=== PATIENT | male | born 1970 | race American Indian/Alaskan Native ===

== ENCOUNTER 2017-05-06 20:19 | Emergency (ER) | payer SELFPAY ==
[2017-05-06 21:26] LABS: Basophils # (Auto) 0.1 K/mm3 (0.0-0.1); Basophils % (Auto) 0.6 % (0.0-1.8); Eosinophils # (Auto) 0.2 K/mm3 (0.0-0.4); Hematocrit 39.7 % (35.5-45.6); Hemoglobin 12.6 gm/dl (11.8-15.2); Lymphocytes # (Auto) 2.4 K/mm3 (1.2-5.4); Lymphocytes % (Auto) 24.9 % (13.4-35.0); Mean Corpuscular HGB Conc 32 % (32-34); Mean Corpuscular Hemoglobin 26 pg (28-32); Mean Corpuscular Volume 82 fl (84-94); Monocytes # (Auto) 0.9 K/mm3 (0.0-0.8); Platelet Count 189 K/mm3 (140-440); Red Blood Count 4.83 M/mm3 (3.65-5.03); Red Cell Distribution Width 14.3 % (13.2-15.2)
[2017-05-06 21:51] LABS: BUN/Creatinine Ratio 14; Blood Urea Nitrogen 20 mg/dL (9-20); Calcium 8.8 mg/dL (8.4-10.2); Hemolysis Index 5
--- NOTE | 2017-05-06 22:04 | XRay Report ---
FINAL REPORT PROCEDURE: XR CHEST ROUTINE 2V TECHNIQUE: PA and lateral chest radiographs were obtained. CPT 56726 HISTORY: Shortness of breath COMPARISON: No prior studies are available for comparison. FINDINGS: Heart: The cardiac silhouette is enlarged. Mediastinum/Vessels: Normal. Lungs/Pleural space: No pulmonary infiltrate, effusion, or pneumothorax. Bony thorax: No acute osseous abnormality. Other: IMPRESSION: Prominent cardiac silhouette.
[2017-05-07] MEDS ORDERED: CATAPRES PO ONE ×2 (03:16→12:15)
[2017-05-07] MEDS ORDERED: CATAPRES ONE (03:19)
[2017-05-07] MEDS ORDERED: NORVASC PO ONE (12:15)
[2017-05-07] MEDS ORDERED: LASIX IV ONE (14:22)
[2017-05-07 14:36] VITALS: BP 168/93
--- NOTE | 2017-05-07 16:02 | Emergency Department Report ---
ED Shortness of Breath HPI - General Chief Complaint: Dyspnea/Respdistress Stated Complaint: HEADACHE Source: patient Mode of arrival: Ambulatory Limitations: No Limitations - History of Present Illness Initial Comments: Mr. Power has hx of systolic HF. He presents to the ER because he feels the "fluid in my chest is backing up." He has run out of all his medications 3 weeks ago. He has PND, orthopnea, and leg edema. He denies chest pain. He denies any discomfort. MD Complaint: shortness of breath -: Gradual, week(s) (1) Pain Scale: 4 Consistency: constant Improves With: nothing Worsens With: lying flat, exertion Known History Of: congestive heart failure Treatments Prior to Arrival: none - Related Data Home Medications Medication Instructions Recorded Confirmed Last Taken Clonidine 0.2 mg PO BID 05/07/17 05/07/17 Unknown Losartan Potassium 50 mg PO DAILY 05/07/17 05/07/17 Unknown Previous Rx's Medication Instructions Recorded Last Taken Type Aspirin [Aspirin TAB] 325 mg PO QDAY #30 tablet 05/29/16 Unknown Rx AtorvaSTATin [Lipitor] 20 mg PO QHS #30 tablet 05/29/16 Unknown Rx Carvedilol [Coreg] 25 mg PO BID #60 tablet 05/29/16 Unknown Rx Clopidogrel [Plavix] 75 mg PO QDAY #30 tablet 05/29/16 Unknown Rx Furosemide [Lasix TAB] 40 mg PO BID #60 tablet 05/29/16 Unknown Rx Spironolactone [Aldactone] 25 mg PO QDAY #30 tablet 05/29/16 Unknown Rx amLODIPine [Norvasc] 5 mg PO QDAY #30 tablet 05/29/16 Unknown Rx hydrALAZINE [Apresoline TAB] 100 mg PO Q8HR #90 tab 05/29/16 Unknown Rx AtorvaSTATin [Lipitor] 20 mg PO QHS #30 tab 05/07/17 Unknown Rx Carvedilol [Coreg] 25 mg PO BID #60 tablet 05/07/17 Unknown Rx Clopidogrel [Plavix] 75 mg PO QDAY #30 tablet 05/07/17 Unknown Rx Furosemide [Lasix TAB] 40 mg PO BID #60 tablet 05/07/17 Unknown Rx Losartan [Cozaar] 50 mg PO QDAY #30 tablet 05/07/17 Unknown Rx amLODIPine [Norvasc] 5 mg PO DAILY #30 tab 05/07/17 Unknown Rx cloNIDine [Catapres] 0.2 mg PO BID #60 tablet 05/07/17 Unknown Rx hydrALAZINE [Apresoline TAB] 100 mg PO TID #90 tab 05/07/17 Unknown Rx Allergies Allergy/AdvReac Type Severity Reaction Status Date / Time No Known Allergies Allergy Verified 08/02/15 11:37 ED Review of Systems ROS: Stated complaint: HEADACHE Other details as noted in HPI Comment: All other systems reviewed and negative Constitutional: denies: chills, malaise Respiratory: denies: cough Cardiovascular: denies: chest pain ED Past Medical Hx - Past Medical History Hx Hypertension: Yes Hx Heart Attack/AMI: No Hx Congestive Heart Failure: Yes Hx Diabetes: Yes Hx Deep Vein Thrombosis: No Hx Asthma: No Hx COPD: No Hx HIV: No Additional medical history: OBESITY - Surgical History Hx Coronary Stent: No Hx Pacemaker: No Hx Internal Defibrillator: No Additional Surgical History: incision and drainage rectal area. - Social History Smoking Status: Former Smoker Substance Use Type: None - Medications Home Medications: Home Medications Medication Instructions Recorded Confirmed Last Taken Type Aspirin [Aspirin TAB] 325 mg PO QDAY #30 tablet 05/29/16 05/07/17 Unknown Rx AtorvaSTATin [Lipitor] 20 mg PO QHS #30 tablet 05/29/16 05/07/17 Unknown Rx Carvedilol [Coreg] 25 mg PO BID #60 tablet 05/29/16 05/07/17 Unknown Rx Clopidogrel [Plavix] 75 mg PO QDAY #30 tablet 05/29/16 05/07/17 Unknown Rx Furosemide [Lasix TAB] 40 mg PO BID #60 tablet 05/29/16 05/07/17 Unknown Rx Spironolactone [Aldactone] 25 mg PO QDAY #30 tablet 05/29/16 05/07/17 Unknown Rx amLODIPine [Norvasc] 5 mg PO QDAY #30 tablet 05/29/16 05/07/17 Unknown Rx hydrALAZINE [Apresoline TAB] 100 mg PO Q8HR #90 tab 05/29/16 05/07/17 Unknown Rx AtorvaSTATin [Lipitor] 20 mg PO QHS #30 tab 05/07/17 Unknown Rx Carvedilol [Coreg] 25 mg PO BID #60 tablet 05/07/17 Unknown Rx Clonidine 0.2 mg PO BID 05/07/17 05/07/17 Unknown History Clopidogrel [Plavix] 75 mg PO QDAY #30 tablet 05/07/17 Unknown Rx Furosemide [Lasix TAB] 40 mg PO BID #60 tablet 05/07/17 Unknown Rx Losartan Potassium 50 mg PO DAILY 05/07/17 05/07/17 Unknown History Losartan [Cozaar] 50 mg PO QDAY #30 tablet 05/07/17 Unknown Rx amLODIPine [Norvasc] 5 mg PO DAILY #30 tab 05/07/17 Unknown Rx cloNIDine [Catapres] 0.2 mg PO BID #60 tablet 05/07/17 Unknown Rx hydrALAZINE [Apresoline TAB] 100 mg PO TID #90 tab 05/07/17 Unknown Rx ED Physical Exam - General Limitations: No Limitations General appearance: alert, in no apparent distress - Head Head exam: Present: atraumatic, normocephalic - Eye Eye exam: Present: normal appearance - ENT ENT exam: Present: mucous membranes moist - Neck Neck exam: Present: normal inspection - Respiratory Respiratory exam: Present: normal lung sounds bilaterally. Absent: respiratory distress, wheezes, rales, rhonchi - Cardiovascular Cardiovascular Exam: Present: regular rate, normal rhythm, normal heart sounds. Absent: systolic murmur, diastolic murmur, rubs, gallop, S3 - GI/Abdominal GI/Abdominal exam: Present: soft, normal bowel sounds. Absent: distended, tenderness, guarding - Rectal Rectal exam: Present: deferred - Extremities Exam Extremities exam: Present: normal inspection, pedal edema - Back Exam Back exam: Present: normal inspection - Neurological Exam Neurological exam: Present: alert, oriented X3 - Psychiatric Psychiatric exam: Present: normal affect, normal mood - Skin Skin exam: Present: warm, dry, intact, normal color. Absent: rash ED Course Vital Signs 05/06/17 05/07/17 05/07/17 20:21 03:08 03:23 Temperature 98.8 F 98.8 F Pulse Rate 86 79 79 Respiratory 16 19 Rate Blood Pressure 190/117 198/129 198/129 Blood Pressure [Right] O2 Sat by Pulse 95 98 Oximetry 05/07/17 05/07/17 05/07/17 12:06 12:19 14:36 Temperature 98.8 F Pulse Rate 77 79 72 Respiratory 20 16 Rate Blood Pressure 191/128 Blood Pressure 191/128 168/93 [Right] O2 Sat by Pulse 98 95 Oximetry ED Medical Decision Making - Lab Data Result diagrams: 05/06/17 21:07 05/06/17 21:07 Laboratory Results - last 24 hr 05/06/17 05/06/17 05/06/17 21:07 21:07 21:07 WBC 9.8 RBC 4.83 Hgb 12.6 Hct 39.7 MCV 82 L MCH 26 L MCHC 32 RDW 14.3 Plt Count 189 Lymph % (Auto) 24.9 [place] % (Auto) 9.0 H Eos % (Auto) 2.0 Baso % (Auto) 0.6 Lymph # 2.4 [place] # 0.9 H Eos # 0.2 Baso # 0.1 Seg Neutrophils % 63.5 Seg Neutrophils # 6.2 Sodium 137 Potassium 3.7 Chloride 97.6 L Carbon Dioxide 27 Anion Gap 16 BUN 20 Creatinine 1.4 Estimated GFR > 60 BUN/Creatinine Ratio 14 Glucose 201 H Calcium 8.8 NT-Pro-B Natriuret Pep 1568 H - EKG Data 05/07/17 15:57 EKG NSR 80 bpm nl axis normal intervals positive LVH with nonspecific T-wave pattern and LVH repolarization abnormality unchanged from EKG obtained [address] elevation - Radiology Data Radiology results: report reviewed - Medical Decision Making Mr. Power presents with mild exacerbation of CHF without acute issues or ACS. He appears well. Able to lay in bed at 45 degrees without discomfort. I have refilled the following prescriptions: Hydralazine Carvedilol Amlodipine Losartan Furosemide Clopidogrel Atorvastatin Critical care attestation.: If time is entered above; I have spent that time in minutes in the direct care of this critically ill patient, excluding procedure time. ED Disposition Clinical Impression: Acute systolic CHF (congestive heart failure) Disposition: DC-01 TO HOME OR SELFCARE Is pt being admited?: No Does the pt Need Aspirin: No Condition: Good Prescriptions: AtorvaSTATin [Lipitor] 20 mg PO QHS #30 tab amLODIPine [Norvasc] 5 mg PO DAILY #30 tab Carvedilol [Coreg] 25 mg PO BID #60 tablet cloNIDine [Catapres] 0.2 mg PO BID #60 tablet Clopidogrel [Plavix] 75 mg PO QDAY #30 tablet Furosemide [Lasix TAB] 40 mg PO BID #60 tablet hydrALAZINE [Apresoline TAB] 100 mg PO TID #90 tab Losartan [Cozaar] 50 mg PO QDAY #30 tablet Referrals: TERESA FREY MD [Primary Care Provider] - 3-5 Days
== END 2017-05-07 16:34 | disposition home or self-care (01) ==
LOC: ED 20:19
DX: I11.0 Hypertensive heart disease with heart failure (principal); I50.21 Acute systolic (congestive) heart failure; E11.9 Type 2 diabetes mellitus without complications; Z87.891 Personal history of nicotine dependence
CPT/HCPCS: 36415; 71046; 80048; 83880; 85025; 93005; 93010; 96374; 99284; J1940

== ENCOUNTER 2017-05-24 02:15 | Inpatient (IN) | payer SELFPAY ==
[2017-05-24] MEDS ORDERED: CATAPRES ONE (02:53)
[2017-05-24 03:24] LABS: Basophils % (Auto) 0.3 % (0.0-1.8); Eosinophils # (Auto) 0.3 K/mm3 (0.0-0.4); Eosinophils % (Auto) 2.5 % (0.0-4.3); Hematocrit 39.8 % (35.5-45.6); Hemoglobin 12.9 gm/dl (11.8-15.2); Lymphocytes # (Auto) 2.8 K/mm3 (1.2-5.4); Lymphocytes % (Auto) 23.3 % (13.4-35.0); Mean Corpuscular HGB Conc 33 % (32-34); Mean Corpuscular Hemoglobin 27 pg (28-32); Mean Corpuscular Volume 83 fl (84-94); Monocytes # (Auto) 1.2 K/mm3 (0.0-0.8); Monocytes % (Auto) 10.4 % (0.0-7.3); Platelet Count 198 K/mm3 (140-440); Red Blood Count 4.81 M/mm3 (3.65-5.03); Red Cell Distribution Width 14.5 % (13.2-15.2)
[2017-05-24] MEDS ORDERED: CATAPRES PO ONE (03:30)
[2017-05-24 03:43] LABS: Calcium 9.1 mg/dL (8.4-10.2)
--- NOTE | 2017-05-24 04:08 | XRay Report ---
FINAL REPORT EXAM: XR CHEST ROUTINE 2V HISTORY: Shortness of breath TECHNIQUE: PA and lateral chest radiographs PRIORS: 05/06/2017 FINDINGS: No mediastinal shift. Cardiac silhouette is enlarged and unchanged. No pneumothorax, effusion, or focal pulmonary opacity. No acute skeletal finding. IMPRESSION: Unchanged enlargement of the cardiac silhouette compared to 05/06/2017, which may be secondary to primary cardiomegaly or pericardial effusion. Correlation with cardiac function is requested.
[2017-05-24 04:26] LABS: Chol/HDL Ratio 6.81 %
[2017-05-24] MEDS ORDERED: LASIX IV ONE ×2 (06:42→13:52)
[2017-05-24] MEDS ORDERED: BABY ASPIRIN PO ONE (06:42)
--- NOTE | 2017-05-24 06:47 | Emergency Department Report ---
ED Chest Pain HPI - General Chief Complaint: Chest Pain Stated Complaint: ANNELIESE; CP Time Seen by Provider: 05/24/17 06:31 Source: patient Mode of arrival: Ambulatory Limitations: No Limitations - History of Present Illness Initial Comments: This is a 46-year-old male presents to the emergency department with complaint of "CHF" as he says that he has "a lot of fluid building up in my body." He has a history of CHF, diabetes, hypertension. He was here in late April for a medication refill of his hypertensive meds, diabetic meds and diuretics but says that he does not get paid until tomorrow and therefore could not afford to refill those medications. He has a primary care physician through [facility], and says he used to see [facility]. He denies any tobacco or illicit drug use or abuse. He drove himself in to be seen today and did not take anything for her symptoms prior to presentation. No known aggravating or alleviating factors. He does feel that there is lower extremity swelling. He denies any nausea, vomiting, diaphoresis , back pain. - Related Data Previous Rx's Medication Instructions Recorded Last Taken Type Aspirin [Aspirin TAB] 325 mg PO QDAY #30 tablet 05/29/16 Unknown Rx Spironolactone [Aldactone] 25 mg PO QDAY #30 tablet 05/29/16 Unknown Rx AtorvaSTATin [Lipitor] 20 mg PO QHS #30 tab 05/07/17 Unknown Rx Carvedilol [Coreg] 25 mg PO BID #60 tablet 05/07/17 Unknown Rx Clopidogrel [Plavix] 75 mg PO QDAY #30 tablet 05/07/17 Unknown Rx Furosemide [Lasix TAB] 40 mg PO BID #60 tablet 05/07/17 Unknown Rx Losartan [Cozaar] 50 mg PO QDAY #30 tablet 05/07/17 Unknown Rx amLODIPine [Norvasc] 5 mg PO DAILY #30 tab 05/07/17 Unknown Rx cloNIDine [Catapres] 0.2 mg PO BID #60 tablet 05/07/17 Unknown Rx hydrALAZINE [Apresoline TAB] 100 mg PO TID #90 tab 05/07/17 Unknown Rx Allergies Allergy/AdvReac Type Severity Reaction Status Date / Time No Known Allergies Allergy Verified 08/02/15 11:37 Heart Score - HEART Score History: Slightly suspicious EKG: Non-specific Age: 45-65 Risk factors: 1-2 risk factors Troponin: < normal limit HEART Score: 3 - Critical Actions Critical Actions: 0-3 pts:0.9-1.7%risk of adverse cardiac event.Candidate for discharge ED Review of Systems ROS: Stated complaint: ANNELIESE; CP Other details as noted in HPI Comment: All other systems reviewed and negative Constitutional: denies: chills, fever Eyes: denies: eye pain, eye discharge, vision change ENT: denies: ear pain, throat pain Respiratory: shortness of breath. denies: cough Cardiovascular: chest pain, edema Gastrointestinal: denies: abdominal pain, nausea, diarrhea Genitourinary: denies: urgency, dysuria Musculoskeletal: denies: back pain, joint swelling, arthralgia Skin: denies: rash, lesions Neurological: denies: headache, weakness, paresthesias ED Past Medical Hx - Past Medical History Previous Medical History?: Yes Hx Hypertension: Yes Hx Heart Attack/AMI: No Hx Congestive Heart Failure: Yes Hx Diabetes: Yes Hx Deep Vein Thrombosis: No Hx Asthma: No Hx COPD: No Hx HIV: No Additional medical history: OBESITY - Surgical History Past Surgical History?: Yes Hx Coronary Stent: No Hx Pacemaker: No Hx Internal Defibrillator: No Additional Surgical History: incision and drainage rectal area. - Social History Smoking Status: Former Smoker Substance Use Type: None - Medications Home Medications: Home Medications Medication Instructions Recorded Confirmed Last Taken Type Aspirin [Aspirin TAB] 325 mg PO QDAY #30 tablet 05/29/16 05/07/17 Unknown Rx Spironolactone [Aldactone] 25 mg PO QDAY #30 tablet 05/29/16 05/07/17 Unknown Rx AtorvaSTATin [Lipitor] 20 mg PO QHS #30 tab 05/07/17 Unknown Rx Carvedilol [Coreg] 25 mg PO BID #60 tablet 05/07/17 Unknown Rx Clopidogrel [Plavix] 75 mg PO QDAY #30 tablet 05/07/17 Unknown Rx Furosemide [Lasix TAB] 40 mg PO BID #60 tablet 05/07/17 Unknown Rx Losartan [Cozaar] 50 mg PO QDAY #30 tablet 05/07/17 Unknown Rx amLODIPine [Norvasc] 5 mg PO DAILY #30 tab 05/07/17 Unknown Rx cloNIDine [Catapres] 0.2 mg PO BID #60 tablet 05/07/17 Unknown Rx hydrALAZINE [Apresoline TAB] 100 mg PO TID #90 tab 05/07/17 Unknown Rx ED Physical Exam - General Limitations: No Limitations - Other Other exam information: GENERAL: The patient is well-developed well-nourished. HENT: Normocephalic. Atraumatic. Patient has moist mucous membranes. EYES: Extraocular motions are intact. Pupils equal reactive to light bilaterally. NECK: Supple. Trachea is midline. CHEST/LUNGS: Coarse breath sounds throughout the chest. No tachypnea or accessory muscle use. There is no respiratory distress noted. HEART/CARDIOVASCULAR: Regular. There is no tachycardia. There is no murmur. ABDOMEN: Abdomen is soft, nontender. Patient has normal bowel sounds. Morbidly obese habitus. SKIN: Skin is warm and dry. 2+ pitting edema to bilateral lower extremities. NEURO: The patient is awake, alert, and oriented. The patient is cooperative. The patient has no focal neurologic deficits. The patient has normal speech. MUSCULOSKELETAL: There is no tenderness or deformity. There is no limitation range of motion. There is no evidence of acute injury. ED Course Vital Signs 05/24/17 05/24/17 02:37 06:35 Temperature 98.6 F 98.3 F Pulse Rate 84 76 Respiratory 20 12 Rate Blood Pressure 179/123 Blood Pressure 185/116 [Left] O2 Sat by Pulse 92 99 Oximetry MERVAT score - Mervat Score Age > 65: (0) No Aspirin use within the Past 7 Days: (0) No 3 or more CAD Risk Factors: (1) Yes 2 or more Angina events in past 24 hrs: (1) Yes Known CAD with more than 50% Stenosis: (0) No Elevated Cardiac Markers: (0) No ST Deviation Greater than 0.5mm: (0) No MERVAT Score: 2 ED Medical Decision Making - Lab Data Result diagrams: 05/24/17 02:52 05/24/17 02:52 - EKG Data -: EKG Interpreted by Me EKG shows normal: sinus rhythm, axis, intervals (prolonged IA interval), QRS complexes (incomplete left bundle branch block, LVH), ST-T waves (early repolarization) Rate: normal - EKG Data When compared to previous EKG there are: no significant change Interpretation: unchanged when compared t (05/06/17) - Radiology Data Radiology results: image reviewed interpreted by me: Chest x-ray shows moderate cardiomegaly. No obvious pleural effusion or pneumonia. - Medical Decision Making This patient presented with shortness of breath and chest pain and lower extremity swelling. He has a history of CHF and does appear to have an exacerbation with a BNP of November 1999. He also has elevated troponin that came in at 0.041 but has trended down into the normal range since he has been in the emergency department. He was given some Lasix for diuresis. He will be admitted to the hospital for further evaluation and cardiology consultation and was accepted for admission by the hospitalist service. I have discussed with the patient the lab and imaging results and the plan for admission to the hospital and he understands and agrees with plan. - Differential Diagnosis CHF, [place], pneumonia, venous stasis Critical Care Time: No Critical care attestation.: If time is entered above; I have spent that time in minutes in the direct care of this critically ill patient, excluding procedure time. ED Disposition Clinical Impression: Renal insufficiency Hypertension Qualifiers: Hypertension type: essential hypertension Qualified Code(s): I10 - Essential ( primary) hypertension CHF exacerbation Qualifiers: Congestive heart failure type: unspecified Qualified Code(s): I50.9 - Heart failure, unspecified Chest pain Qualifiers: Chest pain type: unspecified Qualified Code(s): R07.9 - Chest pain, unspecified Edema Qualifiers: Edema type: unspecified Qualified Code(s): R60.9 - Edema, unspecified Disposition: DC-09 OP ADMIT IP TO THIS HOSP Is pt being admited?: Yes Condition: Stable Instructions: Chest Pain (ED), Hypertension (ED) Time of Disposition: 10:48
[2017-05-24] MEDS: HEPARIN SUB-Q SCH ×2 (09:26→18:58)
[2017-05-24] MEDS ORDERED: TYLENOL PO PRN (13:05)
[2017-05-24] MEDS ORDERED: D50W (25GM) Syringe IV PRN (13:05)
[2017-05-24] MEDS ORDERED: MILK OF MAGNESIA PO PRN (13:05)
[2017-05-24] MEDS ORDERED: ZOFRAN IV PRN (13:05)
[2017-05-24] MEDS ORDERED: DULCOLAX PR PRN (13:05)
--- NOTE | 2017-05-24 13:25 | History and Physical Report ---
History of Present Illness Date of examination: 05/24/17 Date of admission: 05/24/17 Chief complaint: sob History of present illness: This is a 46-year-old -[place] male with significant past medical history CHF, diabetes mellitus type 2 and hypertension who presents to the emergency department with complaints of shortness of breath, orthopnea and lower extremity edema for the past 3 weeks. He was here in late April for a medication refill of his hypertensive meds, diabetic meds and diuretics but says that he does not get paid until tomorrow and therefore could not afford to refill those medications. He has a primary care physician through [facility] , and says he used to see [facility]. He denies any tobacco or illicit drug use or abuse. He drove himself in to be seen today and did not take anything for her symptoms prior to presentation. No known aggravating or alleviating factors. Patient reports that he was diagnosed with diabetes and CHF last year. Patient denies any chest pain, fever, chills, cough or cold symptoms. Past History Past Medical History: diabetes, heart failure, hypertension Past Surgical History: No surgical history Social history: no significant social history Family history: no significant family history Medications and Allergies Allergies Allergy/AdvReac Type Severity Reaction Status Date / Time No Known Allergies Allergy Verified 08/02/15 11:37 Home Medications Medication Instructions Recorded Confirmed Last Taken Type Aspirin [Aspirin TAB] 325 mg PO QDAY #30 tablet 05/29/16 05/24/17 Unknown Rx Spironolactone [Aldactone] 25 mg PO QDAY #30 tablet 05/29/16 05/24/17 Unknown Rx AtorvaSTATin [Lipitor] 20 mg PO QHS #30 tab 05/07/17 05/24/17 Unknown Rx Carvedilol [Coreg] 25 mg PO BID #60 tablet 05/07/17 05/24/17 Unknown Rx Clopidogrel [Plavix] 75 mg PO QDAY #30 tablet 05/07/17 05/24/17 Unknown Rx Furosemide [Lasix TAB] 40 mg PO BID #60 tablet 05/07/17 05/24/17 Unknown Rx Losartan [Cozaar] 50 mg PO QDAY #30 tablet 05/07/17 05/24/17 Unknown Rx amLODIPine [Norvasc] 5 mg PO DAILY #30 tab 05/07/17 05/24/17 Unknown Rx cloNIDine [Catapres] 0.2 mg PO BID #60 tablet 05/07/17 05/24/17 Unknown Rx hydrALAZINE [Apresoline TAB] 100 mg PO TID #90 tab 05/07/17 05/24/17 Unknown Rx Active Meds: Active Medications Acetaminophen (Tylenol) 650 mg PO Q4H PRN PRN Reason: Pain MILD(1-3)/Fever >100.5/SANTANA Bisacodyl (Dulcolax) 10 mg CO QDAY PRN PRN Reason: Constipation unrelieved by MOM Dextrose (D50w (25gm) Syringe) 50 ml IV PRN PRN PRN Reason: Hypoglycemia Heparin Sodium (Porcine) (Heparin) 5,000 unit SUB-Q Q8H MARIBEL Last Admin: 05/24/17 09:26 Dose: 5,000 unit Magnesium Hydroxide (Milk Of Magnesia) 30 ml PO Q4H PRN PRN Reason: Constipation Ondansetron HCl (Zofran) 4 mg IV Q8H PRN PRN Reason: N/V unrelieved by Reglan Review of Systems All systems: negative Exam - Constitutional Vitals: Temp Pulse Resp BP Pulse Ox 98.3 F 76 12 185/116 99 05/24/17 06:35 05/24/17 06:35 05/24/17 06:35 05/24/17 06:35 05/24/17 06:35 General appearance: Present: no acute distress, well-nourished - EENT Eyes: Present: PERRL ENT: hearing intact, clear oral mucosa - Neck Neck: Present: supple, normal ROM - Respiratory Respiratory effort: normal Respiratory: bilateral: rales - Cardiovascular Heart Sounds: Present: S1 & S2. Absent: rub, click - Extremities Extremities: pulses symmetrical, No edema Peripheral Pulses: within normal limits - Abdominal General gastrointestinal: Present: soft, non-tender, non-distended, normal bowel sounds Male genitourinary: Present: normal - Integumentary Integumentary: Present: clear, warm, dry - Musculoskeletal Musculoskeletal: gait normal, strength equal bilaterally - Psychiatric Psychiatric: appropriate mood/affect, intact judgment & insight - Neurologic Neurologic: CNII-XII intact, moves all extremities Results - Labs CBC & Chem 7: 05/24/17 02:52 05/24/17 02:52 Labs: Laboratory Last Values WBC 12.0 K/mm3 (4.5-11.0) H 05/24/17 02:52 RBC 4.81 M/mm3 (3.65-5.03) 05/24/17 02:52 Hgb 12.9 gm/dl (11.8-15.2) 05/24/17 02:52 Hct 39.8 % (35.5-45.6) 05/24/17 02:52 MCV 83 fl (84-94) L 05/24/17 02:52 MCH 27 pg (28-32) L 05/24/17 02:52 MCHC 33 % (32-34) 05/24/17 02:52 RDW 14.5 % (13.2-15.2) 05/24/17 02:52 Plt Count 198 K/mm3 (140-440) 05/24/17 02:52 Lymph % (Auto) 23.3 % (13.4-35.0) 05/24/17 02:52 [place] % (Auto) 10.4 % (0.0-7.3) H 05/24/17 02:52 Eos % (Auto) 2.5 % (0.0-4.3) 05/24/17 02:52 Baso % (Auto) 0.3 % (0.0-1.8) 05/24/17 02:52 Lymph # 2.8 K/mm3 (1.2-5.4) 05/24/17 02:52 [place] # 1.2 K/mm3 (0.0-0.8) H 05/24/17 02:52 Eos # 0.3 K/mm3 (0.0-0.4) 05/24/17 02:52 Baso # 0.0 K/mm3 (0.0-0.1) 05/24/17 02:52 Seg Neutrophils % 63.5 % (40.0-70.0) 05/24/17 02:52 Seg Neutrophils # 7.6 K/mm3 (1.8-7.7) 05/24/17 02:52 Sodium 138 mmol/L (137-145) 05/24/17 02:52 Potassium 4.0 mmol/L (3.6-5.0) 05/24/17 02:52 Chloride 97.1 mmol/L (98-107) L 02/09/18 02:52 Carbon Dioxide 25 mmol/L (22-30) 05/24/17 02:52 Anion Gap 20 mmol/L 05/24/17 02:52 BUN 23 mg/dL (9-20) H 05/24/17 02:52 Creatinine 1.6 mg/dL (0.8-1.5) H 05/24/17 02:52 Estimated GFR 57 ml/min 05/24/17 02:52 BUN/Creatinine Ratio 14 % 05/24/17 02:52 Glucose 151 mg/dL (75-100) H 05/24/17 02:52 Calcium 9.1 mg/dL (8.4-10.2) 05/24/17 02:52 Troponin T 0.024 ng/mL (0.00-0.029) 05/24/17 09:01 NT-Pro-B Natriuret Pep 1856 pg/mL (0-450) H 05/24/17 06:16 Triglycerides 196 mg/dL (2-149) H 05/24/17 02:52 Cholesterol 184 mg/dL (50-199) 05/24/17 02:52 LDL Cholesterol Direct 118 mg/dL (50-130) 05/24/17 02:52 HDL Cholesterol 27 mg/dL (40-59) L 05/24/17 02:52 Cholesterol/HDL Ratio 6.81 % 05/24/17 02:52 Assessment and Plan Assessment and plan: Acute combined systolic and diastolic heart failure with decompensation. Patient with echocardiogram in March 2016, which revealed severe global hypokinesis with EF 20-25% and systolic function that is severely decreased. Also, abnormal left ventricular diastolic filling consistent with impaired relaxation. Acute hypoxia respiratory failure. Etiology secondary to 1. Nonischemic cardiomyopathy. Patient with 4 chambered dilatation on echocardiogram. No ischemia by 2015. Elevated troponin. Patient denies any chest pain. Etiology likely secondary to heart failure/cardiomyopathy. CKD. Patient appears to be near baseline creatinine. History of CVA. Patient with small cortical CVA in the right cortical low. Continue Plavix daily. Medical noncompliance. Patient will be counseled with importance of medications.
[2017-05-24] MEDS ORDERED: LASIX ONE (15:39)
[2017-05-24] MEDS ORDERED: APRESOLINE ONE ×2 (15:40→21:24)
[2017-05-24] MEDS: APRESOLINE PO SCH ×2 (15:46→21:26)
[2017-05-24] MEDS ORDERED: HEPARIN ONE (18:54)
[2017-05-24] MEDS: COREG PO SCH (23:00)
[2017-05-24] MEDS: CATAPRES PO SCH (23:01)
[2017-05-25] MEDS: HEPARIN SUB-Q SCH ×3 (00:58→18:18)
[2017-05-25 06:35] LABS: Basophils % (Auto) 0.4 % (0.0-1.8); Eosinophils # (Auto) 0.3 K/mm3 (0.0-0.4); Eosinophils % (Auto) 3.1 % (0.0-4.3); Hematocrit 38.2 % (35.5-45.6); Hemoglobin 12.2 gm/dl (11.8-15.2); Lymphocytes # (Auto) 2.6 K/mm3 (1.2-5.4); Lymphocytes % (Auto) 29.3 % (13.4-35.0); Mean Corpuscular HGB Conc 32 % (32-34); Mean Corpuscular Hemoglobin 26 pg (28-32); Mean Corpuscular Volume 82 fl (84-94); Monocytes # (Auto) 0.9 K/mm3 (0.0-0.8); Platelet Count 214 K/mm3 (140-440); Red Blood Count 4.68 M/mm3 (3.65-5.03); Red Cell Distribution Width 14.6 % (13.2-15.2)
[2017-05-25 07:11] LABS: Calcium 8.6 mg/dL (8.4-10.2)
[2017-05-25] MEDS: APRESOLINE PO SCH ×3 (09:06→21:32)
[2017-05-25] MEDS: CATAPRES PO SCH ×2 (11:01→21:31)
[2017-05-25] MEDS: ASPIRIN PO SCH (11:01)
[2017-05-25] MEDS: ALDACTONE PO SCH (11:01)
[2017-05-25] MEDS: NORVASC PO SCH (11:02)
[2017-05-25] MEDS: COZAAR PO SCH (11:02)
[2017-05-25] MEDS: COREG PO SCH ×2 (11:02→21:32)
[2017-05-25] MEDS: PLAVIX PO SCH (11:03)
--- NOTE | 2017-05-25 11:14 | Consultation ---
History of Present Illness Consult date: 05/25/17 Consult reason: congestive heart failure History of present illness: This is a 46-year-old obese -[place] male with a history of dilated nonischemic cardiomyopathy presenting with shortness of breath and pedal edema. Patient gives a history of noncompliance of medication. Past History Past Medical History: diabetes, heart failure, hypertension Past Surgical History: No surgical history Social history: no significant social history Family history: no significant family history Medications and Allergies Allergies Allergy/AdvReac Type Severity Reaction Status Date / Time No Known Allergies Allergy Verified 08/02/15 11:37 Home Medications Medication Instructions Recorded Confirmed Last Taken Type Aspirin [Aspirin TAB] 325 mg PO QDAY #30 tablet 05/29/16 05/24/17 Unknown Rx Spironolactone [Aldactone] 25 mg PO QDAY #30 tablet 05/29/16 05/24/17 Unknown Rx AtorvaSTATin [Lipitor] 20 mg PO QHS #30 tab 05/07/17 05/24/17 Unknown Rx Carvedilol [Coreg] 25 mg PO BID #60 tablet 05/07/17 05/24/17 Unknown Rx Clopidogrel [Plavix] 75 mg PO QDAY #30 tablet 05/07/17 05/24/17 Unknown Rx Furosemide [Lasix TAB] 40 mg PO BID #60 tablet 05/07/17 05/24/17 Unknown Rx Losartan [Cozaar] 50 mg PO QDAY #30 tablet 05/07/17 05/24/17 Unknown Rx amLODIPine [Norvasc] 5 mg PO DAILY #30 tab 05/07/17 05/24/17 Unknown Rx cloNIDine [Catapres] 0.2 mg PO BID #60 tablet 05/07/17 05/24/17 Unknown Rx hydrALAZINE [Apresoline TAB] 100 mg PO TID #90 tab 05/07/17 05/24/17 Unknown Rx Active Meds: Active Medications Acetaminophen (Tylenol) 650 mg PO Q4H PRN PRN Reason: Pain MILD(1-3)/Fever >100.5/SANTANA Amlodipine Besylate (Norvasc) 5 mg PO DAILY [facility] Last Admin: 05/25/17 11:02 Dose: 5 mg Aspirin (Aspirin) 325 mg PO QDAY [facility] Last Admin: 05/25/17 11:01 Dose: 325 mg Atorvastatin Calcium (Lipitor) 20 mg PO QHS [facility] Last Admin: 05/24/17 23:01 Dose: 20 mg Bisacodyl (Dulcolax) 10 mg [place] QDAY PRN PRN Reason: Constipation unrelieved by MOM Carvedilol (Coreg) 25 mg PO BID [facility] Last Admin: 05/25/17 11:02 Dose: 25 mg Clonidine HCl (Catapres) 0.2 mg PO BID [facility] Last Admin: 05/25/17 11:01 Dose: 0.2 mg Clopidogrel Bisulfate (Plavix) 75 mg PO QDAY [facility] Last Admin: 05/25/17 11:03 Dose: 75 mg Dextrose (D50w (25gm) Syringe) 50 ml IV PRN PRN PRN Reason: Hypoglycemia Heparin Sodium (Porcine) (Heparin) 5,000 unit SUB-Q Q8H [facility] Last Admin: 05/25/17 09:06 Dose: 5,000 unit Hydralazine HCl (Apresoline) 100 mg PO TID [facility] Last Admin: 05/25/17 09:06 Dose: 100 mg Losartan Potassium (Cozaar) 50 mg PO QDAY [facility] Last Admin: 05/25/17 11:02 Dose: 50 mg Magnesium Hydroxide (Milk Of Magnesia) 30 ml PO Q4H PRN PRN Reason: Constipation Ondansetron HCl (Zofran) 4 mg IV Q8H PRN PRN Reason: N/V unrelieved by Reglan Spironolactone (Aldactone) 25 mg PO QDAY [facility] Last Admin: 05/25/17 11:01 Dose: 25 mg Review of Systems All systems: negative Cardiovascular: orthopnea, edema, shortness of breath, dyspnea on exertion Physical Examination Vital Signs Temp Pulse Resp BP Pulse Ox 98.6 F 84 20 179/123 92 05/24/17 02:37 05/24/17 02:37 05/24/17 02:37 05/24/17 02:37 05/24/17 02:37 General appearance: no acute distress, obese HEENT: Positive: PERRL, Normocephaly, Mucus Membranes Moist Neck: Positive: neck supple, trachea midline, JVD/HJR Cardiac: Positive: S1/S2, S3, Gallop, PMI, Dilated, Laterally Displaced Lungs: Positive: clear to auscultation, No Wheeze, Rales, Rhonchi Neuro: Positive: Grossly Intact Abdomen: Positive: Unremarkable, Soft, Active Bowel Sounds Extremities: Present: +1 Edema Results 05/25/17 06:04 05/25/17 06:04 CBC 05/25/17 Range/Units 06:04 WBC 8.9 (4.5-11.0) K/mm3 RBC 4.68 (3.65-5.03) M/mm3 Hgb 12.2 (11.8-15.2) gm/dl Hct 38.2 (35.5-45.6) % Plt Count 214 (140-440) K/mm3 Lymph # 2.6 (1.2-5.4) K/mm3 [place] # 0.9 H (0.0-0.8) K/mm3 Eos # 0.3 (0.0-0.4) K/mm3 Baso # 0.0 (0.0-0.1) K/mm3 Comprehensive Metabolic Panel 05/25/17 Range/Units 06:04 Sodium 137 (137-145) mmol/L Potassium 3.7 (3.6-5.0) mmol/L Chloride 95.0 L (98-107) mmol/L Carbon Dioxide 28 (22-30) mmol/L BUN 24 H (9-20) mg/dL Creatinine 1.6 H (0.8-1.5) mg/dL Glucose 118 H (75-100) mg/dL Calcium 8.6 (8.4-10.2) mg/dL EKG interpretations - Telemetry EKG Rhythm: Sinus Rhythm Assessment and Plan 1. 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 2. Dilated cardiomyopathy last LV ejection fraction documented in old records LV ejection fraction is 15% 3. Type 2 diabetes mellitus 4. Essential hypertension 5. Obesity Plan. Resume home medication follow-up Echocardiogram to assess current LV function
--- NOTE | 2017-05-25 11:26 | Progress Note ---
Assessment and Plan Assessment and plan: Acute combined systolic and diastolic heart failure with decompensation. Patient with echocardiogram in March 2016, which revealed severe global hypokinesis with EF 20-25% and systolic function that is severely decreased. Also, abnormal left ventricular diastolic filling consistent with impaired relaxation. Repeat echocardiogram pending. Acute hypoxic respiratory failure. Etiology secondary to 1. Nonischemic cardiomyopathy. Patient with 4 chambered dilatation on echocardiogram. No ischemia by 2015. Elevated troponin. Patient denies any chest pain. Etiology likely secondary to heart failure/cardiomyopathy. CKD. Patient appears to be near baseline creatinine. History of CVA. Patient with small cortical CVA in the right cortical low. Continue Plavix daily. Medical noncompliance. Patient will be counseled with importance of medications. History Interval history: No new issues overnight Hospitalist Physical - Constitutional Vitals: Temp Pulse Resp BP Pulse Ox 97.6 F 74 24 158/105 99 05/25/17 08:06 05/25/17 11:10 05/25/17 11:10 05/25/17 11:10 05/25/17 08:06 General appearance: Present: no acute distress, obese - EENT Eyes: Present: PERRL, EOM intact ENT: hearing intact, clear oral mucosa, dentition normal - Neck Neck: Present: supple, normal ROM - Respiratory Respiratory effort: normal Respiratory: bilateral: CTA - Cardiovascular Rhythm: regular Heart Sounds: Present: S1 & S2. Absent: gallop, rub - Extremities Extremities: no ischemia, No edema, Full ROM - Abdominal General gastrointestinal: soft, non-tender, non-distended, normal bowel sounds - Integumentary Integumentary: Present: clear, warm, dry - Neurologic Neurologic: CNII-XII intact, moves all extremities Results - Labs CBC & Chem 7: 05/25/17 06:04 05/25/17 06:04 Labs: Laboratory Last Values WBC 8.9 K/mm3 (4.5-11.0) 05/25/17 06:04 RBC 4.68 M/mm3 (3.65-5.03) 05/25/17 06:04 Hgb 12.2 gm/dl (11.8-15.2) 05/25/17 06:04 Hct 38.2 % (35.5-45.6) 05/25/17 06:04 MCV 82 fl (84-94) L 05/25/17 06:04 MCH 26 pg (28-32) L 05/25/17 06:04 MCHC 32 % (32-34) 05/25/17 06:04 RDW 14.6 % (13.2-15.2) 05/25/17 06:04 Plt Count 214 K/mm3 (140-440) 05/25/17 06:04 Lymph % (Auto) 29.3 % (13.4-35.0) 05/25/17 06:04 [place] % (Auto) 10.0 % (0.0-7.3) H 05/25/17 06:04 Eos % (Auto) 3.1 % (0.0-4.3) 05/25/17 06:04 Baso % (Auto) 0.4 % (0.0-1.8) 05/25/17 06:04 Lymph # 2.6 K/mm3 (1.2-5.4) 05/25/17 06:04 [place] # 0.9 K/mm3 (0.0-0.8) H 05/25/17 06:04 Eos # 0.3 K/mm3 (0.0-0.4) 05/25/17 06:04 Baso # 0.0 K/mm3 (0.0-0.1) 05/25/17 06:04 Seg Neutrophils % 57.2 % (40.0-70.0) 05/25/17 06:04 Seg Neutrophils # 5.1 K/mm3 (1.8-7.7) 05/25/17 06:04 Sodium 137 mmol/L (137-145) 05/25/17 06:04 Potassium 3.7 mmol/L (3.6-5.0) 05/25/17 06:04 Chloride 95.0 mmol/L (98-107) L 05/25/17 06:04 Carbon Dioxide 28 mmol/L (22-30) 05/25/17 06:04 Anion Gap 18 mmol/L 05/25/17 06:04 BUN 24 mg/dL (9-20) H 05/25/17 06:04 Creatinine 1.6 mg/dL (0.8-1.5) H 05/25/17 06:04 Estimated GFR 57 ml/min 05/25/17 06:04 BUN/Creatinine Ratio 15 % 05/25/17 06:04 Glucose 118 mg/dL (75-100) H 05/25/17 06:04 Calcium 8.6 mg/dL (8.4-10.2) 05/25/17 06:04 Troponin T 0.024 ng/mL (0.00-0.029) 05/24/17 09:01 NT-Pro-B Natriuret Pep 1856 pg/mL (0-450) H 05/24/17 06:16 Triglycerides 196 mg/dL (2-149) H 05/24/17 02:52 Cholesterol 184 mg/dL (50-199) 05/24/17 02:52 LDL Cholesterol Direct 118 mg/dL (50-130) 05/24/17 02:52 HDL Cholesterol 27 mg/dL (40-59) L 05/24/17 02:52 Cholesterol/HDL Ratio 6.81 % 05/24/17 02:52
[2017-05-26] MEDS: HEPARIN SUB-Q SCH (02:50)
[2017-05-26] MEDS: COZAAR PO SCH (09:14)
[2017-05-26] MEDS: APRESOLINE PO SCH (09:15)
[2017-05-26] MEDS: COREG PO SCH (09:15)
[2017-05-26] MEDS: ALDACTONE PO SCH (09:16)
[2017-05-26] MEDS: ASPIRIN PO SCH (09:17)
[2017-05-26] MEDS: PLAVIX PO SCH (09:17)
[2017-05-26] MEDS: CATAPRES PO SCH (09:17)
[2017-05-26] MEDS: NORVASC PO SCH (09:17)
[2017-05-26 09:20] VITALS: BP 129/92
--- NOTE | 2017-05-26 13:51 | Discharge Summary ---
Providers - Providers Date of Admission: 05/24/17 13:05 Date of discharge: 05/26/17 Attending physician: MASHA FRAUSTO 05/24/17 13:05 Consult to Physician [CONS] Routine Consulting Provider: WERNER DE LA ROSA Reason For Exam: chf Place consult to:: Dr. De La Rosa.Adalgisa Notified:: Office Phone number called:: [phone] Was contact made?: Yes If yes, spoke with:: office sent her a page Primary care physician: TERESA FREY Hospitalization Reason for admission: chf Condition: Stable Hospital course: This is a 46-year-old -[place] male with significant past medical history CHF, diabetes mellitus type 2 and hypertension who presented to the emergency department with complaints of shortness of breath, orthopnea and lower extremity edema for the past 3 weeks. The patient was admitted with acute on chronic CHF exacerbation. Patient received IV diuresis and conservative management. Patient seen by hydrogen power plant manager in consultation. The patient was noted to have medical noncompliance. Unfortunately, however, patient left AMA. Risks of leaving were discussed with the patient. Dedicated discharge time 32 minutes Disposition: DC-07 LEFT AGAINST MED ADVICE Core Measure Documentation - Palliative Care Palliative Care/ Comfort Measures: Not Applicable - Core Measures Any of the following diagnoses?: none Exam - Constitutional Vitals: Temp Pulse Resp BP Pulse Ox 98.4 F 129 H 20 129/92 99 05/26/17 05:47 05/26/17 09:35 05/26/17 05:47 05/26/17 09:17 05/26/17 05:47 General appearance: Present: no acute distress, well-nourished - EENT Eyes: Present: PERRL ENT: hearing intact, clear oral mucosa - Neck Neck: Present: supple, normal ROM - Respiratory Respiratory effort: normal Respiratory: bilateral: CTA - Cardiovascular Heart Sounds: Present: S1 & S2. Absent: rub, click - Extremities Extremities: pulses symmetrical, No edema Peripheral Pulses: within normal limits - Abdominal General gastrointestinal: Present: soft, non-tender, non-distended, normal bowel sounds Male genitourinary: Present: normal - Integumentary Integumentary: Present: clear, warm, dry - Musculoskeletal Musculoskeletal: gait normal, strength equal bilaterally - Psychiatric Psychiatric: appropriate mood/affect, intact judgment & insight - Neurologic Neurologic: CNII-XII intact, moves all extremities Plan Activity: no restrictions Weight Bearing Status: Full Weight Bearing Follow up with: TERESA FREY MD [Primary Care Provider] - 3-5 Days Forms: AMA Form
== END 2017-05-26 09:45 | disposition left against medical advice (07) | DRG 291 ==
LOC: ED 02:15 → 4A 13:05
PROVIDERS: ADMIT Hospitalist; ATTEND Hospitalist
DX: I13.0 Hypertensive heart and chronic kidney disease with heart failure and stage 1 through stage 4 chronic kidney disease, or unspecified chronic kidney disease (principal); J96.01 Acute respiratory failure with hypoxia; I50.43 Acute on chronic combined systolic (congestive) and diastolic (congestive) heart failure; Z68.41 Body mass index [BMI] 40.0-44.9, adult; E66.9 Obesity, unspecified; N28.9 Disorder of kidney and ureter, unspecified; N18.9 Chronic kidney disease, unspecified; I42.0 Dilated cardiomyopathy; E11.22 Type 2 diabetes mellitus with diabetic chronic kidney disease; Z91.14 Patient's other noncompliance with medication regimen; Z79.82 Long term (current) use of aspirin; Z79.899 Other long term (current) drug therapy; Z86.73 Personal history of transient ischemic attack (TIA), and cerebral infarction without residual deficits; Z71.89 Other specified counseling
CPT/HCPCS: 36415; 71046; 80048; 80061; 82962; 83880; 84484; 85025; 93005; 93010; A9270-GY; J1644; J1940

== ENCOUNTER 2017-06-27 12:34 | Emergency (ER) | payer SELFPAY ==
[2017-06-27] MEDS ORDERED: ULTRAM PO ONE (16:19)
[2017-06-27] MEDS ORDERED: LASIX PO ONE (16:19)
--- NOTE | 2017-06-27 16:22 | Emergency Department Report ---
Chief Complaint: Extremity Injury, Lower Time Seen by Provider: 06/27/17 15:58 - HPI History of Present Illness: The patient is a 46-year-old male who presents for evaluation of left lower leg swelling for the past 3 days. He states that his pain and swelling has been worsening from his baseline, and has been constant, pain currently moderate in severity, exacerbated with weightbearing and ambulation, and improved with elevation of the leg. The patient denies trauma to the leg, penetrating wound, redness, bruising, warmth, dyspnea, chest pain. MSE screening note: Focused history and physical exam performed. Due to findings the following was ordered: ED Disposition for MSE Condition: Stable Referrals: TERESA FREY MD [Primary Care Provider] - 3-5 Days
--- NOTE | 2017-06-27 16:32 | Emergency Department Report ---
ED Lower Extremity HPI - General Chief Complaint: Extremity Injury, Lower Time Seen by Provider: 06/27/17 15:58 - History of Present Illness Initial Comments: This is a 46-year-old male nontoxic, well nourished in appearance, no acute signs of distress presents to the ED with c/o of acute on chronic left leg swelling. Patient stated 3 days ago swelling of the leg increased. Patient denies any trauma. Patient statedhe missed a dose of his "water pills" because he ran out. Patient stated that he takes "8 pills" daily and is all out. Patient stated has history of CHF, DM, and HTN. Patient denies any numbness, tingling, pain, redness, erythema, chest pain, shortness of breathe, fever, chills, headache, nausea, or vomiting. Patient denies any allergies. Patient denies any calf pain or tenderness. MD Complaint: leg injury -: days(s) (3) Injury: Leg: Left Severity scale (0 -10): 0 Associated Symptoms: swelling, able to partially bear weight, ambulatory. denies: snap/pop sensation, numbness, tingling, unable to bear weight - Related Data Previous Rx's Medication Instructions Recorded Last Taken Type Aspirin [Aspirin TAB] 325 mg PO QDAY #30 tablet 05/29/16 Unknown Rx Spironolactone [Aldactone] 25 mg PO QDAY #30 tablet 05/29/16 Unknown Rx AtorvaSTATin [Lipitor] 20 mg PO QHS #30 tab 05/07/17 Unknown Rx Carvedilol [Coreg] 25 mg PO BID #60 tablet 05/07/17 Unknown Rx Clopidogrel [Plavix] 75 mg PO QDAY #30 tablet 05/07/17 Unknown Rx Furosemide [Lasix TAB] 40 mg PO BID #60 tablet 05/07/17 Unknown Rx Losartan [Cozaar] 50 mg PO QDAY #30 tablet 05/07/17 Unknown Rx amLODIPine [Norvasc] 5 mg PO DAILY #30 tab 05/07/17 Unknown Rx cloNIDine [Catapres] 0.2 mg PO BID #60 tablet 05/07/17 Unknown Rx hydrALAZINE [Apresoline TAB] 100 mg PO TID #90 tab 05/07/17 Unknown Rx AtorvaSTATin [Lipitor] 20 mg PO QHS #30 tab 06/27/17 Unknown Rx Carvedilol [Coreg] 25 mg PO BID #60 tablet 06/27/17 Unknown Rx Clopidogrel [Plavix] 75 mg PO QDAY #30 tablet 06/27/17 Unknown Rx Furosemide [Lasix TAB] 40 mg PO BID #60 tablet 06/27/17 Unknown Rx Losartan [Cozaar] 50 mg PO QDAY #30 tablet 06/27/17 Unknown Rx amLODIPine [Norvasc] 5 mg PO DAILY #30 tab 06/27/17 Unknown Rx cloNIDine [Catapres] 0.2 mg PO BID #60 tablet 06/27/17 Unknown Rx hydrALAZINE [Apresoline TAB] 100 mg PO TID #90 tab 06/27/17 Unknown Rx Allergies Allergy/AdvReac Type Severity Reaction Status Date / Time No Known Allergies Allergy Verified 08/02/15 11:37 ED Review of Systems ROS: Stated complaint: Other details as noted in HPI Constitutional: denies: chills, fever Eyes: denies: eye pain, eye discharge, vision change ENT: denies: ear pain, throat pain Respiratory: denies: cough, shortness of breath, wheezing Cardiovascular: denies: chest pain, palpitations Endocrine: no symptoms reported Gastrointestinal: denies: abdominal pain, nausea, diarrhea Genitourinary: denies: urgency, dysuria Musculoskeletal: denies: back pain, joint swelling, arthralgia Skin: denies: rash, lesions Neurological: denies: headache, weakness, paresthesias Psychiatric: denies: anxiety, depression Hematological/Lymphatic: denies: easy bleeding, easy bruising ED Past Medical Hx - Past Medical History Hx Hypertension: Yes Hx Heart Attack/AMI: No Hx Congestive Heart Failure: Yes Hx Diabetes: Yes Hx Deep Vein Thrombosis: No Hx Asthma: No Hx COPD: No Hx HIV: No Additional medical history: OBESITY - Surgical History Hx Coronary Stent: No Hx Pacemaker: No Hx Internal Defibrillator: No Additional Surgical History: incision and drainage rectal area. - Social History Smoking Status: Former Smoker - Medications Home Medications: Home Medications Medication Instructions Recorded Confirmed Last Taken Type Aspirin [Aspirin TAB] 325 mg PO QDAY #30 tablet 05/29/16 05/24/17 Unknown Rx Spironolactone [Aldactone] 25 mg PO QDAY #30 tablet 05/29/16 05/24/17 Unknown Rx AtorvaSTATin [Lipitor] 20 mg PO QHS #30 tab 05/07/17 05/24/17 Unknown Rx Carvedilol [Coreg] 25 mg PO BID #60 tablet 05/07/17 05/24/17 Unknown Rx Clopidogrel [Plavix] 75 mg PO QDAY #30 tablet 05/07/17 05/24/17 Unknown Rx Furosemide [Lasix TAB] 40 mg PO BID #60 tablet 05/07/17 05/24/17 Unknown Rx Losartan [Cozaar] 50 mg PO QDAY #30 tablet 05/07/17 05/24/17 Unknown Rx amLODIPine [Norvasc] 5 mg PO DAILY #30 tab 05/07/17 05/24/17 Unknown Rx cloNIDine [Catapres] 0.2 mg PO BID #60 tablet 05/07/17 05/24/17 Unknown Rx hydrALAZINE [Apresoline TAB] 100 mg PO TID #90 tab 05/07/17 05/24/17 Unknown Rx AtorvaSTATin [Lipitor] 20 mg PO QHS #30 tab 06/27/17 Unknown Rx Carvedilol [Coreg] 25 mg PO BID #60 tablet 06/27/17 Unknown Rx Clopidogrel [Plavix] 75 mg PO QDAY #30 tablet 06/27/17 Unknown Rx Furosemide [Lasix TAB] 40 mg PO BID #60 tablet 06/27/17 Unknown Rx Losartan [Cozaar] 50 mg PO QDAY #30 tablet 06/27/17 Unknown Rx amLODIPine [Norvasc] 5 mg PO DAILY #30 tab 06/27/17 Unknown Rx cloNIDine [Catapres] 0.2 mg PO BID #60 tablet 06/27/17 Unknown Rx hydrALAZINE [Apresoline TAB] 100 mg PO TID #90 tab 06/27/17 Unknown Rx ED Physical Exam - General General appearance: alert, in no apparent distress - Head Head exam: Present: atraumatic, normocephalic - Eye Eye exam: Present: normal appearance, PERRL, EOMI Pupils: Present: normal accommodation - ENT ENT exam: Present: normal exam, normal orophraynx, mucous membranes moist, TM's normal bilaterally, normal external ear exam - Neck Neck exam: Present: normal inspection, full ROM. Absent: tenderness, meningismus, lymphadenopathy, thyromegaly - Respiratory Respiratory exam: Present: normal lung sounds bilaterally. Absent: respiratory distress, wheezes, rales, rhonchi, stridor, chest wall tenderness, accessory muscle use, decreased breath sounds, prolonged expiratory - Cardiovascular Cardiovascular Exam: Present: regular rate, normal rhythm, normal heart sounds. Absent: irregular rhythm, systolic murmur, diastolic murmur, rubs, gallop - GI/Abdominal GI/Abdominal exam: Present: soft, normal bowel sounds. Absent: distended, tenderness, guarding, rebound, rigid, diminished bowel sounds - Rectal Rectal exam: Present: deferred - Extremities Exam Extremities exam: Present: normal inspection, full ROM, normal capillary refill , pedal edema. Absent: tenderness, joint swelling, calf tenderness - Expanded Lower Extremity Exam Left Hip exam: Present: normal inspection, full ROM, external rotation, internal rotation, pelvic stability. Absent: tenderness, swelling, abrasion, laceration , ecchymosis, deformity, crepidus, dislocation, erythema, shortening Upper Leg exam: Present: normal inspection, full ROM. Absent: tenderness, swelling, abrasion, laceration, ecchymosis, deformity, crepidus, dislocation, erythema Knee exam: Present: normal inspection, full ROM, full knee extension. Absent: tenderness, swelling, abrasion, laceration, ecchymosis, deformity, crepidus, dislocation, erythema, effusion, pain w/ pronation/supination, posterior draw sign, pain/laxity with valgus, pain/laxity with varus Lower Leg exam: Present: normal inspection, full ROM, swelling. Absent: tenderness, abrasion, laceration, ecchymosis, deformity, crepidus, dislocation, erythema, palpable cord, Priscilla's sign Ankle exam: Present: normal inspection, full ROM, swelling. Absent: tenderness , abrasion, laceration, ecchymosis, deformity, crepidus, dislocation, erythema, anterior draw sign Foot/Toe exam: Present: normal inspection, full ROM, swelling. Absent: tenderness, abrasion, laceration, ecchymosis, deformity, crepidus, dislocation, erythema, amputation, puncture wound, foreign body, calcaneal tenderness, tenderness at base of 5th metatarsal, nail avulsion, subungual hematoma Neuro vascular tendon exam: Present: no vascular compromise. Absent: pulse deficit, abnormal cap refill, motor deficit, sensory deficit, tendon deficit, extremity cold to touch, pallor, abnormal 2-point discrimination, decreased fine /light touch, foot drop, peroneal nerve deficit, significant pain with passive ROM of distal joint Gait: Positive: observed and limited by pain - Back Exam Back exam: Present: normal inspection, full ROM. Absent: tenderness, CVA tenderness (R), CVA tenderness (L), muscle spasm, paraspinal tenderness, vertebral tenderness, rash noted - Neurological Exam Neurological exam: Present: alert, oriented X3, CN II-XII intact, normal gait, reflexes normal - Psychiatric Psychiatric exam: Present: normal affect, normal mood - Skin Skin exam: Present: warm, dry, intact, normal color. Absent: rash ED Course - Reevaluation(s) Reevaluation #1: 06/27/17 16:40 Patient is speaking in full sentences with no signs of distress noted. - Consultations Consultation #1: 06/27/17 16:41 Patient has been consulted with Dr. Myrick about patient history, physical exam, and labs and examined and screened patient and agrees to ED plan of care and discharge plan of care. ED Lower Extremity MDM - Medical Decision Making This is 46-year-old male that presents with left lower leg edema. Patient is stable and was examined by me and Dr. Myrick. Upon exam, there is no signs of cellulitis. No erythema present. No induration or flutance noted. No pain. Not warm to touch. PAtient is out of all his medication so I believe this is related to CHF. Patient is asymptomiac. denies any chest pain, SOB, or wheezing. There is no calf pain or tenderness. Negative doppler ultrasound for DVT/SVT. Vital signs are stable. Patients medications was looked at pervious visit and all 8 medications was printed out for the patient and patient wants all medications refill. Patient was instructed to Follow-up with a primary care doctor in 3-5 days or if symptoms worsen and continue return to emergency room as soon as possible. At time of discharge, the patient does not seem toxic or ill in appearance. No acute signs of distress noted. Patient agrees to discharge treatment plan of care. No further questions noted by the patient. Critical care attestation.: If time is entered above; I have spent that time in minutes in the direct care of this critically ill patient, excluding procedure time. ED Disposition Clinical Impression: Left leg swelling Disposition: DC-01 TO HOME OR SELFCARE Is pt being admited?: No Does the pt Need Aspirin: No Condition: Stable Instructions: Heart Failure (ED) Additional Instructions: Follow-up with a primary care doctor in 3-5 days or if symptoms worsen and continue return to emergency room as soon as possible. Prescriptions: AtorvaSTATin [Lipitor] 20 mg PO QHS #30 tab amLODIPine [Norvasc] 5 mg PO DAILY #30 tab Carvedilol [Coreg] 25 mg PO BID #60 tablet cloNIDine [Catapres] 0.2 mg PO BID #60 tablet Clopidogrel [Plavix] 75 mg PO QDAY #30 tablet Furosemide [Lasix TAB] 40 mg PO BID #60 tablet hydrALAZINE [Apresoline TAB] 100 mg PO TID #90 tab Losartan [Cozaar] 50 mg PO QDAY #30 tablet Referrals: TERESA FREY MD [Primary Care Provider] - 3-5 Days MAGALIS ALFONSO MD [Staff Physician] - [facility] - [facility] Days [facility] [Outside] - 3-[address] [facility] [Outside] - 3-5 Days
[2017-06-27 16:53] LABS: Alanine Aminotransferase 17 units/L (7-56); Albumin 3.8 g/dL (3.9-5); BUN/Creatinine Ratio 13; Blood Urea Nitrogen 19 mg/dL (9-20); Calcium 9.1 mg/dL (8.4-10.2); Hemolysis Index 1
[2017-06-27 16:55] VITALS: BP 148/91
[2017-06-27 17:10] LABS: Basophils % (Auto) 0.5 % (0.0-1.8); Eosinophils # (Auto) 0.2 K/mm3 (0.0-0.4); Eosinophils % (Auto) 2.7 % (0.0-4.3); Hematocrit 40.8 % (35.5-45.6); Hemoglobin 13.2 gm/dl (11.8-15.2); Lymphocytes % (Auto) 26.8 % (13.4-35.0); Mean Corpuscular HGB Conc 32 % (32-34); Mean Corpuscular Hemoglobin 26 pg (28-32); Mean Corpuscular Volume 80 fl (84-94); Monocytes # (Auto) 0.9 K/mm3 (0.0-0.8); Monocytes % (Auto) 11.5 % (0.0-7.3); Platelet Count 206 K/mm3 (140-440); Red Blood Count 5.09 M/mm3 (3.65-5.03); Red Cell Distribution Width 14.8 % (13.2-15.2)
== END 2017-06-27 17:00 | disposition home or self-care (01) ==
LOC: ED 12:34
DX: M79.89 Other specified soft tissue disorders (principal); M79.605 Pain in left leg
CPT/HCPCS: 36415; 80053; 85025

== ENCOUNTER 2018-01-18 13:19 | Emergency (ER) | payer SELFPAY ==
--- NOTE | 2018-01-18 14:49 | Cat Scan Report ---
FINAL REPORT PROCEDURE: CT HEAD/BRAIN WO CON TECHNIQUE: Computerized tomography of the head was performed without contrast material. HISTORY: neuro deficits < 6hrs or sx present upon awakening COMPARISON: No prior studies are available for comparison. FINDINGS: There is no evidence of intracranial hemorrhage. No parenchymal hemorrhage mass lesions are identified. There is decreased density seen laterally anteriorly in the right parietal lobe and also a small patchy area of decreased density posterior aspect right frontal lobe laterally. I cannot exclude subacute ischemic change in these areas given the clinical history. There is no significant mass effect. Brain density otherwise appears normal. Ventricles are normal size and are midline. No abnormal extra-axial fluid collections or masses are seen. Visualized portions of the paranasal sinuses are clear. Mastoid air cells are clear. No evidence of skull fracture. IMPRESSION: Small areas of decreased density seen right frontal and right parietal lobe as described. These are fairly well defined. I cannot exclude subacute ischemic change given the clinical history. Consider MRI of the brain for further characterization.. Critical value: These findings were discussed in detail with Betty Felix RN on 01/18/2018 at 2:43 p.m. [place] standard time
--- NOTE | 2018-01-18 15:13 | Emergency Department Report ---
ED Neuro Deficit HPI - General Chief Complaint: Neuro Symptoms/Deficit Stated Complaint: STROKE SYMPTONS Time Seen by Provider: 01/18/18 15:07 Source: patient Mode of arrival: Ambulatory Limitations: No Limitations - History of Present Illness Initial Comments: Patient is 47 years old male with history of stroke 2 years ago with complete recovery, congestive heart failure, hypertension and diabetes. Patient is also blind in the left eye. Patient presented to the ER stating that he has weakness and numbness to his left upper extremity, left facial droop and difficulty speaking. Patient stated the symptoms started yesterday morning. Patient did not seek any medical attention yesterday. He stated that his symptoms significantly improved since yesterday but he is still having difficulty with speaking. Patient denied any headache, chest pain, abdominal pain, nausea or vomiting. Location: speech, left face, left arm Presenting Symptoms: Present: Weak/Paralyzed One Side, Facial Droop/Numbness, Unable to Speak Clearly History of same: Yes Place: home Associated Symptoms: denies other symptoms - Related Data Home Medications: Previous Rx's Medication Instructions Recorded Last Taken Type Aspirin [Aspirin TAB] 325 mg PO QDAY #30 tablet 05/29/16 Unknown Rx Spironolactone [Aldactone] 25 mg PO QDAY #30 tablet 05/29/16 Unknown Rx AtorvaSTATin [Lipitor] 20 mg PO QHS #30 tab 05/07/17 Unknown Rx Carvedilol [Coreg] 25 mg PO BID #60 tablet 05/07/17 Unknown Rx Clopidogrel [Plavix] 75 mg PO QDAY #30 tablet 05/07/17 Unknown Rx Furosemide [Lasix TAB] 40 mg PO BID #60 tablet 05/07/17 Unknown Rx Losartan [Cozaar] 50 mg PO QDAY #30 tablet 05/07/17 Unknown Rx amLODIPine [Norvasc] 5 mg PO DAILY #30 tab 05/07/17 Unknown Rx cloNIDine [Catapres] 0.2 mg PO BID #60 tablet 05/07/17 Unknown Rx hydrALAZINE [Apresoline TAB] 100 mg PO TID #90 tab 05/07/17 Unknown Rx AtorvaSTATin [Lipitor] 20 mg PO QHS #30 tab 06/27/17 Unknown Rx Carvedilol [Coreg] 25 mg PO BID #60 tablet 06/27/17 Unknown Rx Clopidogrel [Plavix] 75 mg PO QDAY #30 tablet 06/27/17 Unknown Rx Furosemide [Lasix TAB] 40 mg PO BID #60 tablet 06/27/17 Unknown Rx Losartan [Cozaar] 50 mg PO QDAY #30 tablet 06/27/17 Unknown Rx amLODIPine [Norvasc] 5 mg PO DAILY #30 tab 06/27/17 Unknown Rx cloNIDine [Catapres] 0.2 mg PO BID #60 tablet 06/27/17 Unknown Rx hydrALAZINE [Apresoline TAB] 100 mg PO TID #90 tab 06/27/17 Unknown Rx Allergies/Adverse Reactions: Allergies Allergy/AdvReac Type Severity Reaction Status Date / Time No Known Allergies Allergy Verified 08/02/15 11:37 ED Review of Systems ROS: Stated complaint: STROKE SYMPTONS Other details as noted in HPI Comment: All other systems reviewed and negative Constitutional: denies: chills, fever Respiratory: denies: cough, orthopnea, shortness of breath, SOB with exertion Cardiovascular: denies: chest pain, palpitations Gastrointestinal: denies: abdominal pain, nausea, vomiting, diarrhea, constipation, hematemesis Musculoskeletal: denies: back pain Neurological: weakness, numbness. denies: headache, paresthesias, confusion ED Past Medical Hx - Past Medical History Hx Hypertension: Yes Hx Heart Attack/AMI: No Hx Congestive Heart Failure: Yes Hx Diabetes: Yes Hx Deep Vein Thrombosis: No Hx Asthma: No Hx COPD: No Hx HIV: No Additional medical history: OBESITY - Surgical History Hx Coronary Stent: No Hx Pacemaker: No Hx Internal Defibrillator: No Additional Surgical History: incision and drainage rectal area. - Social History Smoking Status: Never Smoker Substance Use Type: None - Medications Home Medications: Home Medications Medication Instructions Recorded Confirmed Last Taken Type Aspirin [Aspirin TAB] 325 mg PO QDAY #30 tablet 05/29/16 05/24/17 Unknown Rx Spironolactone [Aldactone] 25 mg PO QDAY #30 tablet 05/29/16 05/24/17 Unknown Rx AtorvaSTATin [Lipitor] 20 mg PO QHS #30 tab 05/07/17 05/24/17 Unknown Rx Carvedilol [Coreg] 25 mg PO BID #60 tablet 05/07/17 05/24/17 Unknown Rx Clopidogrel [Plavix] 75 mg PO QDAY #30 tablet 05/07/17 05/24/17 Unknown Rx Furosemide [Lasix TAB] 40 mg PO BID #60 tablet 05/07/17 05/24/17 Unknown Rx Losartan [Cozaar] 50 mg PO QDAY #30 tablet 05/07/17 05/24/17 Unknown Rx amLODIPine [Norvasc] 5 mg PO DAILY #30 tab 05/07/17 05/24/17 Unknown Rx cloNIDine [Catapres] 0.2 mg PO BID #60 tablet 05/07/17 05/24/17 Unknown Rx hydrALAZINE [Apresoline TAB] 100 mg PO TID #90 tab 05/07/17 05/24/17 Unknown Rx AtorvaSTATin [Lipitor] 20 mg PO QHS #30 tab 06/27/17 Unknown Rx Carvedilol [Coreg] 25 mg PO BID #60 tablet 06/27/17 Unknown Rx Clopidogrel [Plavix] 75 mg PO QDAY #30 tablet 06/27/17 Unknown Rx Furosemide [Lasix TAB] 40 mg PO BID #60 tablet 06/27/17 Unknown Rx Losartan [Cozaar] 50 mg PO QDAY #30 tablet 06/27/17 Unknown Rx amLODIPine [Norvasc] 5 mg PO DAILY #30 tab 06/27/17 Unknown Rx cloNIDine [Catapres] 0.2 mg PO BID #60 tablet 06/27/17 Unknown Rx hydrALAZINE [Apresoline TAB] 100 mg PO TID #90 tab 06/27/17 Unknown Rx ED Neuro Physical Exam - General Limitations: No Limitations General appearance: alert, in no apparent distress Suspected Stroke: Yes - Head Head exam: Present: atraumatic, normocephalic, normal inspection - Eye Eye exam: Present: normal appearance, PERRL - ENT ENT exam: Present: normal exam, normal orophraynx, mucous membranes moist - Neck Neck exam: Present: normal inspection, full ROM. Absent: tenderness, meningismus, lymphadenopathy, thyromegaly - Respiratory Respiratory exam: Present: normal lung sounds bilaterally - Cardiovascular Cardiovascular Exam: Present: regular rate, normal rhythm, normal heart sounds - GI/Abdominal GI/Abdominal exam: Present: soft, normal bowel sounds. Absent: distended, tenderness, guarding, rebound, rigid - Extremities Exam Extremities exam: Present: normal inspection, full ROM, normal capillary refill. Absent: calf tenderness - Back Exam Back exam: Present: normal inspection, full ROM. Absent: tenderness, CVA tenderness (R), CVA tenderness (L), muscle spasm, paraspinal tenderness, vertebral tenderness - Neurological Exam Neurological exam: Present: alert, oriented X3, CN II-XII intact, normal gait, reflexes normal - NIHSS Assessment Interval: 24 hours post onset of symptoms +-20 minutes 1a. Level of Consciousness: alert/keenly responsive 1b. LOC Questions: answers both correctly 1c. LOC Commands: performs tasks correctly 2. Best Gaze: normal 3. Visual: no visual loss 4. Facial Palsy: normal symmetrical movement 5b. Motor Arm Right: no drift 5a. Motor Arm Left: no drift 6a. Motor Leg Left: no drift 6b. Motor Leg Right: no drift 7. Limb Ataxia: absent 8. Sensory: normal 9. Best Language: mild/moderate aphasia 10. Dysarthria: mild/moderate dysarthria 11. Extinction/Inattention: no abnormality Total Score: 2 Stroke Severity: Minor Stroke - Psychiatric Psychiatric exam: Present: normal affect - Skin Skin exam: Present: warm, intact, normal color ED Course Vital Signs 01/18/18 01/18/18 01/18/18 13:30 14:56 15:00 Temperature 97.7 F Pulse Rate 64 73 70 Respiratory 16 14 17 Rate Blood Pressure 141/86 139/91 O2 Sat by Pulse 97 Oximetry 01/18/18 01/18/18 01/18/18 15:02 15:16 15:30 Temperature Pulse Rate 69 65 Respiratory 17 21 15 Rate Blood Pressure 139/91 139/91 O2 Sat by Pulse Oximetry 01/18/18 01/18/18 01/18/18 15:46 16:00 16:30 Temperature Pulse Rate 63 61 67 Respiratory 15 15 22 Rate Blood Pressure 139/91 136/83 136/83 O2 Sat by Pulse Oximetry 01/18/18 01/18/18 01/18/18 17:03 18:43 19:01 Temperature Pulse Rate Respiratory Rate Blood Pressure 151/94 139/77 O2 Sat by Pulse 98 Oximetry - Lab Data Result diagrams: 01/18/18 16:59 01/18/18 16:59 Lab Results 01/18/18 01/18/18 01/18/18 Range/Units 13:39 16:59 16:59 WBC 9.8 (4.5-11.0) K/mm3 RBC 4.67 (3.65-5.03) M/mm3 Hgb 13.2 (11.8-15.2) gm/dl Hct 39.6 (35.5-45.6) % MCV 85 (84-94) fl MCH 28 (28-32) pg MCHC 33 (32-34) % RDW 14.4 (13.2-15.2) % Plt Count 172 (140-440) K/mm3 Lymph % (Auto) 30.4 (13.4-35.0) % Mora % (Auto) 9.8 H (0.0-7.3) % Eos % (Auto) 2.6 (0.0-4.3) % Baso % (Auto) 0.4 (0.0-1.8) % Lymph # 3.0 (1.2-5.4) K/mm3 Mora # 1.0 H (0.0-0.8) K/mm3 Eos # 0.3 (0.0-0.4) K/mm3 Baso # 0.0 (0.0-0.1) K/mm3 Seg Neutrophils % 56.8 (40.0-70.0) % Seg Neutrophils # 5.6 (1.8-7.7) K/mm3 PT 16.1 H (12.2-14.9) Sec. INR 1.24 H (0.87-1.13) APTT 28.7 (24.2-36.6) Sec. Thrombin Time (15.1-19.6) Sec. Sodium (137-145) mmol/L Potassium (3.6-5.0) mmol/L Chloride (98-107) mmol/L Carbon Dioxide (22-30) mmol/L Anion Gap mmol/L BUN (9-20) mg/dL Creatinine (0.8-1.5) mg/dL Estimated GFR ml/min BUN/Creatinine Ratio % Glucose (75-100) mg/dL POC Glucose 125 H (70-105) Calcium (8.4-10.2) mg/dL Troponin T (0.00-0.029) ng/mL Triglycerides (2-149) mg/dL Cholesterol (50-199) mg/dL LDL Cholesterol Direct (50-130) mg/dL HDL Cholesterol (40-59) mg/dL Cholesterol/HDL Ratio % 01/18/18 01/18/18 Range/Units 16:59 16:59 WBC (4.5-11.0) K/mm3 RBC (3.65-5.03) M/mm3 Hgb (11.8-15.2) gm/dl Hct (35.5-45.6) % MCV (84-94) fl MCH (28-32) pg MCHC (32-34) % RDW (13.2-15.2) % Plt Count (140-440) K/mm3 Lymph % (Auto) (13.4-35.0) % Mora % (Auto) (0.0-7.3) % Eos % (Auto) (0.0-4.3) % Baso % (Auto) (0.0-1.8) % Lymph # (1.2-5.4) K/mm3 Mora # (0.0-0.8) K/mm3 Eos # (0.0-0.4) K/mm3 Baso # (0.0-0.1) K/mm3 Seg Neutrophils % (40.0-70.0) % Seg Neutrophils # (1.8-7.7) K/mm3 PT (12.2-14.9) Sec. INR (0.87-1.13) APTT (24.2-36.6) Sec. Thrombin Time 16.6 (15.1-19.6) Sec. Sodium 142 (137-145) mmol/L Potassium 3.3 L (3.6-5.0) mmol/L Chloride 100.5 (98-107) mmol/L Carbon Dioxide 29 (22-30) mmol/L Anion Gap 16 mmol/L BUN 20 (9-20) mg/dL Creatinine 1.7 H (0.8-1.5) mg/dL Estimated GFR 53 ml/min BUN/Creatinine Ratio 12 % Glucose 105 H (75-100) mg/dL POC Glucose (70-105) Calcium 9.0 (8.4-10.2) mg/dL Troponin T 0.037 H (0.00-0.029) ng/mL Triglycerides 168 H (2-149) mg/dL Cholesterol 174 (50-199) mg/dL LDL Cholesterol Direct 128 (50-130) mg/dL HDL Cholesterol 25 L (40-59) mg/dL Cholesterol/HDL Ratio 6.96 % - Radiology Data Radiology results: report reviewed Acute ischemic changes in the right frontal and right parietal region on CT brain. - Medical Decision Making Patient is 47 years old male with history of stroke 2 years ago with complete recovery, congestive heart failure, hypertension and diabetes. Patient is also blind in the left eye. Patient presented to the ER stating that he has weakness and numbness to his left upper extremity, left facial droop and difficulty speaking. Patient stated the symptoms started yesterday morning. Patient did not seek any medical attention yesterday. He stated that his symptoms significantly improved since yesterday but he is still having difficulty with speaking. Patient denied any headache, chest pain, abdominal pain, nausea or vomiting. Acute ischemic changes in the right frontal and right parietal region on CT brain. Patient remained stable through the ER course. I discussed the patient with Dr. Li, he agreed to admit the patient to medical service. Critical Care Time: Yes Critical care time in (mins) excluding proc time.: 30 Critical care attestation.: If time is entered above; I have spent that time in minutes in the direct care of this critically ill patient, excluding procedure time. ED Disposition Clinical Impression: CVA (cerebral vascular accident) Disposition: DC-09 OP ADMIT IP TO THIS HOSP Is pt being admited?: Yes Condition: Stable Referrals: PRIMARY CARE,MD [Primary Care Provider] - 3-5 Days
[2018-01-18 17:36] LABS: Basophils % (Auto) 0.4 % (0.0-1.8); Eosinophils # (Auto) 0.3 K/mm3 (0.0-0.4); Eosinophils % (Auto) 2.6 % (0.0-4.3); Hematocrit 39.6 % (35.5-45.6); Hemoglobin 13.2 gm/dl (11.8-15.2); Lymphocytes % (Auto) 30.4 % (13.4-35.0); Mean Corpuscular HGB Conc 33 % (32-34); Mean Corpuscular Hemoglobin 28 pg (28-32); Mean Corpuscular Volume 85 fl (84-94); Monocytes % (Auto) 9.8 % (0.0-7.3); Platelet Count 172 K/mm3 (140-440); Red Blood Count 4.67 M/mm3 (3.65-5.03); Red Cell Distribution Width 14.4 % (13.2-15.2)
[2018-01-18 17:48] LABS: INR 1.24 (0.87-1.13)
[2018-01-18 17:49] LABS: Partial Thromboplastin Time 28.7 Sec. (24.2-36.6)
[2018-01-18 18:08] LABS: Chol/HDL Ratio 6.96 %
--- NOTE | 2018-01-18 20:08 | Consultation ---
History of Present Illness - Reason for Consult Consult date: 01/18/18 Requesting physician: GIL SAMPSON - History of Present Illness 47 YO Male with Medication Noncompliance, CHF, HTN, DM,Obesity presents to ED for evaluation of Left hand weakness, and slurred speech 2 days ago which lasted around 30 minutes, and subsequently resolved. Pt seen and evaluated in ED and found to be outside therapeutic window for TPA. Pt denies symptoms at time of my evaluation. Pt acknowledges medication noncompliance and would like a refill on his prescriptions- which was the reason for his visit. Pt restarted on DAPT and counseled regarding risk factor reduction. Pt medically optimzied and discharged home. Pt passed bedside swallow evaluation, and does not exhibit any focal neurologic deficit. Pt medially optimized, and discharged home and instructed to f/u with PCP within 3-5 days with blood pressure and blood glucose log. Pt also instructed to F/U with Cardiology within 1 wk for further care and evaluation. Pt to f/u with neurology PRN. Past History Past Medical History: diabetes, heart failure, hypertension, other (Obesity, noncompliance) Past Surgical History: Other (I&D rectal abscess) Social history: , lives with family. denies: smoking, alcohol abuse, prescription drug abuse Family history: diabetes, hypertension Medications and Allergies Allergies Allergy/AdvReac Type Severity Reaction Status Date / Time No Known Allergies Allergy Verified 08/02/15 11:37 Home Medications Medication Instructions Recorded Confirmed Last Taken Type Spironolactone [Aldactone] 25 mg PO QDAY #30 tablet 05/29/16 01/18/18 Unknown Rx Carvedilol [Coreg] 25 mg PO BID #60 tablet 05/07/17 01/18/18 Unknown Rx Furosemide [Lasix TAB] 40 mg PO BID #60 tablet 05/07/17 01/18/18 Unknown Rx Losartan [Cozaar] 50 mg PO QDAY #30 tablet 05/07/17 01/18/18 Unknown Rx cloNIDine [Catapres] 0.2 mg PO BID #60 tablet 05/07/17 01/18/18 Unknown Rx hydrALAZINE [Apresoline TAB] 100 mg PO TID #90 tab 05/07/17 01/18/18 Unknown Rx AtorvaSTATin [Lipitor] 20 mg PO QHS #30 tab 01/18/18 Unknown Rx Clopidogrel [Plavix] 75 mg PO QDAY #30 tablet 01/18/18 Unknown Rx amLODIPine [Norvasc] 5 mg PO DAILY #30 tab 01/18/18 Unknown Rx Review of Systems Constitutional: no weight loss, no weight gain, no fever, no chills Ears, nose, mouth and throat: no ear pain, no ear discharge, no tinnitis, no decreased hearing, no nose pain, no nasal congestion Cardiovascular: no chest pain, no orthopnea, no palpitations, no lightheadedness , no shortness of breath, no dyspnea on exertion, no paroxysmal nocturnal dyspnea, no phlebitis, no high blood pressure, no leg edema Respiratory: no cough, no cough with sputum, no excessive sputum, no hemoptysis , no shortness of breath, no dyspnea on exertion Gastrointestinal: no nausea, no vomiting, no diarrhea, no constipation, no change in bowel habits, no hematemesis Genitourinary Male: no hematuria, no flank pain, no discharge, no urinary frequency, no urinary hesitancy, no nocturia, no incontinence Rectal: no pain, no incontinence, no bleeding Musculoskeletal: no neck stiffness, no neck pain, no shooting arm pain, no low back pain, no shooting leg pain, no leg numbness/tingling, no muscle cramps, no myalgias, no atrophy Integumentary: no rash, no pruritis, no redness, no sores, no wounds, no blisters, no darkening of skin, no depigmentation Neurological: weakness, change in speech, no head injury, no seizures, no syncope, no tremors, no ataxia, no vertigo, no headaches, no convulsions, no confusion, no memory loss, no changes in smell/taste, no gait dysfunction, no double vision, no loss of vision Psychiatric: no anxiety, no memory loss, no change in sleep habits, no sleep disturbances, no insomnia, no hypersomnia, no change in appetite, no change in libido, no suicidal ideation, no disorientation Endocrine: no cold intolerance, no heat intolerance, no polyphagia, no excessive thirst, no polydipsia, no nocturia Hematologic/Lymphatic: no easy bruising, no easy bleeding, no lymphadenopathy Allergic/Immunologic: no urticaria, no allergic rhinitis, no wheezing, no persistent infections, no anaphylaxis, no angioedema Exam - Constitutional Vitals: Temp Pulse Resp BP Pulse Ox 97.7 F 73 20 149/84 98 01/18/18 13:30 01/18/18 19:00 01/18/18 19:00 01/18/18 19:31 01/18/18 19:00 General appearance: Present: no acute distress, well-nourished - EENT Eyes: Present: PERRL ENT: hearing intact, clear oral mucosa - Neck Neck: Present: supple, normal ROM - Respiratory Respiratory effort: normal Respiratory: bilateral: CTA - Cardiovascular Heart Sounds: Present: S1 & S2. Absent: rub, click - Extremities Extremities: pulses symmetrical, No edema Peripheral Pulses: within normal limits - Abdominal General gastrointestinal: Present: soft, non-tender, non-distended, normal bowel sounds Male genitourinary: Present: normal - Integumentary Integumentary: Present: clear, warm, dry - Musculoskeletal Musculoskeletal: gait normal, strength equal bilaterally - Psychiatric Psychiatric: appropriate mood/affect, intact judgment & insight - Neurologic Neurologic: CNII-XII intact, moves all extremities Results - Labs CBC & Chem 7: 01/18/18 16:59 01/18/18 16:59 Labs: Abnormal lab results 01/18/18 01/18/18 01/18/18 Range/Units 13:39 16:59 16:59 [place] % (Auto) 9.8 H (0.0-7.3) % [place] # 1.0 H (0.0-0.8) K/mm3 PT 16.1 H (12.2-14.9) Sec. INR 1.24 H (0.87-1.13) Potassium (3.6-5.0) mmol/L Creatinine (0.8-1.5) mg/dL Glucose (75-100) mg/dL POC Glucose 125 H (70-105) Troponin T (0.00-0.029) ng/mL Triglycerides (2-149) mg/dL HDL Cholesterol (40-59) mg/dL 01/18/18 Range/Units 16:59 [place] % (Auto) (0.0-7.3) % [place] # (0.0-0.8) K/mm3 PT (12.2-14.9) Sec. INR (0.87-1.13) Potassium 3.3 L (3.6-5.0) mmol/L Creatinine 1.7 H (0.8-1.5) mg/dL Glucose 105 H (75-100) mg/dL POC Glucose (70-105) Troponin T 0.037 H (0.00-0.029) ng/mL Triglycerides 168 H (2-149) mg/dL HDL Cholesterol 25 L (40-59) mg/dL Assessment and Plan - Patient Problems (1) TIA (transient ischemic attack) Current Visit: Yes Status: Acute Plan to address problem: Resume DAPT, Pt counseled regarding risk factor reduction. Resume prehospital medication.
[2018-01-18] MEDS ORDERED: ASPIRIN PO ONE (20:11)
[2018-01-18] MEDS ORDERED: PLAVIX PO ONE (20:11)
[2018-01-18 22:30] VITALS: BP 132/76
== END 2018-01-18 21:30 | disposition admitted as inpatient to this hospital (09) ==
LOC: ED 13:19
DX: I63.9 Cerebral infarction, unspecified (principal); I11.0 Hypertensive heart disease with heart failure; I50.9 Heart failure, unspecified; E11.9 Type 2 diabetes mellitus without complications; Z79.899 Other long term (current) drug therapy
CPT/HCPCS: 36415; 70450; 80048; 80061; 82962; 84484; 85025; 85610; 85670; 85730; 93005; 93010

== ENCOUNTER 2018-04-30 14:01 | Inpatient (IN) | payer MEDICAID ==
[2018-04-30 14:58] LABS: Hematocrit 38.6 % (35.5-45.6); Hemoglobin 12.5 gm/dl (11.8-15.2); Mean Corpuscular HGB Conc 32 % (32-34); Mean Corpuscular Volume 83 fl (84-94); Platelet Count 198 K/mm3 (140-440); Red Blood Count 4.63 M/mm3 (3.65-5.03); Red Cell Distribution Width 15.6 % (13.2-15.2)
[2018-04-30] MEDS ORDERED: BABY ASPIRIN PO ONE (15:13)
[2018-04-30] MEDS ORDERED: NITRO-BID 2% TP ONE (15:13)
[2018-04-30 15:15] LABS: Albumin 3.7 g/dL (3.9-5); Calcium 8.8 mg/dL (8.4-10.2)
--- NOTE | 2018-04-30 15:19 | Emergency Department Report ---
Chief Complaint: Dyspnea/Respdistress Stated Complaint: SOB Time Seen by Provider: 04/30/18 14:37 - HPI History of Present Illness: 47 YO AA MALE TO ER WITH SOB BECAUSE HE HAS BEEN OUT OF HIS MEDS FOR OVER A WEEK. NO FEVER CO PRODUCTIVE COUGH SWELLING IN LEGS BLOATING OF ABDOMEN EXTENSIVE PMH A/C HF CKD BASELINE CR 1.7 MED NONADHERENCE SEE EMR DISCUSSED WITH DR CHAMBERS PT TO MAIN ED REPORT TO DR BORRERO - Exam Vital Signs: Vital Signs 04/30/18 04/30/18 14:07 14:30 Temperature 98.1 F 98.0 F Pulse Rate 77 115 H Respiratory 20 20 Rate Blood Pressure 161/116 162/86 O2 Sat by Pulse 92 100 Oximetry MSE screening note: Focused history and physical exam performed. Due to findings the following was ordered: ED Medical Decision Making - Lab Data Result diagrams: 04/30/18 14:36 04/30/18 14:36 ED Disposition for MSE Condition: Stable Referrals: CHERIE DORANTES MD [Primary Care Provider] - 3-5 Days
--- NOTE | 2018-04-30 15:54 | XRay Report ---
FINAL REPORT EXAM: XR CHEST ROUTINE 2V HISTORY: SOB COMPARISON: Chest radiograph performed on 05/24/2017 TECHNIQUE: Frontal and lateral views of the chest FINDINGS: Stable marked cardiomegaly. Mild interstitial thickening. No focal consolidation. No pleural effusion or pneumothorax. No acute bony or soft tissue abnormality. IMPRESSION: Stable marked cardiomegaly. Recommend correlation with echocardiogram if not already performed. Mild interstitial thickening, that may represent interstitial edema.
[2018-04-30 16:05] LABS: Chol/HDL Ratio 5.33 %
--- NOTE | 2018-04-30 16:22 | Emergency Department Report ---
ED Shortness of Breath HPI - General Chief Complaint: Dyspnea/Respdistress Stated Complaint: SOB Time Seen by Provider: 04/30/18 14:37 Source: patient Mode of arrival: Ambulatory Limitations: No Limitations - History of Present Illness Initial Comments: Mr. Power is a very pleasant 47-year-old male with a history of systolic/diastolic congestive heart failure, nonischemic cardiomyopathy, diabetes mellitus, CVA and hypertension who presents with shortness of breath for past one week. +Severe shortness of breath with exertion. Has been without his medications last week. He doesn't have a PCP. However he is followed at [facility] on [facility]. He denies any chest pain or abdominal pain. Denies any headache. However is unable to walk 3 steps without shortness of breath. He has PND. He has abdominal swelling. He has chronic leg swelling. According to EMR, echocardiogram 2016 revealed EF 20-25%. MD Complaint: shortness of breath -: week(s) (1) Severity: moderate Worsens With: exertion Known History Of: congestive heart failure Treatments Prior to Arrival: none - Related Data Previous Rx's Medication Instructions Recorded Last Taken Type Spironolactone [Aldactone] 25 mg PO QDAY #30 tablet 05/29/16 Unknown Rx Carvedilol [Coreg] 25 mg PO BID #60 tablet 05/07/17 Unknown Rx Furosemide [Lasix TAB] 40 mg PO BID #60 tablet 05/07/17 Unknown Rx Losartan [Cozaar] 50 mg PO QDAY #30 tablet 05/07/17 Unknown Rx cloNIDine [Catapres] 0.2 mg PO BID #60 tablet 05/07/17 Unknown Rx hydrALAZINE [Apresoline TAB] 100 mg PO TID #90 tab 05/07/17 Unknown Rx AtorvaSTATin [Lipitor] 20 mg PO QHS #30 tab 01/18/18 Unknown Rx Clopidogrel [Plavix] 75 mg PO QDAY #30 tablet 01/18/18 Unknown Rx amLODIPine [Norvasc] 5 mg PO DAILY #30 tab 01/18/18 Unknown Rx Allergies Allergy/AdvReac Type Severity Reaction Status Date / Time No Known Allergies Allergy Verified 08/02/15 11:37 ED Review of Systems ROS: Stated complaint: SOB Other details as noted in HPI Comment: All other systems reviewed and negative Constitutional: malaise. denies: fever Cardiovascular: dyspnea on exertion, orthopnea, edema, paroxysmal nocturnal dyspnea. denies: chest pain Gastrointestinal: denies: abdominal pain ED Past Medical Hx - Past Medical History Previous Medical History?: Yes Hx Hypertension: Yes Hx Heart Attack/AMI: No Hx Congestive Heart Failure: Yes Hx Diabetes: Yes Hx Deep Vein Thrombosis: No Hx Asthma: No Hx COPD: No Hx HIV: No Additional medical history: OBESITY - Surgical History Past Surgical History?: Yes Hx Coronary Stent: No Hx Pacemaker: No Hx Internal Defibrillator: No Additional Surgical History: incision and drainage rectal area. - Family History Family history: CAD/CT (sudden mother and grandmother mother in her 40's, grandmother in her 50's) - Social History Smoking Status: Never Smoker Substance Use Type: None - Medications Home Medications: Home Medications Medication Instructions Recorded Confirmed Last Taken Type Spironolactone [Aldactone] 25 mg PO QDAY #30 tablet 05/29/16 01/18/18 Unknown Rx Carvedilol [Coreg] 25 mg PO BID #60 tablet 05/07/17 01/18/18 Unknown Rx Furosemide [Lasix TAB] 40 mg PO BID #60 tablet 05/07/17 01/18/18 Unknown Rx Losartan [Cozaar] 50 mg PO QDAY #30 tablet 05/07/17 01/18/18 Unknown Rx cloNIDine [Catapres] 0.2 mg PO BID #60 tablet 05/07/17 01/18/18 Unknown Rx hydrALAZINE [Apresoline TAB] 100 mg PO TID #90 tab 05/07/17 01/18/18 Unknown Rx AtorvaSTATin [Lipitor] 20 mg PO QHS #30 tab 01/18/18 Unknown Rx Clopidogrel [Plavix] 75 mg PO QDAY #30 tablet 01/18/18 Unknown Rx amLODIPine [Norvasc] 5 mg PO DAILY #30 tab 01/18/18 Unknown Rx ED Physical Exam - General Limitations: No Limitations General appearance: alert, in no apparent distress - Head Head exam: Present: atraumatic, normocephalic - Eye Eye exam: Present: normal appearance - ENT ENT exam: Present: mucous membranes moist - Neck Neck exam: Present: normal inspection, full ROM. Absent: tenderness, meningismus - Respiratory Respiratory exam: Present: respiratory distress (after exertion), rales, decreased breath sounds. Absent: wheezes, rhonchi, accessory muscle use - Cardiovascular Cardiovascular Exam: Present: regular rate, normal rhythm, rubs - GI/Abdominal GI/Abdominal exam: Present: soft, distended. Absent: tenderness, guarding, rebound - Rectal Rectal exam: Present: deferred - Extremities Exam Extremities exam: Present: pedal edema, other (tense edema lower extremities) - Neurological Exam Neurological exam: Present: alert, oriented X3 - Psychiatric Psychiatric exam: Present: normal affect, normal mood - Skin Skin exam: Present: warm, dry, intact, normal color. Absent: rash ED Course Vital Signs 04/30/18 04/30/18 04/30/18 14:07 14:30 15:33 Temperature 98.1 F 98.0 F Pulse Rate 77 115 H 75 Respiratory 20 20 14 Rate Blood Pressure 161/116 162/86 O2 Sat by Pulse 92 100 98 Oximetry ED Medical Decision Making - Lab Data Result diagrams: 04/30/18 14:36 04/30/18 14:36 Laboratory Results - last 24 hr 04/30/18 04/30/18 14:36 14:36 WBC 9.6 RBC 4.63 Hgb 12.5 Hct 38.6 MCV 83 L MCH 27 L MCHC 32 RDW 15.6 H Plt Count 198 Sodium 137 Potassium 3.7 Chloride 99.6 Carbon Dioxide 25 Anion Gap 16 BUN 33 H Creatinine 2.2 H Estimated GFR 39 BUN/Creatinine Ratio 15 Glucose 110 H Calcium 8.8 Total Bilirubin 0.60 AST 36 ALT 47 Alkaline Phosphatase 50 Troponin T 0.049 H NT-Pro-B Natriuret Pep 1035 H Total Protein 6.9 Albumin 3.7 L Albumin/Globulin Ratio 1.2 Triglycerides 152 H Cholesterol 144 LDL Cholesterol Direct 104 HDL Cholesterol 27 L Cholesterol/HDL Ratio 5.33 - EKG Data 04/30/18 16:24 Time Obtained 14:17 Normal sinus rhythm rate 70 bpm normal axis prolonged SC interval positive LVH no significant ST elevation nonspecific T wave pattern prolonged QT interval - Radiology Data Radiology results: report reviewed, image reviewed Severe cardiomegaly with interstitial edema - Medical Decision Making Ms. Powre presents with severe dyspnea on exertion. With ambulation oxygen saturation decreases to 88%. Patient is unable to walk. Steps without severe shortness of breath. He also had shortness of breath when speaking at rest. Labs reviewed with equivocal troponin level, positive elevated BNP. +acute on chronic kidney injury . Mr. Power would need gentle monitor diuresis. I highly appreciate the assistance of hospitalist Dr. Ladd who readily agreed to admit the patient for acute CHF exacerbation to remote telemetry. Critical care attestation.: If time is entered above; I have spent that time in minutes in the direct care of this critically ill patient, excluding procedure time. ED Disposition Clinical Impression: Acute systolic CHF (congestive heart failure), Acute combined systolic and diastolic congestive heart failure, Acute kidney injury superimposed on CKD Disposition: OP ADMIT IP TO THIS HOSP Is pt being admited?: Yes Does the pt Need Aspirin: No Condition: Stable Referrals: CHERIE DORANTES MD [Primary Care Provider] - 3-5 Days
[2018-04-30] MEDS ORDERED: LASIX IV ONE (16:29)
[2018-04-30 17:33] LABS: Bilirubin,Urine NEG (Negative); Blood,Urine NEG (Negative); Color,Urine Straw (Yellow); Protein,Urine <15 mg/dL mg/dL (Negative); Urobilinogen,Urine < 2.0 mg/dL (<2.0)
[2018-04-30 17:39] LABS: RBC,Urine < 1.0 /HPF (0.0-6.0)
--- NOTE | 2018-04-30 18:05 | History and Physical Report ---
History of Present Illness Date of examination: 04/30/18 Date of admission: 04/30/18 16:11 Chief complaint: Shortness of breath for 1 week History of present illness: 47-year-old -[place] male with history of CHF, hypertension, hyperlipidemia and coronary artery disease comes in for increasing shortness of breath of one-week duration. Patient has been getting short of breath on walking about 50 yards and also on lying down. No diaphoresis or palpitations. No chest pain. Patient has not been taking his medications for the last 1 week. Exacerbating factors noncompliance. Relieving factors is taking medications regularly. No fever or chills. No paroxysmal nocturnal dyspnea. Patient has class IV NYHA symptoms. Patient apparently had an echocardiogram in 2016 and the ejection fraction was around 20-25%. Past Medical History Previous Medical History?: Yes Hypertension: Yes Congestive Heart Failure: Yes Diabetes: Yes Additional medical history: OBESITY Surgical History Past Surgical History?: Yes Additional Surgical History: incision and drainage rectal area. Family History Family history: CAD/AK (sudden mother and grandmother mother in her 40's, grandmother in her 50's) Social History Smoking Status: Never Smoker Substance Use Type: None On 08 and in the Medications Home Medications: Home Medications Medication Instructions Recorded Confirmed Last Taken Type Spironolactone [Aldactone] 25 mg PO QDAY #30 tablet 05/29/16 01/18/18 Unknown Rx Carvedilol [Coreg] 25 mg PO BID #60 tablet 05/07/17 01/18/18 Unknown Rx Furosemide [Lasix TAB] 40 mg PO BID #60 tablet 05/07/17 01/18/18 Unknown Rx Losartan [Cozaar] 50 mg PO QDAY #30 tablet 05/07/17 01/18/18 Unknown Rx cloNIDine [Catapres] 0.2 mg PO BID #60 tablet 05/07/17 01/18/18 Unknown Rx hydrALAZINE [Apresoline TAB] 100 mg PO TID #90 tab 05/07/17 01/18/18 Unknown Rx AtorvaSTATin [Lipitor] 20 mg PO QHS #30 tab 01/18/18 Unknown Rx Clopidogrel [Plavix] 75 mg PO QDAY #30 tablet 01/18/18 Unknown Rx amLODIPine [Norvasc] 5 mg PO DAILY #30 tab 01/18/18 Unknown Rx Review of Systems ROS: Stated complaint: SOB Other details as noted in HPI Comment: All other systems reviewed and negative Constitutional: malaise. denies: fever Cardiovascular: dyspnea on exertion, orthopnea, edema, denies: chest pain Gastrointestinal: denies: abdominal pain Medications and Allergies Allergies Allergy/AdvReac Type Severity Reaction Status Date / Time No Known Allergies Allergy Verified 08/02/15 11:37 Home Medications Medication Instructions Recorded Confirmed Last Taken Type Spironolactone [Aldactone] 25 mg PO QDAY #30 tablet 05/29/16 04/30/18 1 Week Ago Rx ~04/23/18 Carvedilol [Coreg] 25 mg PO BID #60 tablet 05/07/17 04/30/18 1 Week Ago Rx ~04/23/18 Furosemide [Lasix TAB] 40 mg PO BID #60 tablet 05/07/17 04/30/18 1 Week Ago Rx ~04/23/18 Losartan [Cozaar] 50 mg PO QDAY #30 tablet 05/07/17 04/30/18 1 Week Ago Rx ~04/23/18 cloNIDine [Catapres] 0.2 mg PO BID #60 tablet 05/07/17 04/30/18 1 Week Ago Rx ~04/23/18 hydrALAZINE [Apresoline TAB] 100 mg PO TID #90 tab 05/07/17 04/30/18 1 Week Ago Rx ~04/23/18 AtorvaSTATin [Lipitor] 20 mg PO QHS #30 tab 01/18/18 04/30/18 1 Week Ago Rx ~04/23/18 Clopidogrel [Plavix] 75 mg PO QDAY #30 tablet 01/18/18 04/30/18 1 Week Ago Rx ~04/23/18 amLODIPine [Norvasc] 5 mg PO DAILY #30 tab 01/18/18 04/30/18 1 Week Ago Rx ~04/23/18 Review of Systems All systems: negative Cardiovascular: orthopnea, shortness of breath, dyspnea on exertion Respiratory: dyspnea on exertion Exam - Physical Exam Narrative exam: Lying in bed in mild distress - Constitutional Vitals: Temp Pulse Resp BP Pulse Ox 98.0 F 75 14 162/86 98 04/30/18 14:30 04/30/18 15:33 04/30/18 15:33 04/30/18 14:30 04/30/18 15:33 General appearance: Present: no acute distress, mild distress, well-nourished - EENT Eyes: Present: PERRL ENT: hearing intact, clear oral mucosa - Neck Neck: Present: supple, normal ROM - Respiratory Respiratory effort: normal Respiratory: bilateral: CTA - Cardiovascular Rhythm: regular Heart Sounds: Present: S1 & S2. Absent: rub, click - Extremities Extremities: pulses symmetrical, No edema Peripheral Pulses: within normal limits - Abdominal General gastrointestinal: Present: soft, non-tender, non-distended, normal bowel sounds Male genitourinary: Present: normal - Integumentary Integumentary: Present: clear, warm, dry - Musculoskeletal Musculoskeletal: gait normal, strength equal bilaterally - Psychiatric Psychiatric: appropriate mood/affect, intact judgment & insight - Neurologic Neurologic: CNII-XII intact, moves all extremities Results - Labs CBC & Chem 7: 04/30/18 14:36 04/30/18 14:36 Labs: Laboratory Last Values WBC 9.6 K/mm3 (4.5-11.0) 04/30/18 14:36 RBC 4.63 M/mm3 (3.65-5.03) 04/30/18 14:36 Hgb 12.5 gm/dl (11.8-15.2) 04/30/18 14:36 Hct 38.6 % (35.5-45.6) 04/30/18 14:36 MCV 83 fl (84-94) L 04/30/18 14:36 MCH 27 pg (28-32) L 04/30/18 14:36 MCHC 32 % (32-34) 04/30/18 14:36 RDW 15.6 % (13.2-15.2) H 04/30/18 14:36 Plt Count 198 K/mm3 (140-440) 04/30/18 14:36 Sodium 137 mmol/L (137-145) 04/30/18 14:36 Potassium 3.7 mmol/L (3.6-5.0) 04/30/18 14:36 Chloride 99.6 mmol/L (98-107) 04/30/18 14:36 Carbon Dioxide 25 mmol/L (22-30) 04/30/18 14:36 Anion Gap 16 mmol/L 04/30/18 14:36 BUN 33 mg/dL (9-20) H 04/30/18 14:36 Creatinine 2.2 mg/dL (0.8-1.5) H 04/30/18 14:36 Estimated GFR 39 ml/min 04/30/18 14:36 BUN/Creatinine Ratio 15 % 04/30/18 14:36 Glucose 110 mg/dL (75-100) H 04/30/18 14:36 Calcium 8.8 mg/dL (8.4-10.2) 04/30/18 14:36 Total Bilirubin 0.60 mg/dL (0.1-1.2) 04/30/18 14:36 AST 36 units/L (5-40) 04/30/18 14:36 ALT 47 units/L (7-56) 04/30/18 14:36 Alkaline Phosphatase 50 units/L (35-129) 04/30/18 14:36 Troponin T 0.049 ng/mL (0.00-0.029) H 04/30/18 14:36 NT-Pro-B Natriuret Pep 1035 pg/mL (0-450) H 04/30/18 14:36 Total Protein 6.9 g/dL (6.3-8.2) 04/30/18 14:36 Albumin 3.7 g/dL (3.9-5) L 04/30/18 14:36 Albumin/Globulin Ratio 1.2 % 04/30/18 14:36 Triglycerides 152 mg/dL (2-149) H 04/30/18 14:36 Cholesterol 144 mg/dL (50-199) 04/30/18 14:36 LDL Cholesterol Direct 104 mg/dL (50-130) 04/30/18 14:36 HDL Cholesterol 27 mg/dL (40-59) L 04/30/18 14:36 Cholesterol/HDL Ratio 5.33 % 04/30/18 14:36 Urine Color Straw (Yellow) 04/30/18 17:14 Urine Turbidity Clear (Clear) 04/30/18 17:14 Urine pH 6.0 (5.0-7.0) 04/30/18 17:14 Ur Specific [place] 1.005 (1.003-1.030) 04/30/18 17:14 Urine Protein <15 mg/dl mg/dL (Negative) 04/30/18 17:14 Urine Glucose (UA) Neg mg/dL (Negative) 04/30/18 17:14 Urine Ketones Neg mg/dL (Negative) 04/30/18 17:14 Urine Blood Neg (Negative) 04/30/18 17:14 Urine Nitrite Neg (Negative) 04/30/18 17:14 Urine Bilirubin Neg (Negative) 04/30/18 17:14 Urine Urobilinogen < 2.0 mg/dL (<2.0) 04/30/18 17:14 Ur Leukocyte Esterase Neg (Negative) 04/30/18 17:14 Urine WBC (Auto) 1.0 /HPF (0.0-6.0) 04/30/18 17:14 Urine RBC (Auto) < 1.0 /HPF (0.0-6.0) 04/30/18 17:14 U Epithel Cells (Auto) < 1.0 /HPF (0-13.0) 04/30/18 17:14 Short CBC 04/30/18 Range/Units 14:36 WBC 9.6 (4.5-11.0) K/mm3 Hgb 12.5 (11.8-15.2) gm/dl Hct 38.6 (35.5-45.6) % Plt Count 198 (140-440) K/mm3 BMP 04/30/18 14:36 Sodium 137 Potassium 3.7 Chloride 99.6 Carbon Dioxide 25 BUN 33 H Creatinine 2.2 H Glucose 110 H Calcium 8.8 Cardiac Enzymes 04/30/18 Range/Units 14:36 Troponin T 0.049 H (0.00-0.029) ng/mL Liver Function 04/30/18 Range/Units 14:36 Total Bilirubin 0.60 (0.1-1.2) mg/dL AST 36 (5-40) units/L ALT 47 (7-56) units/L Alkaline Phosphatase 50 (35-129) units/L Albumin 3.7 L (3.9-5) g/dL Urine 04/30/18 Range/Units 17:14 Urine Color Straw (Yellow) Urine pH 6.0 (5.0-7.0) Ur Specific [place] 1.005 (1.003-1.030) Urine Protein <15 mg/dl (Negative) mg/dL Urine Glucose (UA) Neg (Negative) mg/dL - Imaging and Cardiology EKG: report reviewed Imaging and Cardiology: EKG Normal sinus rhythm rate 70 bpm normal axis prolonged AL interval positive LVH no significant ST elevation nonspecific T wave pattern prolonged QT interval CXR Stable marked cardiomegaly. Recommend correlation with echocardiogram if not already performed. Mild interstitial thickening, that may represent interstitial edema. Assessment and Plan Advance Directives: Yes (full code) VTE prophylaxis?: Chemical Plan of care discussed with patient/family: Yes - Patient Problems (1) Acute combined systolic and diastolic congestive heart failure Current Visit: Yes Status: Acute Plan to address problem: Patient initiated on IV Lasix and it hasn't been symptomatic blockers and beta blockers Echocardiogram ordered for ejection fraction Cardiology consult requested Daily weights and daily intake and output (2) Hypertension Current Visit: Yes Status: Chronic Qualifiers: Hypertension type: essential hypertension Qualified Code(s): I10 - Essential (primary) hypertension Plan to address problem: Continue antihypertensives (3) Coronary artery disease Current Visit: Yes Status: Chronic Qualifiers: Coronary Disease-Associated Artery/Lesion type: [place] artery [place] vs. t ransplanted heart: [place] heart Associated angina: without angina Qualified Code(s): I25.10 - Atherosclerotic heart disease of [place] coronary artery without angina pectoris Plan to address problem: Continue Plavix (4) Hyperlipidemia Current Visit: Yes Status: Chronic Qualifiers: Hyperlipidemia type: mixed hyperlipidemia Qualified Code(s): E78.2 - Mixed hyperlipidemia Plan to address problem: Continue statins (5) Chronic kidney disease Current Visit: Yes Status: Chronic Qualifiers: Chronic kidney disease stage: stage 3 (moderate) Qualified Code(s): N18.3 - Chronic kidney disease, stage 3 (moderate) Plan to address problem: Patient has stable chronic kidney disease Nephrology follow-up as outpatient (6) Type 2 diabetes mellitus Current Visit: Yes Status: Chronic Qualifiers: Diabetes mellitus correction insulin use: without ad terminal makeup operator use Plan to address problem: Patient not on any oral hypoglycemics Check hemoglobin A1c Initiate oral hypoglycemics if necessary (7) DVT prophylaxis Current Visit: Yes Status: Acute Plan to address problem: Patient on Lovenox and GI prophylaxis
[2018-04-30] MEDS ORDERED: PERCOCET 5/325 PO PRN (18:41)
[2018-04-30] MEDS ORDERED: DILAUDID IV PRN (18:41)
[2018-04-30] MEDS ORDERED: TYLENOL PO PRN ×2 (18:41→19:59)
[2018-04-30] MEDS ORDERED: SODIUM CHLORIDE FLUSH SYRINGE 10 ML IV PRN ×2 (18:41→19:59)
[2018-04-30] MEDS ORDERED: ZOFRAN IV PRN ×2 (18:41→19:59)
[2018-04-30] MEDS ORDERED: NORVASC ONE (19:51)
[2018-04-30] MEDS ORDERED: PLAVIX ONE (19:52)
[2018-04-30] MEDS ORDERED: COZAAR ONE (19:52)
[2018-04-30] MEDS: COZAAR PO SCH (19:53)
[2018-04-30] MEDS: NORVASC PO SCH (19:53)
[2018-04-30] MEDS: PLAVIX PO SCH (19:53)
[2018-04-30] MEDS: K-DUR PO SCH (21:53)
[2018-04-30] MEDS: HumaLOG SUB-Q SCH (21:53)
[2018-04-30] MEDS: APRESOLINE PO SCH (21:53)
[2018-04-30] MEDS: ALDACTONE PO SCH (21:54)
[2018-04-30] MEDS: CATAPRES PO SCH (21:55)
[2018-04-30] MEDS: COREG PO SCH (21:55)
[2018-04-30] MEDS: SODIUM CHLORIDE FLUSH SYRINGE 10 ML IV SCH ×2 (21:56→21:57)
[2018-04-30] MEDS: PEPCID PO SCH (21:56)
[2018-05-01] MEDS ORDERED: LASIX IV SCH (06:00)
[2018-05-01 06:31] LABS: Hematocrit 38.1 % (35.5-45.6); Hemoglobin 12.6 gm/dl (11.8-15.2); Mean Corpuscular HGB Conc 33 % (32-34); Mean Corpuscular Volume 83 fl (84-94); Platelet Count 203 K/mm3 (140-440); Red Blood Count 4.57 M/mm3 (3.65-5.03); Red Cell Distribution Width 15.3 % (13.2-15.2)
[2018-05-01 06:52] LABS: Albumin 3.9 g/dL (3.9-5); Calcium 8.8 mg/dL (8.4-10.2)
[2018-05-01] MEDS: APRESOLINE PO SCH ×2 (08:21→14:05)
[2018-05-01] MEDS: HumaLOG SUB-Q SCH ×2 (08:23→12:50)
[2018-05-01 08:32] LABS: Basophils % (Manual) 0 % (0.0-1.8); Total Cells Counted 100
[2018-05-01 08:33] LABS: Ovalocytes Few; Platelet Estimate Consistent w Auto; Poikilocytosis 1+
[2018-05-01] MEDS: K-DUR PO SCH (10:48)
[2018-05-01] MEDS: ALDACTONE PO SCH (10:48)
[2018-05-01] MEDS: PEPCID PO SCH (10:48)
[2018-05-01] MEDS: PLAVIX PO SCH (10:48)
[2018-05-01] MEDS: COREG PO SCH (10:49)
[2018-05-01] MEDS: NORVASC PO SCH (10:49)
[2018-05-01] MEDS: CATAPRES PO SCH (10:50)
[2018-05-01] MEDS: COZAAR PO SCH (10:50)
[2018-05-01] MEDS: SODIUM CHLORIDE FLUSH SYRINGE 10 ML IV SCH ×2 (10:51→11:00)
--- NOTE | 2018-05-01 11:31 | Consultation ---
Addendum entered and electronically signed by WERNER DE LA ROSA MD 05/01/18 17:17: 47-year-old man with a history of a dilated nonischemic cardiomyopathy diagnosed in July 2015. He also has chronic hypertension. He presented to the hospital at this time with shortness of breath, mild fluid overload, uncontrolled hypertension. He admits to noncompliance with his medical therapy, noncompliance with outpatient medical visits, and noncompliance with dietary s alt restriction. After intravenous diuretic therapy, he states that he feels better, wants to go home because he has 4 young children residing in a daycare setting while he is hospitalized. He has no chest pain, shortness of breath has improved and he comments to being more compliant with his dietary salt restriction and medical therapy. Recommendations: Medical therapy should include furosemide, metolazone, spironolactone, afterload agent, carvedilol, aspirin. Follow-up in our office and with his primary care doctor in 3-5 days. Original Note: History of Present Illness Consult date: 05/01/18 Consult reason: congestive heart failure History of present illness: Patient is a 47 year old man with a history of known, dilated nonischemic cardiomyopathy who has been lost to outpatient cardiac follow ups. His cardiomyopathy was first diagnosed in July 2015. An echocardiogram at that time revealed ejection fraction 10-15% and a persantine thallium was negative for ischemia. More recently, in March 2016 a follow-up echocardiogram showed ejection fraction mostly unchanged at 20%. Patient also has a prior history of CVA, previously prescribed plavix for medical management. Co-morbidities includes diabetes, hypertension, chronic renal failure and hyperlipidemia. The patient presented with shortness of breath, abdominal distension, admitted to the hospital with CHF. Cardiac consultation was requested. Patient reports he has been out of his medications for 1-2 weeks. He denies chest pain and palpitations. Initial labs shows a creatinine of 2.2. Chest x-ray reports a marked cardiomegaly with mild interstitial edema. An EKG is sinus rhythm with LVH and nonspecific Twave abnormalities. Past History Past Medical History: diabetes, heart failure, hypertension Medications and Allergies Allergies Allergy/AdvReac Type Severity Reaction Status Date / Time No Known Allergies Allergy Verified 08/02/15 11:37 Home Medications Medication Instructions Recorded Confirmed Last Taken Type Spironolactone [Aldactone] 25 mg PO QDAY #30 tablet 05/29/16 04/30/18 1 Week Ago Rx ~04/23/18 Carvedilol [Coreg] 25 mg PO BID #60 tablet 05/07/17 04/30/18 1 Week Ago Rx ~04/23/18 Furosemide [Lasix TAB] 40 mg PO BID #60 tablet 05/07/17 04/30/18 1 Week Ago Rx ~04/23/18 Losartan [Cozaar] 50 mg PO QDAY #30 tablet 05/07/17 04/30/18 1 Week Ago Rx ~04/23/18 cloNIDine [Catapres] 0.2 mg PO BID #60 tablet 05/07/17 04/30/18 1 Week Ago Rx ~04/23/18 hydrALAZINE [Apresoline TAB] 100 mg PO TID #90 tab 05/07/17 04/30/18 1 Week Ago Rx ~04/23/18 AtorvaSTATin [Lipitor] 20 mg PO QHS #30 tab 01/18/18 04/30/18 1 Week Ago Rx ~04/23/18 Clopidogrel [Plavix] 75 mg PO QDAY #30 tablet 01/18/18 04/30/18 1 Week Ago Rx ~04/23/18 amLODIPine [Norvasc] 5 mg PO DAILY #30 tab 01/18/18 04/30/18 1 Week Ago Rx ~04/23/18 Active Meds: Active Medications Acetaminophen (Tylenol) 650 mg PO Q4H PRN PRN Reason: Pain MILD(1-3)/Fever >100.5/[facility] Acetaminophen (Tylenol) 650 mg PO Q4H PRN PRN Reason: Pain MILD(1-3)/Fever >100.5/[facility] Amlodipine Besylate (Norvasc) 5 mg PO DAILY [facility] Last Admin: 05/01/18 10:49 Dose: 5 mg Documented by: Atorvastatin Calcium (Lipitor) 20 mg PO QHS [facility] Last Admin: 04/30/18 21:53 Dose: 20 mg Documented by: Carvedilol (Coreg) 25 mg PO BID [facility] Last Admin: 05/01/18 10:49 Dose: 25 mg Documented by: Clonidine HCl (Catapres) 0.2 mg PO BID [facility] Last Admin: 05/01/18 10:50 Dose: 0.2 mg Documented by: Clopidogrel Bisulfate (Plavix) 75 mg PO QDAY [facility] Last Admin: 05/01/18 10:48 Dose: 75 mg Documented by: Famotidine (Pepcid) 20 mg PO BID [facility] Last Admin: 05/01/18 10:48 Dose: 20 mg Documented by: Furosemide (Lasix) 40 mg IV 0600,1800 [facility] Last Admin: 05/01/18 05:19 Dose: 40 mg Documented by: Hydralazine HCl (Apresoline) 100 mg PO TID [facility] Last Admin: 05/01/18 08:21 Dose: 100 mg Documented by: Hydromorphone HCl (Dilaudid) 0.25 mg IV Q3H PRN PRN Reason: Pain, Moderate (4-6) Insulin Human Lispro (Humalog) 0 unit SUB-Q ACHS [facility]; Protocol Last Admin: 05/01/18 08:23 Dose: Not Given Documented by: Losartan Potassium (Cozaar) 50 mg PO QDAY [facility] Last Admin: 05/01/18 10:50 Dose: 50 mg Documented by: Ondansetron HCl (Zofran) 4 mg IV Q8H PRN PRN Reason: Nausea And Vomiting Ondansetron HCl (Zofran) 4 mg IV Q8H PRN PRN Reason: Nausea And Vomiting Oxycodone/Acetaminophen (Percocet 5/325) 1 tab PO Q6H PRN PRN Reason: Pain, Moderate (4-6) Potassium Chloride (K-Dur) 20 meq PO Q12HR [facility] Last Admin: 05/01/18 10:48 Dose: 20 meq Documented by: Sodium Chloride (Sodium Chloride Flush Syringe 10 Ml) 10 ml IV BID [facility] Last Admin: 05/01/18 10:51 Dose: 10 ml Documented by: Sodium Chloride (Sodium Chloride Flush Syringe 10 Ml) 10 ml IV BID [facility] Last Admin: 05/01/18 11:00 Dose: Not Given Documented by: Sodium Chloride (Sodium Chloride Flush Syringe 10 Ml) 10 ml IV PRN PRN PRN Reason: LINE FLUSH Spironolactone (Aldactone) 25 mg PO QDAY [facility] Last Admin: 05/01/18 10:48 Dose: 25 mg Documented by: Physical Examination Vital Signs Temp Pulse Resp BP Pulse Ox 98.1 F 77 20 161/116 92 04/30/18 14:07 04/30/18 14:07 04/30/18 14:07 04/30/18 14:07 04/30/18 14:07 General appearance: no acute distress HEENT: Positive: PERRL Neck: Positive: trachea midline Cardiac: Positive: Reg Rate and Rhythm Lungs: Positive: Decreased Breath Sounds Neuro: Positive: Grossly Intact Abdomen: Positive: Distended Extremities: Present: +1 Edema Results 05/01/18 04:43 05/01/18 04:43 Cardiac Enzymes 04/30/18 04/30/18 04/30/18 Range/Units 14:36 14:36 14:36 WBC 9.6 (4.5-11.0) K/mm3 RBC 4.63 (3.65-5.03) M/mm3 Hgb 12.5 (11.8-15.2) gm/dl Hct 38.6 (35.5-45.6) % MCV 83 L (84-94) fl MCH 27 L (28-32) pg MCHC 32 (32-34) % RDW 15.6 H (13.2-15.2) % Plt Count 198 (140-440) K/mm3 [place] % (Auto) Add Manual Diff Total Counted Seg Neutrophils % Seg Neuts % (Manual) (40.0-70.0) % Band Neutrophils % % Lymphocytes % (Manual) (13.4-35.0) % Reactive Lymphs % (Man) % Monocytes % (Manual) (0.0-7.3) % Eosinophils % (Manual) (0.0-4.3) % Basophils % (Manual) (0.0-1.8) % Metamyelocytes % % Myelocytes % % Promyelocytes % % Blast Cells % % Nucleated RBC % Seg Neutrophils # Man (1.8-7.7) K/mm3 Band Neutrophils # K/mm3 Lymphocytes # (Manual) (1.2-5.4) K/mm3 Abs React Lymphs (Man) K/mm3 Monocytes # (Manual) (0.0-0.8) K/mm3 Eosinophils # (Manual) (0.0-0.4) K/mm3 Basophils # (Manual) (0.0-0.1) K/mm3 Metamyelocytes # K/mm3 Myelocytes # K/mm3 Promyelocytes # K/mm3 Blast Cells # K/mm3 WBC Morphology Hypersegmented Neuts Hyposegmented Neuts Hypogranular Neuts Smudge Cells Toxic Granulation Toxic Vacuolation Dohle Bodies Pelger-Huet Anomaly Skip Rods Platelet Estimate Clumped Platelets Plt Clumps, EDTA Large Platelets Giant Platelets Platelet Satelliting Plt Morphology Comment RBC Morphology Dimorphic RBCs Polychromasia Hypochromasia Poikilocytosis Anisocytosis Microcytosis Macrocytosis Spherocytes Pappenheimer Bodies Sickle Cells Target Cells Tear Drop Cells Ovalocytes Helmet Cells Maria-[place] Bodies Dunreith Rings Acme Cells Bite Cells Crenated Cell Elliptocytes Acanthocytes (Spur) Rouleaux Hemoglobin C Crystals Schistocytes Malaria parasites Walter Bodies Hem Pathologist Commnt Sodium 137 (137-145) mmol/L Potassium 3.7 (3.6-5.0) mmol/L Chloride 99.6 (98-107) mmol/L Carbon Dioxide 25 (22-30) mmol/L Anion Gap 16 mmol/L BUN 33 H (9-20) mg/dL Creatinine 2.2 H (0.8-1.5) mg/dL Estimated GFR 39 ml/min BUN/Creatinine Ratio 15 % Glucose 110 H (75-100) mg/dL POC Glucose (70-105) Hemoglobin A1c 8.5 H (4-6) % Calcium 8.8 (8.4-10.2) mg/dL Phosphorus (2.5-4.5) mg/dL Magnesium (1.7-2.3) mg/dL Total Bilirubin 0.60 (0.1-1.2) mg/dL AST 36 (5-40) units/L ALT 47 (7-56) units/L Alkaline Phosphatase 50 (35-129) units/L Troponin T 0.049 H (0.00-0.029) ng/mL NT-Pro-B Natriuret Pep 1035 H (0-450) pg/mL Total Protein 6.9 (6.3-8.2) g/dL Albumin 3.7 L (3.9-5) g/dL Albumin/Globulin Ratio 1.2 % Triglycerides 152 H (2-149) mg/dL Cholesterol 144 (50-199) mg/dL LDL Cholesterol Direct 104 (50-130) mg/dL HDL Cholesterol 27 L (40-59) mg/dL Cholesterol/HDL Ratio 5.33 % Urine Color (Yellow) Urine Turbidity (Clear) Urine pH (5.0-7.0) Ur Specific [place] (1.003-1.030) Urine Protein (Negative) mg/dL Urine Glucose (UA) (Negative) mg/dL Urine Ketones (Negative) mg/dL Urine Blood (Negative) Urine Nitrite (Negative) Urine Bilirubin (Negative) Urine Urobilinogen (<2.0) mg/dL Ur Leukocyte Esterase (Negative) Urine WBC (Auto) (0.0-6.0) /HPF Urine RBC (Auto) (0.0-6.0) /HPF U Epithel Cells (Auto) (0-13.0) /HPF 04/30/18 04/30/18 04/30/18 Range/Units 15:14 15:17 17:14 WBC (4.5-11.0) K/mm3 RBC (3.65-5.03) M/mm3 Hgb (11.8-15.2) gm/dl Hct (35.5-45.6) % MCV (84-94) fl MCH (28-32) pg MCHC (32-34) % RDW (13.2-15.2) % Plt Count (140-440) K/mm3 [place] % (Auto) Add Manual Diff Total Counted Seg Neutrophils % Seg Neuts % (Manual) (40.0-70.0) % Band Neutrophils % % Lymphocytes % (Manual) (13.4-35.0) % Reactive Lymphs % (Man) % Monocytes % (Manual) (0.0-7.3) % Eosinophils % (Manual) (0.0-4.3) % Basophils % (Manual) (0.0-1.8) % Metamyelocytes % % Myelocytes % % Promyelocytes % % Blast Cells % % Nucleated RBC % Seg Neutrophils # Man (1.8-7.7) K/mm3 Band Neutrophils # K/mm3 Lymphocytes # (Manual) (1.2-5.4) K/mm3 Abs React Lymphs (Man) K/mm3 Monocytes # (Manual) (0.0-0.8) K/mm3 Eosinophils # (Manual) (0.0-0.4) K/mm3 Basophils # (Manual) (0.0-0.1) K/mm3 Metamyelocytes # K/mm3 Myelocytes # K/mm3 Promyelocytes # K/mm3 Blast Cells # K/mm3 WBC Morphology Hypersegmented Neuts Hyposegmented Neuts Hypogranular Neuts Smudge Cells Toxic Granulation Toxic Vacuolation Dohle Bodies Pelger-Huet Anomaly Skip Rods Platelet Estimate Clumped Platelets Plt Clumps, EDTA Large Platelets Giant Platelets Platelet Satelliting Plt Morphology Comment RBC Morphology Dimorphic RBCs Polychromasia Hypochromasia Poikilocytosis Anisocytosis Microcytosis Macrocytosis Spherocytes Pappenheimer Bodies Sickle Cells Target Cells Tear Drop Cells Ovalocytes Helmet Cells Maria-[place] Bodies [place] Rings Ella Cells Bite Cells Crenated Cell Elliptocytes Acanthocytes (Spur) Rouleaux Hemoglobin C Crystals Schistocytes Malaria parasites Walter Bodies Hem Pathologist Commnt Sodium (137-145) mmol/L Potassium (3.6-5.0) mmol/L Chloride (98-107) mmol/L Carbon Dioxide (22-30) mmol/L Anion Gap mmol/L BUN (9-20) mg/dL Creatinine (0.8-1.5) mg/dL Estimated GFR ml/min BUN/Creatinine Ratio % Glucose (75-100) mg/dL POC Glucose (70-105) Hemoglobin A1c (4-6) % Calcium (8.4-10.2) mg/dL Phosphorus 4.00 (2.5-4.5) mg/dL Magnesium 2.00 (1.7-2.3) mg/dL Total Bilirubin (0.1-1.2) mg/dL AST (5-40) units/L ALT (7-56) units/L Alkaline Phosphatase (35-129) units/L Troponin T (0.00-0.029) ng/mL NT-Pro-B Natriuret Pep (0-450) pg/mL Total Protein (6.3-8.2) g/dL Albumin (3.9-5) g/dL Albumin/Globulin Ratio % Triglycerides (2-149) mg/dL Cholesterol (50-199) mg/dL LDL Cholesterol Direct (50-130) mg/dL HDL Cholesterol (40-59) mg/dL Cholesterol/HDL Ratio % Urine Color Straw (Yellow) Urine Turbidity Clear (Clear) Urine pH 6.0 (5.0-7.0) Ur Specific [place] 1.005 (1.003-1.030) Urine Protein <15 mg/dl (Negative) mg/dL Urine Glucose (UA) Neg (Negative) mg/dL Urine Ketones Neg (Negative) mg/dL Urine Blood Neg (Negative) Urine Nitrite Neg (Negative) Urine Bilirubin Neg (Negative) Urine Urobilinogen < 2.0 (<2.0) mg/dL Ur Leukocyte Esterase Neg (Negative) Urine WBC (Auto) 1.0 (0.0-6.0) /HPF Urine RBC (Auto) < 1.0 (0.0-6.0) /HPF U Epithel Cells (Auto) < 1.0 (0-13.0) /HPF 04/30/18 04/30/18 05/01/18 Range/Units 20:57 22:16 04:43 WBC 10.0 (4.5-11.0) K/mm3 RBC 4.57 (3.65-5.03) M/mm3 Hgb 12.6 (11.8-15.2) gm/dl Hct 38.1 (35.5-45.6) % MCV 83 L (84-94) fl MCH 28 (28-32) pg MCHC 33 (32-34) % RDW 15.3 H (13.2-15.2) % Plt Count 203 (140-440) K/mm3 [place] % (Auto) Naval Architect Add Manual Diff Complete Total Counted 100 Seg Neutrophils % Naval Architect Seg Neuts % (Manual) 55.0 (40.0-70.0) % Band Neutrophils % 0 % Lymphocytes % (Manual) 20.0 (13.4-35.0) % Reactive Lymphs % (Man) 0 % Monocytes % (Manual) 24.0 H (0.0-7.3) % Eosinophils % (Manual) 1.0 (0.0-4.3) % Basophils % (Manual) 0 (0.0-1.8) % Metamyelocytes % 0 % Myelocytes % 0 % Promyelocytes % 0 % Blast Cells % 0 % Nucleated RBC % Not Reportable Seg Neutrophils # Man 5.5 (1.8-7.7) K/mm3 Band Neutrophils # 0.0 K/mm3 Lymphocytes # (Manual) 2.0 (1.2-5.4) K/mm3 Abs React Lymphs (Man) 0.0 K/mm3 Monocytes # (Manual) 2.4 H (0.0-0.8) K/mm3 Eosinophils # (Manual) 0.1 (0.0-0.4) K/mm3 Basophils # (Manual) 0.0 (0.0-0.1) K/mm3 Metamyelocytes # 0.0 K/mm3 Myelocytes # 0.0 K/mm3 Promyelocytes # 0.0 K/mm3 Blast Cells # 0.0 K/mm3 WBC Morphology Not Reportable Hypersegmented Neuts Not Reportable Hyposegmented Neuts Not Reportable Hypogranular Neuts Not Reportable Smudge Cells Not Reportable Toxic Granulation Not Reportable Toxic Vacuolation Not Reportable Dohle Bodies Not Reportable Pelger-Huet Anomaly Not Reportable Skip Rods Not Reportable Platelet Estimate Consistent w auto Clumped Platelets Not Reportable Plt Clumps, EDTA Not Reportable Large Platelets Not Reportable Giant Platelets Not Reportable Platelet Satelliting Not Reportable Plt Morphology Comment Not Reportable RBC Morphology Not Reportable Dimorphic RBCs Not Reportable Polychromasia Not Reportable Hypochromasia Not Reportable Poikilocytosis 1+ Anisocytosis Not Reportable Microcytosis Not Reportable Macrocytosis Not Reportable Spherocytes Not Reportable Pappenheimer Bodies Not Reportable Sickle Cells Not Reportable Target Cells Not Reportable Tear Drop Cells Not Reportable Ovalocytes Few Helmet Cells Not Reportable Maria-[place] Bodies Not Reportable Dunreith Rings Not Reportable Ella Cells Not Reportable Bite Cells Not Reportable Crenated Cell Not Reportable Elliptocytes Not Reportable Acanthocytes (Spur) Not Reportable Rouleaux Not Reportable Hemoglobin C Crystals Not Reportable Schistocytes Not Reportable Malaria parasites Not Reportable Walter Bodies Not Reportable Hem Pathologist Commnt No Sodium (137-145) mmol/L Potassium (3.6-5.0) mmol/L Chloride (98-107) mmol/L Carbon Dioxide (22-30) mmol/L Anion Gap mmol/L BUN (9-20) mg/dL Creatinine (0.8-1.5) mg/dL Estimated GFR ml/min BUN/Creatinine Ratio % Glucose (75-100) mg/dL POC Glucose 156 H (70-105) Hemoglobin A1c (4-6) % Calcium (8.4-10.2) mg/dL Phosphorus (2.5-4.5) mg/dL Magnesium (1.7-2.3) mg/dL Total Bilirubin (0.1-1.2) mg/dL AST (5-40) units/L ALT (7-56) units/L Alkaline Phosphatase (35-129) units/L Troponin T 0.043 H (0.00-0.029) ng/mL NT-Pro-B Natriuret Pep (0-450) pg/mL Total Protein (6.3-8.2) g/dL Albumin (3.9-5) g/dL Albumin/Globulin Ratio % Triglycerides (2-149) mg/dL Cholesterol (50-199) mg/dL LDL Cholesterol Direct (50-130) mg/dL HDL Cholesterol (40-59) mg/dL Cholesterol/HDL Ratio % Urine Color (Yellow) Urine Turbidity (Clear) Urine pH (5.0-7.0) Ur Specific [place] (1.003-1.030) Urine Protein (Negative) mg/dL Urine Glucose (UA) (Negative) mg/dL Urine Ketones (Negative) mg/dL Urine Blood (Negative) Urine Nitrite (Negative) Urine Bilirubin (Negative) Urine Urobilinogen (<2.0) mg/dL Ur Leukocyte Esterase (Negative) Urine WBC (Auto) (0.0-6.0) /HPF Urine RBC (Auto) (0.0-6.0) /HPF U Epithel Cells (Auto) (0-13.0) /HPF 05/01/18 05/01/18 Range/Units 04:43 06:15 WBC (4.5-11.0) K/mm3 RBC (3.65-5.03) M/mm3 Hgb (11.8-15.2) gm/dl Hct (35.5-45.6) % MCV (84-94) fl MCH (28-32) pg MCHC (32-34) % RDW (13.2-15.2) % Plt Count (140-440) K/mm3 [place] % (Auto) Add Manual Diff Total Counted Seg Neutrophils % Seg Neuts % (Manual) (40.0-70.0) % Band Neutrophils % % Lymphocytes % (Manual) (13.4-35.0) % Reactive Lymphs % (Man) % Monocytes % (Manual) (0.0-7.3) % Eosinophils % (Manual) (0.0-4.3) % Basophils % (Manual) (0.0-1.8) % Metamyelocytes % % Myelocytes % % Promyelocytes % % Blast Cells % % Nucleated RBC % Seg Neutrophils # Man (1.8-7.7) K/mm3 Band Neutrophils # K/mm3 Lymphocytes # (Manual) (1.2-5.4) K/mm3 Abs React Lymphs (Man) K/mm3 Monocytes # (Manual) (0.0-0.8) K/mm3 Eosinophils # (Manual) (0.0-0.4) K/mm3 Basophils # (Manual) (0.0-0.1) K/mm3 Metamyelocytes # K/mm3 Myelocytes # K/mm3 Promyelocytes # K/mm3 Blast Cells # K/mm3 WBC Morphology Hypersegmented Neuts Hyposegmented Neuts Hypogranular Neuts Smudge Cells Toxic Granulation Toxic Vacuolation Dohle Bodies Pelger-Huet Anomaly Skip Rods Platelet Estimate Clumped Platelets Plt Clumps, EDTA Large Platelets Giant Platelets Platelet Satelliting Plt Morphology Comment RBC Morphology Dimorphic RBCs Polychromasia Hypochromasia Poikilocytosis Anisocytosis Microcytosis Macrocytosis Spherocytes Pappenheimer Bodies Sickle Cells Target Cells Tear Drop Cells Ovalocytes Helmet Cells Maria-[place] Bodies Dunre[place] Rings Ella Cells Bite Cells Crenated Cell Elliptocytes Acanthocytes (Spur) Rouleaux Hemoglobin C Crystals Schistocytes Malaria parasites Walter Bodies Hem Pathologist Commnt Sodium 138 (137-145) mmol/L Potassium 4.0 (3.6-5.0) mmol/L Chloride 97.2 L (98-107) mmol/L Carbon Dioxide 27 (22-30) mmol/L Anion Gap 18 mmol/L BUN 32 H (9-20) mg/dL Creatinine 2.0 H (0.8-1.5) mg/dL Estimated GFR 44 ml/min BUN/Creatinine Ratio 16 % Glucose 133 H (75-100) mg/dL POC Glucose 134 H (70-105) Hemoglobin A1c (4-6) % Calcium 8.8 (8.4-10.2) mg/dL Phosphorus (2.5-4.5) mg/dL Magnesium (1.7-2.3) mg/dL Total Bilirubin 0.50 (0.1-1.2) mg/dL AST 30 (5-40) units/L ALT 46 (7-56) units/L Alkaline Phosphatase 53 (35-129) units/L Troponin T (0.00-0.029) ng/mL NT-Pro-B Natriuret Pep (0-450) pg/mL Total Protein 6.8 (6.3-8.2) g/dL Albumin 3.9 (3.9-5) g/dL Albumin/Globulin Ratio 1.3 % Triglycerides (2-149) mg/dL Cholesterol (50-199) mg/dL LDL Cholesterol Direct (50-130) mg/dL HDL Cholesterol (40-59) mg/dL Cholesterol/HDL Ratio % Urine Color (Yellow) Urine Turbidity (Clear) Urine pH (5.0-7.0) Ur Specific [place] (1.003-1.030) Urine Protein (Negative) mg/dL Urine Glucose (UA) (Negative) mg/dL Urine Ketones (Negative) mg/dL Urine Blood (Negative) Urine Nitrite (Negative) Urine Bilirubin (Negative) Urine Urobilinogen (<2.0) mg/dL Ur Leukocyte Esterase (Negative) Urine WBC (Auto) (0.0-6.0) /HPF Urine RBC (Auto) (0.0-6.0) /HPF U Epithel Cells (Auto) (0-13.0) /HPF Lipids 04/30/18 Range/Units 14:36 Triglycerides 152 H (2-149) mg/dL Cholesterol 144 (50-199) mg/dL HDL Cholesterol 27 L (40-59) mg/dL Cholesterol/HDL Ratio 5.33 % CBC 04/30/18 05/01/18 Range/Units 14:36 04:43 WBC 9.6 10.0 (4.5-11.0) K/mm3 RBC 4.63 4.57 (3.65-5.03) M/mm3 Hgb 12.5 12.6 (11.8-15.2) gm/dl Hct 38.6 38.1 (35.5-45.6) % Plt Count 198 203 (140-440) K/mm3 Comprehensive Metabolic Panel 04/30/18 05/01/18 Range/Units 14:36 04:43 Sodium 137 138 (137-145) mmol/L Potassium 3.7 4.0 (3.6-5.0) mmol/L Chloride 99.6 97.2 L (98-107) mmol/L Carbon Dioxide 25 27 (22-30) mmol/L BUN 33 H 32 H (9-20) mg/dL Creatinine 2.2 H 2.0 H (0.8-1.5) mg/dL Glucose 110 H 133 H (75-100) mg/dL Calcium 8.8 8.8 (8.4-10.2) mg/dL AST 36 30 (5-40) units/L ALT 47 46 (7-56) units/L Alkaline Phosphatase 50 53 (35-129) units/L Total Protein 6.9 6.8 (6.3-8.2) g/dL Albumin 3.7 L 3.9 (3.9-5) g/dL Assessment and Plan Acute on chronic CHF s/t noncompliance with medications Diabetes Non-ischemic cardiomyopathy, LVEF 20% No ischemia by MPI 2015 History of CVA -on plavix Hypertension Chronic renal failure
--- NOTE | 2018-05-01 13:18 | Discharge Summary ---
Providers - Providers Date of Admission: 04/30/18 16:11 Date of discharge: 05/01/18 Attending physician: TANVIR EGAN MD 04/30/18 18:41 Consult to Physician [CONS] Routine Comment: Consulting Provider: ROSS MARTELL Physician Instructions: Reason For Exam: chf exacerbation Primary care physician: CHERIE DORANTES Hospitalization Reason for admission: acute on chronic systolic CHF exacerbation Condition: Stable Pertinent studies: Echo 10-15% Hospital course: 47-year-old -[place] male with past medical history significant for hypertension, hyperlipidemia, systolic CHF with ejection fraction of 20-25% was presented to the emergency department complaining of shortness of breath. Patient has been out of his medication for a while. Patient didn't have any primary care physician/ no insurance. Patient was admitted and he was managed with IV Lasix and on other appropriate CHF medications were continued. This morning patient's symptoms have resolved and was seen by cardiology. Cardiology said okay to discharge with follow-up appointment was in 1 week, optimize his CHF medications. Patient is hemodynamically stable as a time of discharge. Discussed his to his center human resources manager to discuss about options of getting disability. Patient discharged home. I will give him one month supply of his medications. Patient has acute renal failure and held his ARB/ACEI. Disposition: TO HOME OR SELFCARE Time spent for discharge: 32 minutes - Discharge Diagnoses (1) Acute combined systolic and diastolic congestive heart failure Status: Acute (2) Acute kidney injury superimposed on CKD Status: Acute (3) Hyperlipidemia Status: Chronic Qualifiers: Hyperlipidemia type: mixed hyperlipidemia Qualified Code(s): E78.2 - Mixed hyperlipidemia (4) HTN (hypertension) Status: Chronic Qualifiers: Hypertension type: essential hypertension Qualified Code(s): I10 - Essential (primary) hypertension (5) Obesity Status: Chronic (6) Acute on chronic combined systolic and diastolic CHF (congestive heart failure) Status: Acute Core Measure Documentation - Palliative Care Palliative Care/ Comfort Measures: Not Applicable - Core Measures Any of the following diagnoses?: heart failure - Heart Failure Discharge Requirements RADHA/ARB for LVSD if EF <40%: No Reason for no RADHA/ARB: Renal impairment Beta wandy at discharge: Yes Exam - Physical Exam Narrative exam: Not in cardiopulmonary distress. The patient appeared well nourished and normally developed. Vital signs as documented. Head exam is unremarkable. No scleral icterus . Neck is without jugular venous distension, thyromegaly, or carotid bruits. Lungs are clear to auscultation. Cardiac exam reveals regular rate and Rhythm. First and second heart sounds normal. No murmurs, rubs or gallops. Abdominal exam reveals normal bowel sounds, no masses, no organomegaly and no aortic enlargement. Extremities trace edema. BACKEND DEVELOPER: Alert and oriented 3. No focal weakness. - Constitutional Vitals: Temp Pulse Resp BP Pulse Ox 97.7 F 70 20 144/86 94 05/01/18 08:29 05/01/18 10:50 05/01/18 08:29 05/01/18 10:50 05/01/18 08:29 Plan Activity: no restrictions Weight Bearing Status: Full Weight Bearing Diet: low cholesterol, low salt Follow up with: CHERIE DORANTES MD [Primary Care Provider] - 3-5 Days WERNER DE LA ROSA MD [Staff Physician] - 7 Days Prescriptions: AtorvaSTATin [Lipitor] 20 mg PO QHS #30 tab amLODIPine [Norvasc] 5 mg PO DAILY #30 tab Carvedilol [Coreg] 25 mg PO BID #60 tablet cloNIDine [Catapres] 0.2 mg PO BID #60 tablet Clopidogrel [Plavix] 75 mg PO QDAY #30 tablet Furosemide [Lasix TAB] 40 mg PO BID #60 tablet hydrALAZINE [Apresoline TAB] 100 mg PO TID #90 tab metOLazone [Metolazone] 5 mg PO DAILY #30 tablet Spironolactone [Aldactone] 25 mg PO QDAY #30 tablet
[2018-05-01 14:16] VITALS: BP 122/86
== END 2018-05-01 14:45 | disposition home or self-care (01) | DRG 682 ==
LOC: ED 14:01 → 4A 16:11
PROVIDERS: ADMIT Internal Medicine; ATTEND Internal Medicine
DX: N17.9 Acute kidney failure, unspecified (principal); I50.43 Acute on chronic combined systolic (congestive) and diastolic (congestive) heart failure; I13.0 Hypertensive heart and chronic kidney disease with heart failure and stage 1 through stage 4 chronic kidney disease, or unspecified chronic kidney disease; Z68.42 Body mass index [BMI] 45.0-49.9, adult; I42.0 Dilated cardiomyopathy; N18.9 Chronic kidney disease, unspecified; E78.2 Mixed hyperlipidemia; E11.22 Type 2 diabetes mellitus with diabetic chronic kidney disease; I25.10 Atherosclerotic heart disease of native coronary artery without angina pectoris; E66.9 Obesity, unspecified; Z91.14 Patient's other noncompliance with medication regimen; Z79.899 Other long term (current) drug therapy; Z86.73 Personal history of transient ischemic attack (TIA), and cerebral infarction without residual deficits; Z82.49 Family history of ischemic heart disease and other diseases of the circulatory system
CPT/HCPCS: 36415; 71046; 80053; 80061; 81001; 82962; 83036; 83735; 83880; 84100; 84484; 85007; 85025; 85027; 93005; 93010; 93306; 96374; G0378; A9270-GY; J1940

== ENCOUNTER 2019-07-06 16:38 | Observation (INO) | payer MEDICAID ==
--- NOTE | 2019-07-06 16:57 | Emergency Department Report ---
Blank Doc - Documentation Documentation: 48-year-old male that presents with difficulty speaking with one sided weakness x3 days. HX of stroke. This initial assessment/diagnostic orders/clinical plan/treatment(s) is/are subject to change based on patient's health status, clinical progression and re- assessment by fellow clinical providers in the ED. Further treatment and workup at subsequent clinical providers discretion. Patient/guardians urged not to elope from the ED as their condition may be serious if not clinically assessed and managed. Initial orders include: 1- Patient sent to [facility] for further evaluation and treatment 2- stroke protocol
[2019-07-06 18:10] LABS: Basophils # (Auto) 0.1 K/mm3 (0.0-0.1); Basophils % (Auto) 0.6 % (0.0-1.8); Eosinophils # (Auto) 0.1 K/mm3 (0.0-0.4); Eosinophils % (Auto) 0.6 % (0.0-4.3); Hematocrit 46.4 % (35.5-45.6); Hemoglobin 15.2 gm/dl (11.8-15.2); Lymphocytes # (Auto) 2.1 K/mm3 (1.2-5.4); Lymphocytes % (Auto) 23.1 % (13.4-35.0); Mean Corpuscular HGB Conc 33 % (32-34); Mean Corpuscular Volume 86 fl (84-94); Monocytes # (Auto) 0.8 K/mm3 (0.0-0.8); Monocytes % (Auto) 8.2 % (0.0-7.3); Platelet Count 211 K/mm3 (140-440); Red Blood Count 5.39 M/mm3 (3.65-5.03); Red Cell Distribution Width 12.8 % (13.2-15.2)
[2019-07-06 18:21] LABS: Creatine Kinase MB 1.8 ng/mL (0.0-4.0)
[2019-07-06 18:22] LABS: Alanine Aminotransferase 10 units/L (7-56); Albumin 4.1 g/dL (3.9-5); BUN/Creatinine Ratio 17; Blood Urea Nitrogen 26 mg/dL (9-20); Calcium 9.6 mg/dL (8.4-10.2); Hemolysis Index 5
[2019-07-06 18:44] LABS: INR 1.1 (0.87-1.13)
[2019-07-06 18:45] LABS: Partial Thromboplastin Time 25.2 Sec. (24.2-36.6); Thrombin Time 17.8 Sec. (15.1-19.6)
[2019-07-06] MEDS ORDERED: INSULIN REGULAR, HUMAN 100 UNITS/1 ML IV ONE (20:16)
--- NOTE | 2019-07-06 20:18 | Emergency Department Report ---
ED General Adult HPI - General Chief complaint: Neuro Symptoms/Deficit Stated complaint: WEAKNESS Time Seen by Provider: 07/06/19 16:55 Source: patient, RN notes reviewed, old records reviewed Mode of arrival: Ambulatory Limitations: No Limitations - History of Present Illness Initial comments: The patient is a pleasant 48-year-old gentleman. He has a past medical history of hypertension, diabetes, CHF, ejection fraction 10 to 15%, stroke, renal insu fficiency Patient reports his local primary care doctor is at [facility]. He denies confirmed exposure to coronavirus. He presents to the ER with a primary complaint of of slurred speech. He reports this happened 3 days ago. He reports he had word finding difficulty and speech difficulty. He contacted 911, and was advised to present to the emergency room for "mini stroke." His symptoms resolved that day. However, he does feel mildly thirsty, has increased urination, and also complains of monocular blurry vision. He has no physical pain at this time. He reports that he ran out of his insulin 70/30 a few days ago. -: days(s) (3) Consistency: now resolved Improves with: none Worsens with: none - Related Data Previous Rx's Medication Instructions Recorded Last Taken Type AtorvaSTATin [Lipitor] 20 mg PO QHS #30 tab 01/06/19 Unknown Rx Clopidogrel [Plavix] 75 mg PO QDAY #30 tablet 01/06/19 Unknown Rx Insulin NPH/Regular [NovoLIN 70/30] 45 unit SUB-Q BIDDIAB #30 units 01/06/19 Unknown Rx Insulin Regular, Human [Novolin R] 1 dose SQ TIDAC PRN #1 vial 01/06/19 Unknown Rx Torsemide [Demadex] 20 mg PO BID@0600,1800 #60 tablet 01/06/19 Unknown Rx amLODIPine 5 mg PO DAILY #30 tab 01/06/19 Unknown Rx carvediloL [Coreg] 25 mg PO BID #60 tablet 01/06/19 Unknown Rx cloNIDine [Catapres] 0.2 mg PO BID #60 tablet 01/06/19 Unknown Rx hydrALAZINE [Apresoline TAB] 100 mg PO TID #90 tab 01/06/19 Unknown Rx Allergies Allergy/AdvReac Type Severity Reaction Status Date / Time No Known Allergies Allergy Verified 08/02/15 11:37 ED Review of Systems ROS: Stated complaint: WEAKNESS Other details as noted in HPI Constitutional: denies: fever Eyes: vision change. denies: eye pain ENT: denies: congestion Respiratory: denies: cough Cardiovascular: denies: chest pain, syncope Gastrointestinal: denies: abdominal pain Genitourinary: as per HPI. denies: dysuria Musculoskeletal: as per HPI Skin: as per HPI Neurological: as per HPI Psychiatric: as per HPI Hematological/Lymphatic: as per HPI ED Past Medical Hx - Past Medical History Previous Medical History?: Yes Hx Hypertension: Yes Hx Heart Attack/AMI: No Hx Congestive Heart Failure: Yes Hx Diabetes: Yes Hx Deep Vein Thrombosis: No Hx Asthma: No Hx COPD: No Hx HIV: No Additional medical history: OBESITY - Surgical History Past Surgical History?: Yes Hx Coronary Stent: No Hx Pacemaker: No Hx Internal Defibrillator: No Additional Surgical History: incision and drainage rectal area. - Social History Smoking Status: Never Smoker Substance Use Type: None - Medications Home Medications: Home Medications Medication Instructions Recorded Confirmed Last Taken Type AtorvaSTATin [Lipitor] 20 mg PO QHS #30 tab 01/06/19 Unknown Rx Clopidogrel [Plavix] 75 mg PO QDAY #30 tablet 01/06/19 Unknown Rx Insulin NPH/Regular [NovoLIN 70/30] 45 unit SUB-Q BIDDIAB #30 units 01/06/19 Unknown Rx Insulin Regular, Human [Novolin R] 1 dose SQ TIDAC PRN #1 vial 01/06/19 Unknown Rx Torsemide [Demadex] 20 mg PO BID@0600,1800 #60 tablet 01/06/19 Unknown Rx amLODIPine 5 mg PO DAILY #30 tab 01/06/19 Unknown Rx carvediloL [Coreg] 25 mg PO BID #60 tablet 01/06/19 Unknown Rx cloNIDine [Catapres] 0.2 mg PO BID #60 tablet 01/06/19 Unknown Rx hydrALAZINE [Apresoline TAB] 100 mg PO TID #90 tab 01/06/19 Unknown Rx ED Physical Exam - General Limitations: No Limitations General appearance: alert, in no apparent distress - Head Head exam: Present: atraumatic, normocephalic - Eye Eye exam: Present: normal appearance (Left ocular exam shows a cloudy cornea, with a pupil that is minimally reactive to light), PERRL, EOMI, other (Visual acuity is intact to finger counting and color perception at close distance in the right eye. Left eye has no visual acuity at baseline.). Absent: nystagmus - ENT ENT exam: Present: normal exam, normal orophraynx, mucous membranes moist, normal external ear exam - Neck Neck exam: Present: normal inspection, full ROM. Absent: tenderness, meningismus - Respiratory Respiratory exam: Present: normal lung sounds bilaterally. Absent: respiratory distress - Cardiovascular Cardiovascular Exam: Present: regular rate, normal rhythm, normal heart sounds. Absent: bradycardia, tachycardia, irregular rhythm, systolic murmur, diastolic murmur, rubs, gallop - GI/Abdominal GI/Abdominal exam: Present: soft, normal bowel sounds. Absent: distended, tenderness, guarding, rebound, rigid, pulsatile mass - Rectal Rectal exam: Present: deferred - Extremities Exam Extremities exam: Present: normal inspection, full ROM, other (2+ pulses noted in the bilateral upper and lower extremities. There is no palpable cord. negative Homans sign. Muscular compartments are soft. The pelvis is stable.). Absent: pedal edema, calf tenderness - Back Exam Back exam: Present: normal inspection, full ROM. Absent: tenderness, CVA tender ness (R), CVA tenderness (L), paraspinal tenderness, vertebral tenderness - Neurological Exam Neurological exam: Present: alert, normal gait, other (There is no facial droop. The tongue is midline. Extraocular movements are intact bilaterally. There is 5 out of 5 strength in bilateral upper and lower extremities. Sensation is intact to light touch bilateral upper and lower extremities. There is a normal gait.). Absent: motor sensory deficit - Psychiatric Psychiatric exam: Present: normal affect, normal mood - Skin Skin exam: Present: warm, dry, intact, normal color. Absent: rash ED Course Vital Signs 07/06/19 07/06/19 07/06/19 16:54 19:14 20:00 Temperature 98.1 F 98.1 F Pulse Rate 92 H 87 Respiratory 20 18 Rate Blood Pressure 190/111 Blood Pressure 140/95 [Left] O2 Sat by Pulse 97 100 Oximetry 07/06/19 07/06/19 20:42 20:46 Temperature Pulse Rate 84 90 Respiratory 15 17 Rate Blood Pressure Blood Pressure [Left] O2 Sat by Pulse 98 99 Oximetry - Reevaluation(s) Reevaluation #1: 03/23/20 21:33 CT scan of the brain is negative for acute disease. Hospital physician, Dr. Gee to admit patient to the medical service ED Medical Decision Making - Lab Data Result diagrams: 07/06/19 17:52 07/06/19 17:52 Vital Signs 07/06/19 07/06/19 16:54 19:14 Temperature 98.1 F Pulse Rate 92 H 87 Respiratory 20 18 Rate Blood Pressure 190/111 Blood Pressure 140/95 [Left] O2 Sat by Pulse 97 100 Oximetry Lab Results 07/06/19 07/06/19 07/06/19 Range/Units 17:52 17:52 17:52 WBC 9.2 (4.5-11.0) K/mm3 RBC 5.39 H (3.65-5.03) M/mm3 Hgb 15.2 (11.8-15.2) gm/dl Hct 46.4 H (35.5-45.6) % MCV 86 (84-94) fl MCH 28 (28-32) pg MCHC 33 (32-34) % RDW 12.8 L (13.2-15.2) % Plt Count 211 (140-440) K/mm3 Lymph % (Auto) 23.1 (13.4-35.0) % Chase % (Auto) 8.2 H (0.0-7.3) % Eos % (Auto) 0.6 (0.0-4.3) % Baso % (Auto) 0.6 (0.0-1.8) % Lymph # 2.1 (1.2-5.4) K/mm3 Chase # 0.8 (0.0-0.8) K/mm3 Eos # 0.1 (0.0-0.4) K/mm3 Baso # 0.1 (0.0-0.1) K/mm3 Seg Neutrophils % 67.5 (40.0-70.0) % Seg Neutrophils # 6.2 (1.8-7.7) K/mm3 PT 14.3 (12.2-14.9) Sec. INR 1.10 (0.87-1.13) APTT 25.2 (24.2-36.6) Sec. Thrombin Time 17.8 (15.1-19.6) Sec. VBG pH (7.320-7.420) Sodium (137-145) mmol/L Potassium (3.6-5.0) mmol/L Chloride (98-107) mmol/L Carbon Dioxide (22-30) mmol/L Anion Gap mmol/L BUN (9-20) mg/dL Creatinine (0.8-1.5) mg/dL Estimated GFR ml/min BUN/Creatinine Ratio % Glucose (75-100) mg/dL Calcium (8.4-10.2) mg/dL Total Bilirubin (0.1-1.2) mg/dL AST (5-40) units/L ALT (7-56) units/L Alkaline Phosphatase (35-129) units/L Total Creatine Kinase 86 (55-170) units/L CK-MB (CK-2) 1.8 (0.0-4.0) ng/mL CK-MB (CK-2) Rel Index 2.0 (0-4) Troponin T 0.017 (0.00-0.029) ng/mL Total Protein (6.3-8.2) g/dL Albumin (3.9-5) g/dL Albumin/Globulin Ratio % Urine Bilirubin (Negative) Urine RBC (Auto) (0.0-6.0) /HPF 07/06/19 07/06/19 07/06/19 Range/Units 17:52 19:49 20:40 WBC (4.5-11.0) K/mm3 RBC (3.65-5.03) M/mm3 Hgb (11.8-15.2) gm/dl Hct (35.5-45.6) % MCV (84-94) fl MCH (28-32) pg MCHC (32-34) % RDW (13.2-15.2) % Plt Count (140-440) K/mm3 Lymph % (Auto) (13.4-35.0) % Chase % (Auto) (0.0-7.3) % Eos % (Auto) (0.0-4.3) % Baso % (Auto) (0.0-1.8) % Lymph # (1.2-5.4) K/mm3 Chase # (0.0-0.8) K/mm3 Eos # (0.0-0.4) K/mm3 Baso # (0.0-0.1) K/mm3 Seg Neutrophils % (40.0-70.0) % Seg Neutrophils # (1.8-7.7) K/mm3 PT (12.2-14.9) Sec. INR (0.87-1.13) APTT (24.2-36.6) Sec. Thrombin Time (15.1-19.6) Sec. VBG pH 7.415 (7.320-7.420) Sodium 122 L (137-145) mmol/L Potassium 4.3 (3.6-5.0) mmol/L Chloride 83.8 L (98-107) mmol/L Carbon Dioxide 23 (22-30) mmol/L Anion Gap 20 mmol/L BUN 26 H (9-20) mg/dL Creatinine 1.5 (0.8-1.5) mg/dL Estimated GFR > 60 ml/min BUN/Creatinine Ratio 17 % Glucose 702 H* (75-100) mg/dL Calcium 9.6 (8.4-10.2) mg/dL Total Bilirubin 0.50 (0.1-1.2) mg/dL AST 13 (5-40) units/L ALT 10 (7-56) units/L Alkaline Phosphatase 80 (35-129) units/L Total Creatine Kinase (55-170) units/L CK-MB (CK-2) (0.0-4.0) ng/mL CK-MB (CK-2) Rel Index (0-4) Troponin T (0.00-0.029) ng/mL Total Protein 8.4 H (6.3-8.2) g/dL Albumin 4.1 (3.9-5) g/dL Albumin/Globulin Ratio 1.0 % Urine Bilirubin Neg (Negative) Urine RBC (Auto) 1.0 (0.0-6.0) /HPF - EKG Data -: EKG Interpreted by Me - EKG Data 07/06/19 20:59 The EKG today shows a sinus rhythm, 83 bpm, left axis deviation, first-degree AV block, left anterior fascicular block, poor R wave progression, nonspecific interventricular conduction delay, left ventricular hypertrophy, no endorsement of chest pain, the EKG is abnormal, it is not a STEMI - Radiology Data Radiology results: image reviewed interpreted by me: Noncontrast CT scan of the brain negative for acute findings, chronic findings noted - Medical Decision Making Differential diagnosis, including but not limited to: Transient ischemic attack, intracranial lesion, diabetic retinopathy, Bladimir's paralysis Hyperosmolar state, diabetic ketoacidosis Assessment and plan: 48-year-old gentleman with NIH score of 0, resolved neurologic complaint from 3 days ago, found to have hyperglycemia, pseudohyponatremia, without anion gap acidosis. Given underlying known cardiomyopathy, we will give insulin but hold fluids. CT scan of the brain inte rpretation is pending at this time. Not a TPA candidate given resolution of symptoms, NIH score of 0. His examination at this time is not consistent with a large vessel occlusion. He has chronic poor vision at baseline in his left eye, right-sided visual acuity is intact to finger counting, color perception and reading at a close distance. We have advised admission to the medical service for further work-up and evaluation of TIA, and further management of his hyperglycemic crisis. Discussed this with the patient who verbalized understanding, who is amenable to this plan of care. We will discuss with the hospital physician once CT scan has been formally resulted Critical Care Time: Yes Critical care time in (mins) excluding proc time.: 35 Critical care attestation.: If time is entered above; I have spent that time in minutes in the direct care of this critically ill patient, excluding procedure time. ED Disposition Clinical Impression: TIA (transient ischemic attack), Hyperglycemia Disposition: [id number] OP ADMIT IP TO THIS HOSP Is pt being admited?: Yes Condition: Good Referrals: PRIMARY CARE, [Primary Care Provider] - 3-5 Days
[2019-07-06 20:56] LABS: Bilirubin,Urine NEG (Negative); Blood,Urine NEG (Negative); Color,Urine Straw (Yellow); Mucus,Urine FEW /HPF; Protein,Urine <15 mg/dL mg/dL (Negative); Urobilinogen,Urine < 2.0 mg/dL (<2.0); WBC,Urine < 1.0 /HPF (0.0-6.0)
--- NOTE | 2019-07-06 21:01 | Cat Scan Report ---
CT head/brain wo con INDICATION / CLINICAL INFORMATION: 48 years Male; Stroke symptoms. TECHNIQUE: Routine CT head without contrast. All CT scans at this location are performed using CT dos e reduction for ALARA by means of automated exposure control. COMPARISON: 01/18/2018 FINDINGS: BRAIN / INTRACRANIAL CONTENTS: Old, small branch infarct suspected in the postcentral gyral region of the MCA territory on the right. Old, small branch PICA territory infarct seen posteriorly in the cerebellar hemispheres bilaterally. Similar findings seen on prior. There may be a mild component of atrophy in the anterior temporal lobe on the right, which may be rel ated to old trauma or prior MCA infarct. I do not appreciate this finding on prior exam. Otherwise, no acute hemorrhage, mass effect, midline shift, hydrocephalus, or acute, large territori al infarct. There are [id number] areas of decreased attenuation in the white matter of the cerebral hemisph eres. These are nonspecific findings and may be related to microangiopathy (hypertension, diabetes, a therosclerosis), given the patient's age. It might be difficult to evaluate for small areas of ischem ia without diffusion imaging by MRI. CRANIOCERVICAL JUNCTION: No significant abnormality. ORBITS: No significant abnormality of visualized orbits. SINUSES / MASTOIDS: No significant abnormality the visualized paranasal sinuses or mastoid air cells. ADDITIONAL FINDINGS: None. IMPRESSION: 1. No focal mass, hemorrhage, hydrocephalus, or acute, large territorial infarct. Follow-up with diff usion imaging by MRI, as clinically warranted. Signer Name: Carmine Farr MD, III Signed: 07/06/2019 8:56 PM Workstation Name: [id number]
[2019-07-06] MEDS ORDERED: ASPIRIN 81 MG TAB CHEW PO ONE (21:33)
--- NOTE | 2019-07-06 23:00 | History and Physical Report ---
History of Present Illness History of present illness: 48-year-old man with a history of hypertension, diabetes, congestive heart failure,CVA, chronic kidney disease comes to the emergency room for evaluation. He states that 2 days ago he started having slurred speech and dysarthria, symptoms have improved .also states that his machine has been reading a sugar high at home, he ran out of 1 of his insulin, 70/30 4 days ago. Complains that his hands were tingling. In the emergency room his sugar was very elevated, he was given insulin, IV fluid, blood sugar is now improved. Patient will be admitted for rule out TIA Review Of Systems: Constitutional: no weight loss, fever, chills Ears, eyes, nose, mouth and throat: no nasal congestion, no nasal discharge, no sinus pressure, blurry vision, diplopia Neck: No neck pain or rigidity. Cardiovascular: No palpitations, chest pain Respiratory: No shortness of breath, cough Gastrointestinal: No hematochezia, abdominal pain Genitourinary : no dysuria, frequency , hematuria Musculoskeletal: no muscle ache , joint pain Integumentary: no rash, no pruritis Neurological: no parathesias, focal weakness Endocrine: no cold or heat intolerance, no polyuria or polydipsia Hematologic/Lymphatic: no easy bruising, no easy bleeding, no gland swelling Allergic/Immunologic: no urticaria, no angioedema. PAST MEDICAL HISTORY:hypertension, diabetes, CHF, recent CVA, CKD PAST SURGICAL HISTORY: None SOCIAL HISTORY: Denies alcohol, tobacco, drugs FAMILY HISTORY: Hypertension Medications and Allergies Allergies Allergy/AdvReac Type Severity Reaction Status Date / Time No Known Allergies Allergy Verified 08/02/15 11:37 Home Medications Medication Instructions Recorded Confirmed Last Taken Type AtorvaSTATin [Lipitor] 20 mg PO QHS #30 tab 01/06/19 Unknown Rx Clopidogrel [Plavix] 75 mg PO QDAY #30 tablet 01/06/19 Unknown Rx Insulin NPH/Regular [NovoLIN 70/30] 45 unit SUB-Q BIDDIAB #30 units 01/06/19 Unknown Rx Insulin Regular, Human [Novolin R] 1 dose SQ TIDAC PRN #1 vial 01/06/19 Unknown Rx Torsemide [Demadex] 20 mg PO BID@0600,1800 #60 tablet 01/06/19 Unknown Rx amLODIPine 5 mg PO DAILY #30 tab 01/06/19 Unknown Rx carvediloL [Coreg] 25 mg PO BID #60 tablet 01/06/19 Unknown Rx cloNIDine [Catapres] 0.2 mg PO BID #60 tablet 01/06/19 Unknown Rx hydrALAZINE [Apresoline TAB] 100 mg PO TID #90 tab 01/06/19 Unknown Rx Exam - Physical Exam Narrative exam: Gen. appearance: Patient lying in bed, no apparent distress HEENT: Normocephalic, atraumatic, pupils equally round and reactive to light, extraocular movement intact, and no sclericterus,. No JVD or thyromegaly or nodule,neck supple, no carotid bruit ,mucous membranes moist, no exudate or erythema Heart: S1, S2, regular rate and rhythm Lungs: Clear to auscultation bilaterally, breathing comfortable Abdomen: Positive bowel sounds, nontender, nondistended, no organomegaly Extremity: No edema, cyanosis, clubbing Skin: No rash, nodules, warm, dry Neuro: Oriented 3, cranial nerves II-12 intact, speech is fluent, motor and sensory intact - Constitutional Vitals: Temp Pulse Resp BP Pulse Ox 98.1 F 86 13 140/95 97 07/06/19 20:00 07/06/19 21:16 07/06/19 21:16 07/06/19 19:14 07/06/19 21:46 Results - Labs CBC & Chem 7: 07/06/19 17:52 07/06/19 17:52 Labs: Abnormal lab results 07/06/19 07/06/19 Range/Units 17:52 17:52 RBC 5.39 H (3.65-5.03) M/mm3 Hct 46.4 H (35.5-45.6) % RDW 12.8 L (13.2-15.2) % Loup % (Auto) 8.2 H (0.0-7.3) % Sodium 122 L (137-145) mmol/L Chloride 83.8 L (98-107) mmol/L BUN 26 H (9-20) mg/dL Glucose 702 H* (75-100) mg/dL Total Protein 8.4 H (6.3-8.2) g/dL - Imaging and Cardiology CT Scan - head: report reviewed Assessment and Plan Assessment TIA Obtain MRI of the head, carotid Doppler, echo Start aspirin, statin Do neuro checks, swallow screen Consult neurology, physical, occupational therapy Diabetes uncontrolled Check fingersticks and start insulin sliding scale Restart outpatient medications Hypertension IV hydralazine as needed for blood pressure control chronic CHF, stable Chronic renal dysfunction Stable, continue to monitor Start DVT prophylaxis
[2019-07-07] MEDS ORDERED: METOCLOPRAMIDE 10 MG TAB PO PRN (00:15)
[2019-07-07] MEDS ORDERED: MAGNESIUM HYDROXIDE (MOM) ORAL LIQD UDC PO PRN (00:15)
[2019-07-07] MEDS ORDERED: ACETAMINOPHEN 325 MG TAB PO PRN (00:15)
[2019-07-07] MEDS ORDERED: ONDANSETRON 4 MG/2 ML INJ IV PRN (00:15)
[2019-07-07] MEDS ORDERED: DEXTROSE 50% IN WATER (25GM) 50 ML SYRINGE IV PRN (00:28)
[2019-07-07] MEDS ORDERED: INSULIN GLARGINE 100 UNITS/ML SUB-Q ONE (01:00)
[2019-07-07] MEDS ORDERED: SODIUM CHLORIDE 0.45% 1000 ML 1,000 ML IV SCH (01:00)
[2019-07-07] MEDS ORDERED: ENOXAPARIN 40 MG/0.4 ML INJ SUB-Q SCH (10:00)
[2019-07-07] MEDS ORDERED: ASPIRIN 325 MG TAB PO SCH ×2 (10:00→14:49)
[2019-07-07] MEDS: INSULIN LISPRO 100 UNIT/ML SUB-Q SCH ×2 (10:52→11:42)
[2019-07-07 10:55] VITALS: BP 160/100
--- NOTE | 2019-07-07 10:56 | Vascular Lab Report ---
"DUPLEX DOPPLER ULTRASOUND CAROTID, BILATERAL INDICATION: stroke. FINDINGS: RIGHT CAROTID: No significant atherosclerotic plaque. Right CCA velocity: 95 cm/sec. Right ICA peak systolic velocity: 61 cm/sec. ICA/CCA PSV Ratio: 0.6. Right Vertebral Artery: Antegrade flow. LEFT CAROTID: No significant atherosclerotic plaque. Left CCA velocity: 79 cm/sec. Left ICA peak systolic velocity: 46 cm/sec. ICA/CCA PSV Ratio: 0.6. Left Vertebral Artery: Antegrade flow. IMPRESSION: 1. Right Internal Carotid Artery: Less than 50% diameter stenosis. 2. Left Internal Carotid Artery: Less than 50% diameter stenosis. Velocity criteria are extrapolated from diameter data as defined by the Society of Radiologists in Ul trasound Consensus Conference, Radiology 2003; 229;340-346. Degree of || ICA PSV || Plaque || ICA/CCA Stenosis (%) || (cm/sec) || estimate (%) || PSV Ratio - Normal...............<125..............None.................<2.0 - <50....................<125..............<50....................<2.0 - 50-69................125-230.........>50....................2.0-4.0 - >70 but <100....>230..............>50....................>4.0 - Near...................High, low, .....visible................variable occlusion or none - Total...................None.............visible;................N/A occlusion no lumen Signer Name: Marshall Sanchez MD Signed: 07/07/2019 10:51 AM Workstation Name: [id number]"
--- NOTE | 2019-07-07 10:58 | Magnetic Resonance Report ---
MR brain wo con INDICATION / CLINICAL INFORMATION: 48 years Male; MAIN: stroke, SLURRED SPEECH. TECHNIQUE: Multiplanar, multisequence MR images of the brain were obtained. COMPARISON: CT - 07/06/2019 FINDINGS: BRAIN / INTRACRANIAL CONTENTS: There are ischemic changes in the posterior insular cortex on the left , as well as in the cortex of the adjacent anterior parietal lobe. These findings are positive on the ADC map, suggesting they are acute/early subacute in age. There may be minimal involvement of the ad jacent precentral gyrus on the left as well. Findings appear to be concentrated within cortex with re lative sparing of the adjacent white matter, which suggest blood flow demand to this region may be li mited, supplying metabolic needs for white matter, but not watt matter. MRA of the brain may be helpf ul for further evaluation to evaluate for stenoses in the left MCA region. There may be a small focus of ischemia rightward of midline in the tunde as well. This finding would r aise the question of embolic phenomenon. Old, branch PICA infarcts seen bilaterally. Lacunar infarcts seen in the tunde rightward of midline. Old branch MCA infarct seen in the postcentral gyral region on the right. Encephalomalacia seen in the anterior temporal lobe on the right, which may be related to prior traum a or perhaps branch MCA infarct. Otherwise, no acute hemorrhage, mass effect, midline shift, hydrocephalus, or acute, large territori al infarct. No chronic infarct or atrophy. There are moderate and somewhat confluent areas of increased signal intensity on FLAIR imaging in the white matter of the cerebral hemispheres. These are nonspecific findings and may be related to micro angiopathy (hypertension, diabetes, atherosclerosis), given the patient's age. These findings are dimitris rly prominent for patient's age. Other etiologies such as vasculitis, subcortical arteriosclerotic en cephalopathy, etc. might be considered. CRANIOCERVICAL JUNCTION: No significant abnormality. VASCULAR FLOW-VOIDS: No significant abnormality. ORBITS: No significant abnormality of visualized orbits. SINUSES / MASTOIDS: Mucosal thickening seen in the ethmoids. Mild to moderate mucosal thickening also noted in the mastoids. ADDITIONAL FINDINGS: None. IMPRESSION: 1. Ischemic changes as described above in detail. Embolic phenomenon might be consideration. MRA of t he brain would also be helpful for further evaluation given the findings in the left cerebral hemisph ere. 2. Fairly significant white matter disease identified, as described above. 3. Otherwise, no focal mass, hemorrhage, hydrocephalus, or acute, large territorial infarct seen. Signer Name: Carmine Farr MD, III Signed: 07/07/2019 10:53 AM Workstation Name: [id number]
--- NOTE | 2019-07-07 14:12 | Magnetic Resonance Report ---
MRA HEAD WITHOUT CONTRAST HISTORY: Cerebrovascular accident. COMPARISON: MRI brain also dated 07/07/2019 TECHNIQUE: Routine MRA of the head performed. 3-D/MIP reformats postprocessed. CONTRAST: none FINDINGS: MRA HEAD: Intracranial vertebral arteries: There is mild dominance of the left vertebral artery. Both vertebral arteries contribute to the basilar artery origin. Basilar artery: Basilar artery has an unremarkable appearance. Posterior cerebral arteries: Posterior cerebral arteries have a mildly irregular appearance bilateral ly. In addition there is evidence of moderate stenosis along the expected location of the proximal P3 segment of the left posterior cerebral artery. Intracranial internal carotid arteries: Irregularity of caliber of the cavernous segments of the inte rnal carotid arteries may reflect presence of intercranial atherosclerotic disease. Anterior cerebral arteries: No significant abnormality. Middle cerebral arteries: There is a beaded appearance to the M1 segment of the left middle cerebral artery. Similar findings are seen in the proximal M2 segments of both middle cerebral arteries. In ad dition a high-grade stenosis is seen in distal insular branch of the left middle cerebral artery. Thi s may reflect the sequelae of intercranial atherosclerotic disease but would be an unusual finding in a 48-year-old individual. Possibility of vasculitis could be considered. IMPRESSION: 1. Multifocal stenosis along the M1 segment and insular branches of the left middle cerebral artery a s described above. Signer Name: Robby Campbell MD Signed: 07/07/2019 2:08 PM Workstation Name: [id number]
--- NOTE | 2019-07-07 14:52 | Discharge Summary ---
Providers - Providers Date of Admission: 07/06/19 22:55 Date of discharge: 07/07/19 Attending physician: DAYANARA SCHUMACHER 07/07/19 Consult to Physician [CONS] Routine Comment: Consulting Provider: BETSEY HUNT Physician Instructions: Reason For Exam: tia 07/07/19 00:15 Occupational Therapy Evaluate and Treat [CONS] Routine Comment: Reason For Exam: Neuro deficits Physical Therapy Evaluation and Treat [CONS] Routine Comment: Reason For Exam: Neuro deficits Primary care physician: REGULATORY COMPLIANCE SPECIALIST Hospitalization Condition: Good Hospital course: Patient is a 48 y/o man w/ a h/o stroke w/ no residual deficits, CHF, DM, HTN, CKD, HLD, who presented with difficulty speaking. He was admitted with a stroke protocol for further evaluation and management. His work-up showed following findings: - MRI brain: Left MCA territory stroke noted - MRA head: left m1 stenosis. - CUS: No significant stenosis - CT head: no acute abnormality. - Echo: EF 30-35%, LA normal size, bubble study negative. -Given left MCA stenosis, neurology recommended dual antiplatelet therapy with aspirin 81 mg daily and Plavix 75 mg daily for 90 days, after which Aspirin can be stopped. Discussed risks and benefits of dual antiplatelet therapy with patient, and patient agreed to take this. - Cont. statin. LDL goal <70. Increase atorvastatin dose to 40 mg MG nightly -Patient was then discharged home in stable condition with outpatient follow-up Discharge diagnosis: Acute CVA Diabetes uncontrolled Hypertension chronic CHF, stable Chronic renal disease Disposition: - TO HOME OR SELFCARE Time spent for discharge: 34 minutes Core Measure Documentation - Palliative Care Palliative Care/ Comfort Measures: Not Applicable - Core Measures Any of the following diagnoses?: none Exam - Constitutional Vitals: Temp Pulse Resp BP Pulse Ox 98.5 F 71 18 160/100 98 07/07/19 10:51 07/07/19 10:51 07/07/19 10:51 07/07/19 10:51 07/07/19 10:51 General appearance: Present: no acute distress, well-nourished - EENT Eyes: Present: PERRL ENT: hearing intact, clear oral mucosa - Neck Neck: Present: supple, normal ROM - Respiratory Respiratory effort: normal Respiratory: bilateral: CTA - Cardiovascular Heart Sounds: Present: S1 & S2. Absent: rub, click - Extremities Extremities: pulses symmetrical, No edema Peripheral Pulses: within normal limits - Abdominal General gastrointestinal: Present: soft, non-tender, non-distended, normal bowel sounds - Integumentary Integumentary: Present: clear, warm, dry - Musculoskeletal Musculoskeletal: gait normal, strength equal bilaterally - Psychiatric Psychiatric: appropriate mood/affect, intact judgment & insight - Neurologic Neurologic: CNII-XII intact, moves all extremities Plan Activity: advance as tolerated Weight Bearing Status: Weight Bear as Tolerated Diet: low fat, low salt, diabetic Additional Instructions: F/u with watch crystal cutter for loop recording/event monitor. Follow up with: PRIMARY CARE, [Primary Care Provider] - 3-5 Days Prescriptions: AtorvaSTATin [Lipitor] 40 mg PO QHS #30 tab amLODIPine 5 mg PO DAILY #30 tab Aspirin 81 mg PO QDAY #30 tablet cloNIDine [Catapres] 0.2 mg PO BID #60 tablet carvediloL [Coreg] 25 mg PO BID #60 tablet Torsemide [Demadex] 20 mg PO BID@0600,1800 #60 tablet Insulin NPH/Regular [NovoLIN 70/30] 45 unit SUB-Q BIDDIAB #30 units Insulin Regular, Human [Novolin R] 1 dose SQ TIDAC PRN #1 vial PRN Reason: Hyperglycemia Clopidogrel [Plavix] 75 mg PO QDAY #30 tablet
[2019-07-07 15:50] LABS: Chol/HDL Ratio 6.03 %
[2019-07-07 16:09] LABS: Calcium 9.3 mg/dL (8.4-10.2)
--- NOTE | 2019-07-07 19:41 | Consultation ---
History of Present Illness Consult date: 07/07/19 Reason for Consult: Difficulty speaking Chief complaint: Difficulty speaking History of present illness: Patient is a 48 y/o man w/ a h/o stroke w/ no residual deficits, CHF, DM, HTN, CKD, HLD. Patient began having difficulty speaking 4 days ago. He called EMS, and was evaluated, however they did not feel that he was having a stroke. He states that his symptoms had improved by the time they arrived. However, his sy mptoms had waxed and waned over the past 3-4 days. He states that he was previously on plavix at home, however had ran out of this medication about 1-2 weeks ago. Patient states that he currently continues to have some difficulty with speech, in that it is not as fluent as it usually is. Past History Past Medical History: other (h/o stroke w/ no residual deficits, CHF, DM, HTN, CKD, HLD) Social history: no significant social history Family history: no significant family history Medications and Allergies Allergies Allergy/AdvReac Type Severity Reaction Status Date / Time No Known Allergies Allergy Verified 08/02/15 11:37 Home Medications Medication Instructions Recorded Confirmed Last Taken Type hydrALAZINE [Apresoline TAB] 100 mg PO TID #90 tab 01/06/19 07/07/19 Unknown Rx Aspirin 81 mg PO QDAY #30 tablet 07/07/19 Unknown Rx AtorvaSTATin [Lipitor] 20 mg PO QHS #30 tab 07/07/19 Unknown Rx Clopidogrel [Plavix] 75 mg PO QDAY #30 tablet 07/07/19 Unknown Rx Insulin NPH/Regular [NovoLIN 70/30] 45 unit SUB-Q BIDDIAB #30 units 07/07/19 Unknown Rx Insulin Regular, Human [Novolin R] 1 dose SQ TIDAC PRN #1 vial 07/07/19 Unknown Rx Torsemide [Demadex] 20 mg PO BID@0600,1800 #60 tablet 07/07/19 Unknown Rx amLODIPine 5 mg PO DAILY #30 tab 07/07/19 Unknown Rx carvediloL [Coreg] 25 mg PO BID #60 tablet 07/07/19 Unknown Rx cloNIDine [Catapres] 0.2 mg PO BID #60 tablet 07/07/19 Unknown Rx Review of Systems All systems: negative Neurological: change in speech Physical Examination - Vital Signs Vital Signs: Vital Signs Temp Pulse Resp BP Pulse Ox 98.1 F 92 H 20 190/111 97 07/06/19 16:54 07/06/19 16:54 07/06/19 16:54 07/06/19 16:54 07/06/19 16:54 - Physical Exam Narrative exam: Patient is alert, awake, oriented x4, follows complex commands. No dysarthria. Mild aphasia noted. PERRL, EOMI, VFF in right eye, baseline of left eye blindness, tongue midline, bilaterally mntact to LT, no facial weakness noted. 5/5 strength in all extremities. Bilaterally intact light touch. Bilaterally intact to FTN and HTS. 2+ reflexes throughout. - Constitutional General appearance: comfortable - EENT EENT: Present: ATNC, mucous membranes moist - Respiratory Respiratory: Present: lungs clear, normal breath sounds - Cardiovascular Cardiovascular: Present: regular rate, normal S1, normal S2 Extremities: Present: no clubbing, cyanosis, no inflammation - Gastrointestinal Gastrointestinal: Present: normoactive bowel sounds, soft, non-tender - Integumentary Integumentary: Present: normal - Musculoskeletal Musculoskeletal: Present: no fluid collection, no pain - Psychiatric Psychiatric: Present: mood/affect appropriate - Level of Consciousness 1a. Level of Consciousness: alert/keenly responsive - LOC Questions 1b. LOC Questions: answers both correctly - LOC Command 1c. LOC Commands: performs tasks correctly - Best Gaze 2. Best Gaze: normal - Visual 3. Visual: no visual loss - Facial Palsy 4. Facial Palsy: normal symmetrical movement - Motor Arm 5a. Motor Arm Left: no drift 5b. Motor Arm Right: no drift - Motor Leg 6a. Motor Leg Left: no drift 6b. Motor Leg Right: no drift - Limb Ataxia 7. Limb Ataxia: absent - Sensory 8. Sensory: normal - Best Language 9. Best Language: mild/moderate aphasia - Dysarthria 10. Dysarthria: normal - Extinction and Inattention 11. Extinction/Inattention: no abnormality - Scoring Total Score: 1 Stroke Severity: Minor Stroke Results - Laboratory Findings CBC and BMP: 07/06/19 17:52 07/07/19 14:35 Abnormal Lab Findings: Abnormal Labs 07/06/19 07/06/19 07/07/19 17:52 17:52 11:49 RBC 5.39 H Hct 46.4 H RDW 12.8 L Ed[place]on % (Auto) 8.2 H Sodium 122 L Chloride 83.8 L BUN 26 H Creatinine Glucose 702 H* POC Glucose 259 H Total Protein 8.4 H Triglycerides LDL Cholesterol Direct HDL Cholesterol 07/07/19 07/07/19 14:35 14:35 RBC Hct RDW Ed[place]on % (Auto) Sodium 128 L Chloride 90.1 L BUN 26 H Creatinine 1.6 H Glucose 443 H POC Glucose Total Protein Triglycerides 221 H LDL Cholesterol Direct 139 H HDL Cholesterol 33 L Assessment and Plan Patient is a 48 y/o man w/ a h/o stroke w/ no residual deficits, CHF, DM, HTN, CKD, HLD, who presents with difficulty speaking. According to the patient's clinical findings, he has had an acute ischemic stroke. Plan: 1. Stroke: - MRI brain: Left MCA territory stroke noted - MRA head: left m1 stenosis. - CUS: No significant stenosis - CT head: no acute abnormality. - Echo: EF 30-35%, LA normal size, bubble study negative. -Given left MCA stenosis, recommend dual antiplatelet therapy with aspirin 81 mg daily and Plavix 75 mg daily for 90 days, after which Aspirin can be stopped. Discussed risks and benefits of dual antiplatelet therapy with patient, and patient agreed to take this. - Cont. statin. LDL goal <70 - Telemetry monitoring while in house - PT/OT/ST - DVT Ppx: Recommend lovenox 2. Hypertension: - Recommend BP goal of normotension. - Will sign off. Please call with any questions. Thank you for allowing me to take part in the care of this patient. Vitor Montes De Oca MD Neurology
[2019-07-08] MEDS ORDERED: ASPIRIN 81 MG TAB CHEW PO SCH (10:00)
== END 2019-07-07 16:03 | disposition home or self-care (01) ==
LOC: ED 16:38 → 3A 22:55 → INTOOBSV 22:55 → 4A 07-07 00:35
PROVIDERS: ADMIT Internal Medicine; ATTEND Internal Medicine
DX: G45.9 Transient cerebral ischemic attack, unspecified (principal); E11.65 Type 2 diabetes mellitus with hyperglycemia; I13.0 Hypertensive heart and chronic kidney disease with heart failure and stage 1 through stage 4 chronic kidney disease, or unspecified chronic kidney disease; E11.22 Type 2 diabetes mellitus with diabetic chronic kidney disease; N18.9 Chronic kidney disease, unspecified; E78.5 Hyperlipidemia, unspecified; Z86.73 Personal history of transient ischemic attack (TIA), and cerebral infarction without residual deficits; Z79.4 Long term (current) use of insulin; Z79.899 Other long term (current) drug therapy
CPT/HCPCS: 36415; 70450; 70544; 70551; 80048; 80053; 80061; 81001; 82550; 82553; 82805; 82962; 83735; 84484; 85025; 85610; 85670; 85730; 87116; 93005; 93010; 93306; 93880; 96361; 96372; 96374; 97161; 99291; G0378; J1650; J7030; J1815

== ENCOUNTER 2021-05-15 18:15 | Inpatient (IN) | payer MEDICARE, OTHER ==
[2021-05-15] MEDS ORDERED: IPRATROPIUM/ALBUTEROL SULFATE 3 ML AMPUL.NEB IH ONE (19:22)
--- NOTE | 2021-05-15 19:24 | Emergency Department Report ---
Blank Doc - Documentation Documentation: Pt seen as part of mse process. he c/o dyspnea for 3-4d. Has dry cough. Pt reports h/o chf. Still taking diuretics. RRR Wheeze w rales on exam. Labs and XR ordered.
--- NOTE | 2021-05-15 19:49 | XRay Report ---
CHEST 2 VIEWS INDICATION: sob. COMPARISON: 07/24/2019 FINDINGS: SUPPORT DEVICES: None. HEART: Stable cardiomegaly. LUNGS/PLEURA: Mild streaky airspace disease greatest in the lung bases. No dense consolidation or eff usion. No pneumothorax. ADDITIONAL FINDINGS: None. IMPRESSION: 1. Lung findings as above. Signer Name: Gume Dominguez MD Signed: 05/15/2021 7:45 PM Workstation Name: [id number]
[2021-05-15 20:21] LABS: Basophils # (Auto) 0.1 K/mm3 (0.0-0.1); Basophils % (Auto) 1.2 % (0.0-1.8); Eosinophils # (Auto) 0.1 K/mm3 (0.0-0.4); Eosinophils % (Auto) 1.3 % (0.0-4.3); Hematocrit 36.9 % (35.5-45.6); Hemoglobin 11.8 gm/dl (11.8-15.2); Lymphocytes # (Auto) 2.4 K/mm3 (1.2-5.4); Lymphocytes % (Auto) 38.5 % (13.4-35.0); Mean Corpuscular HGB Conc 32 % (32-34); Mean Corpuscular Volume 85 fl (84-94); Monocytes # (Auto) 0.9 K/mm3 (0.0-0.8); Monocytes % (Auto) 13.9 % (0.0-7.3); Platelet Count 218 K/mm3 (140-440); Red Blood Count 4.33 M/mm3 (3.65-5.03); Red Cell Distribution Width 13.5 % (13.2-15.2)
[2021-05-15 20:27] LABS: Calcium 9.1 mg/dL (8.4-10.2)
[2021-05-15] MEDS ORDERED: ASPIRIN 81 MG TAB CHEW PO ONE (20:46)
[2021-05-15 21:04] LABS: Chol/HDL Ratio 4.32 %
[2021-05-15] MEDS ORDERED: FUROSEMIDE 20 MG/2 ML INJ IV ONE (21:09)
--- NOTE | 2021-05-15 21:09 | Emergency Department Report ---
HPI - General Chief Complaint: Dyspnea/Respdistress Time Seen by Provider: 05/15/21 19:27 - HPI HPI: 50-year-old -[place] male presents to the emergency department with a 1 week history of shortness of breath that worsens with exertion and when laying flat. It is associated with an occasional mixed dry and productive cough. He denies any chest pain or any significant lower extremity swelling. He has a past medical history that includes dilated nonischemic cardiomyopathy, ldn-sptmpzc-cljepfsky diabetes, hypertension, CHF, TIA. He has not taken anything for symptoms prior to presentation. No recent travel or sick contacts at home. He follows with [facility] for primary care and denies having a varnisher apprentice. He denies any tobacco or illicit drug use. ED Past Medical Hx - Past Medical History Previous Medical History?: Yes Hx Hypertension: Yes Hx CVA: Yes (TIA appx 07/13/19, CVA appx 07/17/19) Hx Heart Attack/AMI: No Hx Congestive Heart Failure: Yes Hx Diabetes: Yes Hx Deep Vein Thrombosis: No Hx Renal Disease: Yes Hx Asthma: No Hx COPD: No Hx HIV: No Additional medical history: OBESITY - Surgical History Hx Coronary Stent: No Hx Pacemaker: No Hx Internal Defibrillator: No Additional Surgical History: incision and drainage rectal area. - Social History Smoking Status: Never Smoker Substance Use Type: None - Medications Home Medications: Home Medications Medication Instructions Recorded Confirmed Last Taken Type hydrALAZINE [Apresoline TAB] 100 mg PO TID #90 tab 01/06/19 07/07/19 Unknown Rx Aspirin 81 mg PO QDAY #30 tablet 07/07/19 Unknown Rx Clopidogrel [Plavix] 75 mg PO QDAY #30 tablet 07/07/19 Unknown Rx Insulin NPH/Regular [NovoLIN 70/30] 45 unit SUB-Q BIDDIAB #30 units 07/07/19 Unknown Rx Insulin Regular, Human [Novolin R] 1 dose SQ TIDAC PRN #1 vial 07/07/19 Unknown Rx Torsemide [Demadex] 20 mg PO BID@0600,1800 #60 tablet 07/07/19 Unknown Rx amLODIPine 5 mg PO DAILY #30 tab 07/07/19 Unknown Rx carvediloL [Coreg] 25 mg PO BID #60 tablet 07/07/19 Unknown Rx cloNIDine [Catapres] 0.2 mg PO BID #60 tablet 07/07/19 Unknown Rx AtorvaSTATin [Lipitor] 40 mg PO QHS #30 tab 07/09/19 Unknown Rx Acetaminophen [Tylenol] 500 mg PO Q6HR PRN #30 tablet 07/25/19 Unknown Rx methOCARBAMOL [Robaxin TAB] 750 mg PO Q8H PRN #24 tablet 07/25/19 Unknown Rx traMADoL [Ultram] 50 mg PO Q6HR PRN #12 tablet 07/25/19 Unknown Rx ED Review of Systems ROS: Stated complaint: ANNELIESE Other details as noted in HPI Comment: All other systems reviewed and negative Constitutional: denies: chills, fever Eyes: denies: eye pain, vision change ENT: denies: ear pain, throat pain Respiratory: cough, orthopnea, shortness of breath, SOB with exertion Cardiovascular: denies: chest pain, edema Gastrointestinal: denies: abdominal pain, vomiting Genitourinary: denies: dysuria, discharge Musculoskeletal: denies: back pain, arthralgia Skin: denies: rash, lesions Neurological: denies: headache, weakness Physical Exam - Physical Exam Physical Exam: GENERAL: The patient is well-developed well-nourished. HENT: Normocephalic. Atraumatic. Patient has moist mucous membranes. EYES: Extraocular motions are intact. NECK: Supple. Trachea is midline. CHEST/LUNGS: Mild coarse breath sounds and expiratory wheezing. Mild tachypnea but no accessory muscle use. HEART/CARDIOVASCULAR: Regular. There is no tachycardia. There is no murmur. ABDOMEN: Abdomen is soft, nontender. Patient has normal bowel sounds. SKIN: Skin is warm and dry. NEURO: The patient is awake, alert, and oriented. The patient is cooperative. The patient has no focal neurologic deficits. Normal speech. MUSCULOSKELETAL: There is no tenderness or deformity. There is no limitation r danielle of motion. ED Course - Consultations Consultation #1: 05/15/21 23:04 I spoke to the varnisher apprentice on-call, Dr. Morales. We discussed the patient's presentation, cardiac history, elevated troponin level. As the patient does not have any chest pain, he does not feel that the patient requires heparin at this time. They will consult on the patient. ED Medical Decision Making - Lab Data Result diagrams: 05/15/21 19:46 05/15/21 19:46 Lab Results 05/15/21 05/15/21 05/15/21 Range/Units 19:46 19:46 21:59 WBC 6.3 (4.5-11.0) K/mm3 RBC 4.33 (3.65-5.03) M/mm3 Hgb 11.8 (11.8-15.2) gm/dl Hct 36.9 (35.5-45.6) % MCV 85 (84-94) fl MCH 27 L (28-32) pg MCHC 32 (32-34) % RDW 13.5 (13.2-15.2) % Plt Count 218 (140-440) K/mm3 Lymph % (Auto) 38.5 H (13.4-35.0) % Harney % (Auto) 13.9 H (0.0-7.3) % Eos % (Auto) 1.3 (0.0-4.3) % Baso % (Auto) 1.2 (0.0-1.8) % Lymph # (Auto) 2.4 (1.2-5.4) K/mm3 Harney # (Auto) 0.9 H (0.0-0.8) K/mm3 Eos # (Auto) 0.1 (0.0-0.4) K/mm3 Baso # (Auto) 0.1 (0.0-0.1) K/mm3 Seg Neutrophils % 45.1 (40.0-70.0) % Seg Neutrophils # 2.8 (1.8-7.7) K/mm3 Sodium 141 (137-145) mmol/L Potassium 3.6 (3.6-5.0) mmol/L Chloride 104.5 (98-107) mmol/L Carbon Dioxide 22 (22-30) mmol/L Anion Gap 18 mmol/L BUN 24 H (9-20) mg/dL Creatinine 1.7 H (0.8-1.3) mg/dL Estimated GFR 52 ml/min BUN/Creatinine Ratio 14 % Glucose 72 L (75-100) mg/dL Calcium 9.1 (8.4-10.2) mg/dL Troponin T 0.115 H* 0.117 H* (0.00-0.029) ng/mL NT-Pro-B Natriuret Pep 8769 H (0-900) pg/mL Triglycerides 101 (2-149) mg/dL Cholesterol 121 (50-199) mg/dL LDL Cholesterol Direct 82 (50-130) mg/dL HDL Cholesterol 28 L (40-59) mg/dL Cholesterol/HDL Ratio 4.32 % - EKG Data -: EKG Interpreted by Me EKG shows normal: sinus rhythm, axis (Left axis deviation), intervals (Prolonged MA interval), QRS complexes (Q waves to the anteroseptal leads, LVH), ST-T waves (T wave inversions to the lateral leads) Rate: normal - EKG Data When compared to previous EKG there are: no significant change Interpretation: unchanged when compared t (07/06/19) - Radiology Data Radiology results: report reviewed CHEST 2 VIEWS INDICATION: sob. COMPARISON: 07/24/2019 FINDINGS: SUPPORT DEVICES: None. HEART: Stable cardiomegaly. LUNGS/PLEURA: Mild streaky airspace disease greatest in the lung bases. No dense consolidation or effusion. No pneumothorax. ADDITIONAL FINDINGS: None. IMPRESSION: 1. Lung findings as above. - Medical Decision Making This patient presents with a 1 week history of progressively worsening shortness of breath that also worsens with exertion and with laying flat. On examination he has some mild rales and wheezing with mild tachypnea. No accessory muscle use and the patient does not appear in respiratory distress. Vital signs reassuring throughout his ED course thus far including being afebrile. EKG does not have any morphology consistent with ST elevation myocardial infarction. The patient's labs are remarkable for mild renal insufficiency with a GFR of about 50, elevated BNP of greater than 8000, and a troponin of 0.115. Patient h as been given a DuoNeb breathing treatment, full dose aspirin and a dose of IV Lasix. Cardiology was contacted and consulted but does not require heparin for this NSTEMI. They will consult on the patient. Patient has been accepted for admission by the hospitalist, Dr. Blake. Critical Care Time: Yes Critical care time in (mins) excluding proc time.: 35 Critical care attestation.: If time is entered above; I have spent that time in minutes in the direct care of this critically ill patient, excluding procedure time. Critical care time was spent on this patient in doing his initial evaluation, multiple reevaluations, ordering interpretation of labs and imaging, IV Lasix for diuresis, DuoNeb breathing treatment for mild bronchospasm, full dose aspirin as treatment of his NSTEMI, discussion with the cardiology and hospitalist services. Critical Care Time: 35 minutes ED Disposition Clinical Impression: NSTEMI (non-ST elevated myocardial infarction), Mild renal insufficiency CHF (congestive heart failure) Qualifiers: Heart failure type: unspecified Heart failure chronicity: unspecified Qualified Code(s): I50.9 - Heart failure, unspecified Disposition: 09 ADMITTED INPATIENT Is pt being admited?: Yes Condition: Serious Time of Disposition: 23:08
[2021-05-15] MEDS ORDERED: NITROGLYCERIN 0.4 MG TAB SUBL SL PRN (22:35)
[2021-05-15] MEDS ORDERED: MORPHINE 4 MG/1 ML INJ IV PRN ×2 (22:35)
[2021-05-15] MEDS ORDERED: MAGNESIUM HYDROXIDE (MOM) ORAL LIQD UDC PO PRN (22:35)
[2021-05-15] MEDS ORDERED: MORPHINE 2 MG/1 ML INJ IV PRN (22:35)
[2021-05-15] MEDS ORDERED: traMADol 50 MG TAB PO PRN (22:35)
[2021-05-15] MEDS ORDERED: ONDANSETRON 4 MG/2 ML INJ IV PRN (22:35)
[2021-05-15] MEDS ORDERED: ACETAMINOPHEN 325 MG TAB PO PRN ×2 (22:35)
[2021-05-15] MEDS ORDERED: DEXTROSE 50% IN WATER (25GM) 50 ML SYRINGE IV PRN (22:43)
--- NOTE | 2021-05-15 22:51 | History and Physical Report ---
History of Present Illness Date of examination: 05/15/21 Date of admission: 05/15/2021 Chief complaint: Shortness of breath History of present illness: 50-year-old -[place] male with known history of hypertension, nonischemic dilated cardiomyopathy, diabetes mellitus, CHF and TIAs in the past presents to the emergency room today complaining of shortness of breath which has been ongoing for the past few days. Shortness of breath is said to be worse on exertion. He has also had some intermittent cough which is occasionally productive. He denies any fever or chills, no chest pain, no headache or dizziness, no diaphoresis. Patient also indicates that he has been having orthopnea. Patient denies any sick contacts and no recent travel. Denies any contact with anyone with COVID-19. He follows up at [facility] but does not have a landscape manager. Work-up in the emergency room today, pertinent findings BUN of 24 and creatinine of 1.7. Troponin was 0.115, BNP 8769, chest x-ray shows mild streaky airspace disease greatest in the lung bases no dense consolidation or effusion. EKG shows sinus rhythm, T wave inversion in the lateral leads, no acute findings. Patient's condition and findings were communicated to the on-call landscape manager. No heparin recommended at this time. Past History Past Medical History: diabetes, heart failure, hypertension, renal failure, stroke (Yes (TIA appx 07/13/19, CVA appx 07/17/19)), other (Obesity) Past Surgical History: Other (: incision and drainage rectal area.) Social history: no significant social history Family history: no significant family history Medications and Allergies Allergies Allergy/AdvReac Type Severity Reaction Status Date / Time No Known Allergies Allergy Verified 08/02/15 11:37 Home Medications Medication Instructions Recorded Confirmed Last Taken Type hydrALAZINE [Apresoline TAB] 100 mg PO TID #90 tab 01/06/19 07/07/19 Unknown Rx Aspirin 81 mg PO QDAY #30 tablet 07/07/19 Unknown Rx Clopidogrel [Plavix] 75 mg PO QDAY #30 tablet 07/07/19 Unknown Rx Insulin NPH/Regular [NovoLIN 70/30] 45 unit SUB-Q BIDDIAB #30 units 07/07/19 Unknown Rx Insulin Regular, Human [Novolin R] 1 dose SQ TIDAC PRN #1 vial 07/07/19 Unknown Rx Torsemide [Demadex] 20 mg PO BID@0600,1800 #60 tablet 07/07/19 Unknown Rx amLODIPine 5 mg PO DAILY #30 tab 07/07/19 Unknown Rx carvediloL [Coreg] 25 mg PO BID #60 tablet 07/07/19 Unknown Rx cloNIDine [Catapres] 0.2 mg PO BID #60 tablet 07/07/19 Unknown Rx AtorvaSTATin [Lipitor] 40 mg PO QHS #30 tab 07/09/19 Unknown Rx Acetaminophen [Tylenol] 500 mg PO Q6HR PRN #30 tablet 07/25/19 Unknown Rx methOCARBAMOL [Robaxin TAB] 750 mg PO Q8H PRN #24 tablet 07/25/19 Unknown Rx traMADoL [Ultram] 50 mg PO Q6HR PRN #12 tablet 07/25/19 Unknown Rx Active Meds: Active Medications Acetaminophen (Acetaminophen 325 Mg Tab) 650 mg PO Q4H PRN PRN Reason: Pain MILD(1-3)/Fever >100.5/SANTANA Acetaminophen (Acetaminophen 325 Mg Tab) 650 mg PO Q6H PRN PRN Reason: Pain, Mild (1-3) Aspirin (Aspirin Ec 325 Mg Tab) 325 mg PO QDAY MARIBEL Dextrose (Dextrose 50% In Water (25gm) 50 Ml Syringe) 50 ml IV Q30MIN PRN; Protocol PRN Reason: Hypoglycemia Furosemide (Furosemide 20 Mg Tab) 20 mg PO BID@0600,1800 MARIBEL Insulin Human Lispro (Insulin Lispro 100 Unit/Ml) 0 unit SUB-Q ACHS MARIBEL; Protocol Magnesium Hydroxide (Magnesium Hydroxide (Mom) Oral Liqd Udc) 30 ml PO Q4H PRN PRN Reason: Constipation Morphine Sulfate (Morphine 2 Mg/1 Ml Inj) 2 mg IV Q4H PRN PRN Reason: Pain, Moderate (4-6) Morphine Sulfate (Morphine 4 Mg/1 Ml Inj) 4 mg IV Q4H PRN PRN Reason: Pain , Severe (7-10) Morphine Sulfate (Morphine 4 Mg/1 Ml Inj) 2 mg IV Q5MIN PRN PRN Reason: Chest Pain unrelieved by NTG Nitroglycerin (Nitroglycerin 0.4 Mg Tab Subl) 0.4 mg SL Q5M PRN PRN Reason: Chest Pain Ondansetron HCl (Ondansetron 4 Mg/2 Ml Inj) 4 mg IV Q8H PRN PRN Reason: Nausea And Vomiting Sodium Chloride (Sodium Chloride 0.9% 10 Ml Flush Syringe) 10 ml IV BID MARIBEL Sodium Chloride (Sodium Chloride 0.9% 10 Ml Flush Syringe) 10 ml IV PRN PRN PRN Reason: LINE FLUSH Sodium Chloride (Sodium Chloride 0.9% 10 Ml Flush Syringe) 10 ml IV PRN PRN PRN Reason: LINE FLUSH Tramadol HCl (Tramadol 50 Mg Tab) 50 mg PO Q6H PRN PRN Reason: Pain, Moderate (4-6) Review of Systems Constitutional: no fever, no chills Ears, nose, mouth and throat: no nasal congestion, no sore throat Cardiovascular: dyspnea on exertion, no chest pain, no palpitations Respiratory: cough with sputum Gastrointestinal: no nausea, no vomiting, no diarrhea Genitourinary Male: no dysuria, no hematuria, no flank pain Musculoskeletal: no neck pain, no low back pain Integumentary: no rash, no pruritis Neurological: no headaches, no confusion Psychiatric: no anxiety, no depression Endocrine: no polyphagia, no polydipsia, no polyuria, no nocturia Exam - Constitutional Vitals: Temp Pulse Resp BP Pulse Ox 70 20 144/95 100 05/15/21 21:45 05/15/21 21:45 05/15/21 21:45 05/15/21 21:45 General appearance: Present: no acute distress, well-nourished - EENT Eyes: Present: PERRL, EOM intact. Absent: scleral icterus ENT: hearing intact, clear oral mucosa, dentition normal - Neck Neck: Present: supple, normal ROM - Respiratory Respiratory effort: normal Respiratory: bilateral: CTA - Cardiovascular Rhythm: regular Heart Sounds: Present: S1 & S2. Absent: gallop, systolic murmur, diastolic murmur, rub, click - Extremities Extremities: no ischemia, pulses intact, pulses symmetrical, No edema, normal temperature, Full ROM Peripheral Pulses: within normal limits - Abdominal General gastrointestinal: Present: soft, non-tender, non-distended, normal bowel sounds. Absent: mass - Integumentary Integumentary: Present: clear, warm, dry, normal turgor. Absent: rash - Musculoskeletal Musculoskeletal: strength equal bilaterally - Psychiatric Psychiatric: appropriate mood/affect, intact judgment & insight, memory intact, cooperative - Neurologic Neurologic: CNII-XII intact, no focal deficits, moves all extremities HEART Score - HEART Score History: Moderately suspicious EKG: Non-specific Age: 45-65 Risk factors: > 3 risk factors or hx of atherosclerotic disease Troponin: Troponin T 0.117 ng/mL (0.00-0.029) H* 05/15/21 21:59 Troponin: 1-3x normal limit HEART Score: 6 Results - Labs CBC & Chem 7: 05/15/21 19:46 05/15/21 19:46 Labs: Abnormal lab results 05/15/21 05/15/21 05/15/21 Range/Units 19:46 19:46 21:59 MCH 27 L (28-32) pg Lymph % (Auto) 38.5 H (13.4-35.0) % [place] % (Auto) 13.9 H (0.0-7.3) % [place] # (Auto) 0.9 H (0.0-0.8) K/mm3 BUN 24 H (9-20) mg/dL Creatinine 1.7 H (0.8-1.3) mg/dL Glucose 72 L (75-100) mg/dL Troponin T 0.115 H* 0.117 H* (0.00-0.029) ng/mL NT-Pro-B Natriuret Pep 8769 H (0-900) pg/mL HDL Cholesterol 28 L (40-59) mg/dL Assessment and Plan - Patient Problems (1) NSTEMI (non-ST elevated myocardial infarction) Current Visit: Yes Status: Acute Plan to address problem: Patient admitted and placed on telemetry. We will monitor cardiac enzymes. Patient placed on daily aspirin, sublingual nitroglycerin and IV morphine as needed for chest pain. Cardiology evaluation requested. (2) CHF (congestive heart failure) Current Visit: Yes Status: Chronic Plan to address problem: Patient will be commenced on diuretics and will monitor inputs and outputs and also monitor daily weight. Encouraged on low-sodium diet. (3) Dilated cardiomyopathy Current Visit: No Status: Acute Plan to address problem: Ejection fraction in June 2019 was 30 to 35%. We will schedule for echocardiogram and await further evaluation by cardiology. (4) Renal insufficiency Current Visit: No Status: Acute Plan to address problem: Possibly chronic. WILL requested nephrology follow-up. (5) HTN (hypertension) Current Visit: No Status: Chronic Qualifiers: Hypertension type: essential hypertension Plan to address problem: We will resume routine home medications and monitor vital signs closely. (6) Type 2 diabetes mellitus Current Visit: No Status: Chronic Qualifiers: Diabetes mellitus retirement insulin use: without retirement use Plan to address problem: Patient placed on sliding scale insulin. We will monitor Accu-Cheks. (7) DVT prophylaxis Current Visit: No Status: Acute Plan to address problem: Patient placed on subcutaneous heparin. (8) Full code status Current Visit: Yes Status: Acute Plan to address problem: Patient is full code.
[2021-05-15] MEDS ORDERED: DEXTROSE 10% *Hypoglycemia IV PRN (22:54)
[2021-05-16] MEDS ORDERED: FUROSEMIDE 20 MG TAB PO SCH (06:00)
[2021-05-16] MEDS: HEPARIN 5,000 UNIT/1 ML VIAL SUB-Q SCH ×2 (06:06→14:00)
[2021-05-16 08:20] LABS: Basophils % (Auto) 0.6 % (0.0-1.8); Eosinophils # (Auto) 0.1 K/mm3 (0.0-0.4); Eosinophils % (Auto) 1.5 % (0.0-4.3); Hematocrit 38.3 % (35.5-45.6); Hemoglobin 12.4 gm/dl (11.8-15.2); Lymphocytes # (Auto) 2.7 K/mm3 (1.2-5.4); Lymphocytes % (Auto) 39.1 % (13.4-35.0); Mean Corpuscular HGB Conc 32 % (32-34); Mean Corpuscular Volume 85 fl (84-94); Monocytes # (Auto) 0.7 K/mm3 (0.0-0.8); Monocytes % (Auto) 9.5 % (0.0-7.3); Platelet Count 210 K/mm3 (140-440); Red Blood Count 4.53 M/mm3 (3.65-5.03); Red Cell Distribution Width 13.4 % (13.2-15.2)
[2021-05-16] MEDS: INSULIN LISPRO 100 UNIT/ML SUB-Q SCH ×2 (08:42→11:41)
[2021-05-16 08:44] LABS: Calcium 9.2 mg/dL (8.4-10.2)
--- NOTE | 2021-05-16 09:11 | Progress Note ---
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 Shortness of breath is said to be worse on exertion. He has also had some intermittent cough which is occasionally productive. He denies any fever or chills, no chest pain, no headache or dizziness, no diaphoresis. Patient also indicates that he has been having orthopnea. Patient denies any sick contacts and no recent travel. Denies any contact with anyone with COVID-19. He follows up at [facility] but does not have a automotive vehicle inspector. Work-up in the emergency room today, pertinent findings BUN of 24 and creatinine of 1.7. Troponin was 0.115, BNP 8769, chest x-ray shows mild streaky airspace disease greatest in the lung bases no dense consolidation or effusion. EKG shows sinus rhythm, T wave inversion in the lateral leads, no acute findings. Patient's condition and findings were communicated to the on-call automotive vehicle inspector. No heparin recommended at this time. Past History Past Medical History: diabetes, heart failure, hypertension, renal failure, stroke (Yes (TIA appx 07/13/19, CVA appx 07/17/19)), other (Obesity) Past Surgical History: Other (: incision and drainage rectal area.) Social history: no significant social history Family history: no significant family history Review of Systems Constitutional: no fever, no chills Ears, nose, mouth and throat: no nasal congestion, no sore throat Cardiovascular: dyspnea on exertion, no chest pain, no palpitations Respiratory: cough with sputum Gastrointestinal: no nausea, no vomiting, no diarrhea Genitourinary Male: no dysuria, no hematuria, no flank pain Musculoskeletal: no neck pain, no low back pain Integumentary: no rash, no pruritis Neurological: no headaches, no confusion Psychiatric: no anxiety, no depression Endocrine: no polyphagia, no polydipsia, no polyuria, no nocturia Objective - Exam Narrative Exam: General appearance: Present: no acute distress, well-nourished - EENT Eyes: Present: PERRL, EOM intact. Absent: scleral icterus ENT: hearing intact, clear oral mucosa, dentition normal - Neck Neck: Present: supple, normal ROM - Respiratory Respiratory effort: normal Respiratory: bilateral: CTA - Cardiovascular Rhythm: regular Heart Sounds: Present: S1 & S2. Absent: gallop, systolic murmur, diastolic murmur, rub, click - Extremities Extremities: no ischemia, pulses intact, pulses symmetrical, No edema, normal temperature, Full ROM Peripheral Pulses: within normal limits - Abdominal General gastrointestinal: Present: soft, non-tender, non-distended, normal bowel sounds. Absent: mass - Integumentary Integumentary: Present: clear, warm, dry, normal turgor. Absent: rash - Musculoskeletal Musculoskeletal: strength equal bilaterally - Psychiatric Psychiatric: appropriate mood/affect, intact judgment & insight, memory intact, cooperative - Neurologic Neurologic: CNII-XII intact, no focal deficits, moves all extremities - Vital Signs Vital signs: Vital Signs - 12hr 05/15/21 05/16/21 05/16/21 21:45 01:22 01:31 Temperature 97.9 F 98.1 F Pulse Rate 70 73 69 Respiratory 20 19 22 Rate Blood Pressure 154/112 Blood Pressure 144/95 139/87 [Left] O2 Sat by Pulse 100 98 97 Oximetry 05/16/21 04:28 Temperature 97.9 F Pulse Rate 62 Respiratory 20 Rate Blood Pressure 168/103 Blood Pressure [Left] O2 Sat by Pulse 98 Oximetry - Lab 05/16/21 07:58 05/16/21 07:58 Most recent lab results Calcium 9.2 mg/dL (8.4-10.2) 05/16/21 07:58 Medications & Allergies - Medications Allergies/Adverse Reactions: Allergies No Known Allergies Allergy (Verified 05/16/21 09:08) Home Medications: Home Medications Medication Instructions Recorded Confirmed Last Taken Type hydrALAZINE [Apresoline TAB] 100 mg PO TID #90 tab 01/06/19 07/07/19 Unknown Rx Aspirin 81 mg PO QDAY #30 tablet 07/07/19 Unknown Rx Clopidogrel [Plavix] 75 mg PO QDAY #30 tablet 07/07/19 Unknown Rx Insulin NPH/Regular [NovoLIN 70/30] 45 unit SUB-Q BIDDIAB #30 units 07/07/19 Unknown Rx Insulin Regular, Human [Novolin R] 1 dose SQ TIDAC PRN #1 vial 07/07/19 Unknown Rx Torsemide [Demadex] 20 mg PO BID@0600,1800 #60 tablet 07/07/19 Unknown Rx amLODIPine 5 mg PO DAILY #30 tab 07/07/19 Unknown Rx carvediloL [Coreg] 25 mg PO BID #60 tablet 07/07/19 Unknown Rx cloNIDine [Catapres] 0.2 mg PO BID #60 tablet 07/07/19 Unknown Rx AtorvaSTATin [Lipitor] 40 mg PO QHS #30 tab 07/09/19 Unknown Rx Acetaminophen [Tylenol] 500 mg PO Q6HR PRN #30 tablet 07/25/19 Unknown Rx methOCARBAMOL [Robaxin TAB] 750 mg PO Q8H PRN #24 tablet 07/25/19 Unknown Rx traMADoL [Ultram] 50 mg PO Q6HR PRN #12 tablet 07/25/19 Unknown Rx Active Medications: Generic Name Dose Route Start Last Admin Trade Name Freq PRN Reason Stop Dose Admin Acetaminophen 650 mg 05/15/21 22:35 Acetaminophen 325 Mg Tab PO Q4H PRN Pain MILD(1-3)/Fever >100.5/SANTANA Aspirin 325 mg 05/16/21 10:00 Aspirin Ec 325 Mg Tab PO QDAY MARIBEL Dextrose 0 ml 05/15/21 22:54 Dextrose 10% *Hypoglycemia IV PRN PRN Hypoglycemia Protocol Furosemide 20 mg 05/16/21 06:00 05/16/21 06:08 Furosemide 20 Mg Tab PO 20 mg BID@0600,1800 MARIBEL Administration Heparin Sodium (Porcine) 5,000 unit 05/16/21 06:00 05/16/21 06:06 Heparin 5,000 Unit/1 Ml Vial SUB-Q 5,000 unit Q8HR MARIBEL Administration Insulin Human Lispro 0 unit 05/16/21 07:30 05/16/21 08:42 Insulin Lispro 100 Unit/Ml SUB-Q Not Given ACHS MARIBEL Protocol Magnesium Hydroxide 30 ml 05/15/21 22:35 Magnesium Hydroxide (Mom) Oral Liqd Udc PO Q4H PRN Constipation Morphine Sulfate 2 mg 05/15/21 22:35 Morphine 2 Mg/1 Ml Inj IV Q4H PRN Pain, Moderate (4-6) Morphine Sulfate 4 mg 05/15/21 22:35 Morphine 4 Mg/1 Ml Inj IV Q4H PRN Pain , Severe (7-10) Morphine Sulfate 2 mg 05/15/21 22:35 Morphine 4 Mg/1 Ml Inj IV Q5MIN PRN Chest Pain unrelieved by NTG Nitroglycerin 0.4 mg 05/15/21 22:35 Nitroglycerin 0.4 Mg Tab Subl SL Q5M PRN Chest Pain Ondansetron HCl 4 mg 05/15/21 22:35 Ondansetron 4 Mg/2 Ml Inj IV Q8H PRN Nausea And Vomiting Regadenoson 0.4 mg 05/16/21 08:51 Regadenoson 0.4 Mg/5 Ml Inj IV 05/16/21 08:52 ONCE ONE Sodium Chloride 10 ml 05/16/21 10:00 Sodium Chloride 0.9% 10 Ml Flush Syringe IV BID MARIBEL Sodium Chloride 10 ml 05/15/21 22:35 Sodium Chloride 0.9% 10 Ml Flush Syringe IV PRN PRN LINE FLUSH Tramadol HCl 50 mg 05/15/21 22:35 Tramadol 50 Mg Tab PO Q6H PRN Pain, Moderate (4-6)
[2021-05-16] MEDS ORDERED: ASPIRIN EC 325 MG TAB PO SCH (10:00)
[2021-05-16 10:23] VITALS: BP 182/118
[2021-05-16] MEDS ORDERED: REGADENOSON 0.4 MG/5 ML INJ IV ONE (10:30)
--- NOTE | 2021-05-16 11:37 | Consultation ---
History of Present Illness Consult date: 05/16/21 Consult reason: congestive heart failure History of present illness: The patient is a 50-year-old man with a long history of dilated nonischemic cardiomyopathy, initial diagnosis was made in 2015. His left ventricular systolic ejection fraction has been recorded at 10 to 15% on previous echo was in this hospital. He states that he receives his usual cardiac care at the [facility], where he is maintained on medications, but unable to recall any of his medications. His most recent ischemic assessment was a cardiac catheterization which he states was 2 years ago that revealed no significant coronary lesions and I also asked him about any discussions about primary ICD implant, which he says has been considered but his doctors at [facility] felt he was getting better and did not need an ICD. He is [facility] records are not available for review at this time. He presents to the hospital with increasing shortness of breath over several days, associated with fatigue, but no chest pain. ECG is a sinus rhythm with left ventricle hypertrophy and nonspecific ST and T wave abnormalities. Chest x- ray shows a moderate to severe cardiomegaly with clear lungs. Laboratory exam shows a troponin level elevated at 0.115, unchanged on serial measurements, and essentially unchanged on multiple troponin levels measured in this hospital sin ce 2015. Past History Past Medical History: diabetes, heart failure, hypertension, renal failure, stroke (Yes (TIA appx 07/13/19, CVA appx 07/17/19)), other (Obesity) Social history: no significant social history Family history: no significant family history Medications and Allergies Allergies Allergy/AdvReac Type Severity Reaction Status Date / Time No Known Allergies Allergy Verified 05/16/21 09:08 Home Medications Medication Instructions Recorded Confirmed Last Taken Type hydrALAZINE [Apresoline TAB] 100 mg PO TID #90 tab 01/06/19 07/07/19 Unknown Rx Aspirin 81 mg PO QDAY #30 tablet 07/07/19 Unknown Rx Clopidogrel [Plavix] 75 mg PO QDAY #30 tablet 07/07/19 Unknown Rx Insulin NPH/Regular [NovoLIN 70/30] 45 unit SUB-Q BIDDIAB #30 units 07/07/19 Unknown Rx Insulin Regular, Human [Novolin R] 1 dose SQ TIDAC PRN #1 vial 07/07/19 Unknown Rx Torsemide [Demadex] 20 mg PO BID@0600,1800 #60 tablet 07/07/19 Unknown Rx amLODIPine 5 mg PO DAILY #30 tab 07/07/19 Unknown Rx carvediloL [Coreg] 25 mg PO BID #60 tablet 07/07/19 Unknown Rx cloNIDine [Catapres] 0.2 mg PO BID #60 tablet 07/07/19 Unknown Rx AtorvaSTATin [Lipitor] 40 mg PO QHS #30 tab 07/09/19 Unknown Rx Acetaminophen [Tylenol] 500 mg PO Q6HR PRN #30 tablet 07/25/19 Unknown Rx methOCARBAMOL [Robaxin TAB] 750 mg PO Q8H PRN #24 tablet 07/25/19 Unknown Rx traMADoL [Ultram] 50 mg PO Q6HR PRN #12 tablet 07/25/19 Unknown Rx Active Meds: Active Medications Acetaminophen (Acetaminophen 325 Mg Tab) 650 mg PO Q4H PRN PRN Reason: Pain MILD(1-3)/Fever >100.5/SANTANA Dextrose (Dextrose 10% *Hypoglycemia) 0 ml IV PRN PRN; Protocol PRN Reason: Hypoglycemia Heparin Sodium (Porcine) (Heparin 5,000 Unit/1 Ml Vial) 5,000 unit SUB-Q Q8HR [facility] Last Admin: 05/16/21 06:06 Dose: 5,000 unit Insulin Human Lispro (Insulin Lispro 100 Unit/Ml) 0 unit SUB-Q [facility]; Protocol Last Admin: 05/16/21 08:42 Dose: Not Given Morphine Sulfate (Morphine 2 Mg/1 Ml Inj) 2 mg IV Q4H PRN PRN Reason: Pain, Moderate (4-6) Morphine Sulfate (Morphine 4 Mg/1 Ml Inj) 4 mg IV Q4H PRN PRN Reason: Pain , Severe (7-10) Morphine Sulfate (Morphine 4 Mg/1 Ml Inj) 2 mg IV Q5MIN PRN PRN Reason: Chest Pain unrelieved by NTG Nitroglycerin (Nitroglycerin 0.4 Mg Tab Subl) 0.4 mg SL Q5M PRN PRN Reason: Chest Pain Ondansetron HCl (Ondansetron 4 Mg/2 Ml Inj) 4 mg IV Q8H PRN PRN Reason: Nausea And Vomiting Sodium Chloride (Sodium Chloride 0.9% 10 Ml Flush Syringe) 10 ml IV BID [facility] Last Admin: 05/16/21 10:40 Dose: Not Given Sodium Chloride (Sodium Chloride 0.9% 10 Ml Flush Syringe) 10 ml IV PRN PRN PRN Reason: LINE FLUSH Tramadol HCl (Tramadol 50 Mg Tab) 50 mg PO Q6H PRN PRN Reason: Pain, Moderate (4-6) Review of Systems Cardiovascular: orthopnea, shortness of breath, no chest pain, no palpitations, no rapid/irregular heart beat, no edema, no syncope, no lightheadedness Physical Examination Vital Signs Pulse Resp BP Pulse Ox 70 20 144/95 100 05/15/21 21:45 05/15/21 21:45 05/15/21 21:45 05/15/21 21:45 General appearance: mild distress HEENT: Positive: PERRL Neck: Positive: neck supple Cardiac: Positive: Reg Rate and Rhythm Lungs: Positive: Decreased Breath Sounds Neuro: Positive: Grossly Intact Abdomen: Positive: Soft Male genitourinary: Positive: deferred Skin: Positive: Clear Extremities: Absent: edema Results 05/16/21 07:58 05/16/21 07:58 Lipids 05/15/21 Range/Units 19:46 Triglycerides 101 (2-149) mg/dL Cholesterol 121 (50-199) mg/dL HDL Cholesterol 28 L (40-59) mg/dL Cholesterol/HDL Ratio 4.32 % CBC 05/15/21 05/16/21 Range/Units 19:46 07:58 WBC 6.3 6.9 (4.5-11.0) K/mm3 RBC 4.33 4.53 (3.65-5.03) M/mm3 Hgb 11.8 12.4 (11.8-15.2) gm/dl Hct 36.9 38.3 (35.5-45.6) % Plt Count 218 210 (140-440) K/mm3 Lymph # (Auto) 2.4 2.7 (1.2-5.4) K/mm3 [place] # (Auto) 0.9 H 0.7 (0.0-0.8) K/mm3 Eos # (Auto) 0.1 0.1 (0.0-0.4) K/mm3 Baso # (Auto) 0.1 0.0 (0.0-0.1) K/mm3 Comprehensive Metabolic Panel 05/15/21 05/16/21 Range/Units 19:46 07:58 Sodium 141 141 (137-145) mmol/L Potassium 3.6 3.8 (3.6-5.0) mmol/L Chloride 104.5 102.5 (98-107) mmol/L Carbon Dioxide 22 23 (22-30) mmol/L BUN 24 H 26 H (9-20) mg/dL Creatinine 1.7 H 1.9 H (0.8-1.3) mg/dL Glucose 72 L 89 (75-100) mg/dL Calcium 9.1 9.2 (8.4-10.2) mg/dL EKG interpretations - Telemetry EKG Rhythm: Sinus Rhythm Assessment and Plan - Patient Problems (1) Acute on chronic systolic heart failure Current Visit: Yes Status: Acute Plan to address problem: Patient has a long history of a dilated, nonischemic cardiomyopathy and chronic systolic left ventricular failure, which she states is managed by his primary materials management clerk at [facility]. Presents now with acute on chronic systolic heart failure, likely due to noncompliance with medical therapy and dietary salt restrictions. We will resume medical therapy including optimal diuretics, and a trial of intravenous milrinone. An echocardiogram will be ordered for left ventricular systolic function reassessment. If left ventricular systolic ejection fraction is less than 30 to 35%, patient will be recommended for consideration of primary ICD implant in the outpatient setting.
[2021-05-16] MEDS ORDERED: FUROSEMIDE 40 MG/4 ML INJ IV SCH (12:00)
[2021-05-16] MEDS ORDERED: SPIRONOLACTONE 25 MG TAB PO SCH (12:00)
[2021-05-16] MEDS ORDERED: MILRINONE-D5W 20 MG/100 ML 20 MG/100 ML BAG IV SCH (12:00)
[2021-05-16] MEDS ORDERED: carvediloL 6.25 MG TAB PO SCH (12:00)
[2021-05-16] MEDS ORDERED: ISOSORB DINIT/HYDRALAZINE 20-37.5MG TAB PO SCH (14:00)
--- NOTE | 2021-05-16 14:24 | Progress Note ---
Assessment and Plan Assessment and plan: #NSTEMI -Troponin 0.115 -> 0.100; EKG without acute ST changes -Continue ASA, beta-wandy -Lipid panel WNL; will restart atorvastatin #Heart failure with reduced ejection fraction, acute exacerbation #Nonischemic dilated cardiomyopathy -BNP 8769 -Echocardiogram 05/15: LVEF 20%; severe MR, mild to moderate AR -Cardiology following, assistance appreciated -Patient with questionable compliance with outpatient medication -Continue Lasix 40 IV daily, BiDil, Coreg, Aldactone -Milrinone drip started -Strict I's/O's, daily weights, fluid restriction, cardiac diet -Patient counseled on importance of taking medications as prescribed and sticking to a low-sodium diet #Chronic kidney disease -Patient endorses history of CKD -Currently not taking any medications -Renally dose medications, avoid nephrotoxins #Type 2 diabetes -Controlled without medication while inpatient -Continue sliding scale and Accu-Cheks #Hypertension -Continue BP medications as above Disposition Plan: Continue medical management History Interval history: No acute events overnight. Patient reports feeling better after IV diuresis. Denies chest pain or shortness of breath currently. No other complaints at this time. Hospitalist Physical - Physical exam Narrative exam: GENERAL: Well-developed well-nourished. In no acute distress. HEENT: Normocephalic. Atraumatic. NECK: Supple. CHEST/LUNGS: CTAB on room air HEART/CARDIOVASCULAR: RRR. No murmur, rubs or gallops appreciated. ABDOMEN: +BS. NT/ND. SKIN: No rashes noted. NEURO: No focal motor deficit. Follows all commands and is ambulatory. MUSCULOSKELETAL: No joint effusion EXTREMITIES: No cyanosis, clubbing or edema. PSYCH: Cooperative. - Constitutional Vitals: Temp Pulse Resp BP Pulse Ox 98.7 F 71 18 182/118 97 05/16/21 08:17 05/16/21 08:17 05/16/21 08:17 05/16/21 08:17 05/16/21 08:17 General appearance: Present: mild distress HEART Score - HEART Score EKG: Non-specific Age: 45-65 Risk factors: > 3 risk factors or hx of atherosclerotic disease Troponin: Troponin T 0.100 ng/mL (0.00-0.029) H 05/16/21 07:58 Troponin: 1-3x normal limit Results - Labs CBC & Chem 7: 05/16/21 07:58 05/16/21 07:58 Labs: Laboratory Last Values WBC 6.9 K/mm3 (4.5-11.0) 05/16/21 07:58 RBC 4.53 M/mm3 (3.65-5.03) 05/16/21 07:58 Hgb 12.4 gm/dl (11.8-15.2) 05/16/21 07:58 Hct 38.3 % (35.5-45.6) 05/16/21 07:58 MCV 85 fl (84-94) 05/16/21 07:58 MCH 27 pg (28-32) L 05/16/21 07:58 MCHC 32 % (32-34) 05/16/21 07:58 RDW 13.4 % (13.2-15.2) 05/16/21 07:58 Plt Count 210 K/mm3 (140-440) 05/16/21 07:58 Lymph % (Auto) 39.1 % (13.4-35.0) H 05/16/21 07:58 Harnett % (Auto) 9.5 % (0.0-7.3) H 05/16/21 07:58 Eos % (Auto) 1.5 % (0.0-4.3) 05/16/21 07:58 Baso % (Auto) 0.6 % (0.0-1.8) 05/16/21 07:58 Lymph # (Auto) 2.7 K/mm3 (1.2-5.4) 05/16/21 07:58 Harnett # (Auto) 0.7 K/mm3 (0.0-0.8) 05/16/21 07:58 Eos # (Auto) 0.1 K/mm3 (0.0-0.4) 05/16/21 07:58 Baso # (Auto) 0.0 K/mm3 (0.0-0.1) 05/16/21 07:58 Seg Neutrophils % 49.3 % (40.0-70.0) 05/16/21 07:58 Seg Neutrophils # 3.4 K/mm3 (1.8-7.7) 05/16/21 07:58 Sodium 141 mmol/L (137-145) 05/16/21 07:58 Potassium 3.8 mmol/L (3.6-5.0) 05/16/21 07:58 Chloride 102.5 mmol/L (98-107) 05/16/21 07:58 Carbon Dioxide 23 mmol/L (22-30) 05/16/21 07:58 Anion Gap 19 mmol/L 05/16/21 07:58 BUN 26 mg/dL (9-20) H 05/16/21 07:58 Creatinine 1.9 mg/dL (0.8-1.3) H 05/16/21 07:58 Estimated GFR 46 ml/min 05/16/21 07:58 BUN/Creatinine Ratio 14 % 05/16/21 07:58 Glucose 89 mg/dL (75-100) 05/16/21 07:58 POC Glucose 127 mg/dL (70-105) H 05/16/21 11:27 Calcium 9.2 mg/dL (8.4-10.2) 05/16/21 07:58 Troponin T 0.100 ng/mL (0.00-0.029) H 05/16/21 07:58 NT-Pro-B Natriuret Pep 8769 pg/mL (0-900) H 05/15/21 19:46 Triglycerides 101 mg/dL (2-149) 05/15/21 19:46 Cholesterol 121 mg/dL (50-199) 05/15/21 19:46 LDL Cholesterol Direct 82 mg/dL (50-130) 05/15/21 19:46 HDL Cholesterol 28 mg/dL (40-59) L 05/15/21 19:46 Cholesterol/HDL Ratio 4.32 % 05/15/21 19:46 Benitez/IV: Voiding Method Toilet Active Medications - Current Medications Current Medications: Generic Name Dose Route Start Last Admin Trade Name Freq PRN Reason Stop Dose Admin Acetaminophen 650 mg 05/15/21 22:35 Acetaminophen 325 Mg Tab PO Q4H PRN Pain MILD(1-3)/Fever >100.5/SANTANA Aspirin 81 mg 05/17/21 10:00 Aspirin Ec 81 Mg Tab PO QDAY MARIBEL Carvedilol 6.25 mg 05/16/21 12:00 05/16/21 12:07 Carvedilol 6.25 Mg Tab PO 6.25 mg BID MARIBEL Administration Dextrose 0 ml 05/15/21 22:54 Dextrose 10% *Hypoglycemia IV PRN PRN Hypoglycemia Protocol Furosemide 40 mg 05/16/21 12:00 05/16/21 12:07 Furosemide 40 Mg/4 Ml Inj IV 40 mg QDAY [facility] Administration Heparin Sodium (Porcine) 5,000 unit 05/16/21 06:00 05/16/21 06:06 Heparin 5,000 Unit/1 Ml Vial SUB-Q 5,000 unit Q8HR [facility] Administration Milrinone Lactate/Dextrose 20 mg in 100 mls @ 10.206 mls/hr 05/16/21 12:00 05/16/21 12:08 Milrinone-D5w 20 Mg/100 Ml IV 05/19/21 11:59 0.375 mcg/kg/min DIRECT MARIBEL 10.206 mls/hr Administration Protocol 0.375 MCG/KG/MIN Insulin Human Lispro 0 unit 05/16/21 07:30 05/16/21 11:41 Insulin Lispro 100 Unit/Ml SUB-Q Not Given ACHS [facility] Protocol Isosorbide Dinitrate/Hydralazine 1 each 05/16/21 14:00 Isosorb Dinit/Hydralazine 20-37.5mg Tab PO Q8HR [facility] Morphine Sulfate 2 mg 05/15/21 22:35 Morphine 2 Mg/1 Ml Inj IV Q4H PRN Pain, Moderate (4-6) Morphine Sulfate 4 mg 05/15/21 22:35 Morphine 4 Mg/1 Ml Inj IV Q4H PRN Pain , Severe (7-10) Morphine Sulfate 2 mg 05/15/21 22:35 Morphine 4 Mg/1 Ml Inj IV Q5MIN PRN Chest Pain unrelieved by NTG Nitroglycerin 0.4 mg 05/15/21 22:35 Nitroglycerin 0.4 Mg Tab Subl SL Q5M PRN Chest Pain Ondansetron HCl 4 mg 05/15/21 22:35 Ondansetron 4 Mg/2 Ml Inj IV Q8H PRN Nausea And Vomiting Sodium Chloride 10 ml 05/16/21 10:00 05/16/21 10:40 Sodium Chloride 0.9% 10 Ml Flush Syringe IV Not Given BID MARIBEL Sodium Chloride 10 ml 05/15/21 22:35 Sodium Chloride 0.9% 10 Ml Flush Syringe IV PRN PRN LINE FLUSH Spironolactone 25 mg 05/16/21 12:00 05/16/21 12:07 Spironolactone 25 Mg Tab PO 25 mg QDAY MARIBEL Administration Tramadol HCl 50 mg 05/15/21 22:35 Tramadol 50 Mg Tab PO Q6H PRN Pain, Moderate (4-6)
--- NOTE | 2021-05-16 15:50 | Discharge Summary ---
Providers - Providers Date of Admission: 05/16/21 14:03 Attending physician: RAINA MOORE MD 05/15/21 Consult to Cardiac Rehabilitation [CONS] Routine Reason For Exam: Phase I 05/15/21 22:01 Consult to Cardiology [CONS] Routine Consulting Provider: WERNER DE LA ROSA Reason For Exam: NSTEMI, Cardiomyopathy 05/16/21 02:36 Consult to Physician [CONS] Routine Comment: Consulting Provider: ANITRA HUNT Physician Instructions: Reason For Exam: Renal insufficiency Primary care physician: [employer] MA[employer]GER Hospitalization Condition: Serious Exam - Constitutional Vitals: Temp Pulse Resp BP Pulse Ox 98.7 F 71 18 182/118 97 05/16/21 08:17 05/16/21 08:17 05/16/21 08:17 05/16/21 08:17 05/16/21 08:17 Plan Follow up with: MARY GARCIA MD [Primary Care Provider] - 7 Days
[2021-05-17] MEDS ORDERED: ASPIRIN EC 81 MG TAB PO SCH (10:00)
--- NOTE | 2021-05-17 10:13 | Electrocardiograph Report ---
[facility] Test Date: 2021-05-15 Test Time: 20:58:51 Pat Name: PROMISE MARIA Department: Room: A474 1 Gender: M [employer]: MARISA : 1970 Requested By: STEFANI CORDOBA Order Number: [id number] Reading MD: Matt Barahona Measurements Intervals [place] Rate: 69 P: 12 IA: 213 QRS: -40 QRSD: 118 T: 141 QT: 458 QTc: 489 Interpretive Statements Sinus rhythm Prolonged IA interval LVH WITH IVCD, LAD AND SECONDARY REPOL ABNRM No previous ECG available for comparison Electronically Signed On 05-17-2021 10:13:26 EST by Matt Barahona
--- NOTE | 2021-05-17 10:15 | Electrocardiograph Report ---
[facility] Test Date: 2021-05-16 Test Time: 07:42:46 Pat Name: PROMISE MARIA Department: Room: A474 1 Gender: M [employer] Director: EMA : 1970 Requested By: FILIBERTO JERRY Order Number: [id number] Reading MD: Matt Barahona Measurements Intervals [place] Rate: 68 P: 9 MO: 213 QRS: -35 QRSD: 119 T: 115 QT: 461 QTc: 491 Interpretive Statements Sinus rhythm Prolonged MO interval LVH with IVCD and secondary repol abnrm Anterior ST elevation, probably due to LVH Compared to ECG 05/15/2021 20:58:51 No significant changes Electronically Signed On 05-17-2021 10:15:02 EST by Matt Barahona
== END 2021-05-16 16:00 | disposition home or self-care (01) | DRG 280 ==
LOC: ED 18:15 → 4A 22:36 → OBSVTOIN 05-16 14:03
PROVIDERS: ADMIT Internal Medicine Geriatric Medicine; ATTEND Student in an Organized Health Care Education/Training Program
DX: I21.4 Non-ST elevation (NSTEMI) myocardial infarction (principal); I50.23 Acute on chronic systolic (congestive) heart failure; I42.0 Dilated cardiomyopathy; I13.0 Hypertensive heart and chronic kidney disease with heart failure and stage 1 through stage 4 chronic kidney disease, or unspecified chronic kidney disease; N18.30 Chronic kidney disease, stage 3 unspecified; E11.22 Type 2 diabetes mellitus with diabetic chronic kidney disease
CPT/HCPCS: 36415; 71046; 80048; 80061; 82962; 83880; 84484; 85025; 93005; 93010; 93306; G0378; C8929; J1644; J1940; J2260